=== PATIENT | male | born 1960 | race Hispanic/Latino ===

== ENCOUNTER 2016-08-29 09:56 | Inpatient (IN) | payer MEDICARE, MEDICAID, OTHER ==
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
[2016-08-29] MEDS: Sodium Chloride 0.45% 1,000 ML IV SCH (12:11)
[2016-08-29 12:12] LABS: ADD MANUAL DIFF? NO
[2016-08-29 12:15] LABS: BASO # 0.03 K/mm3 (0.0-2.0); BASO % 0.2 % (0.0-3.0); EOS # 0.2 (0.0-0.7); EOS % 1.3 % (1.5-5.0); GRAN # 9.44 (1.4-6.5); GRAN % 73.1 % (50.0-68.0); HEMATOCRIT 37.1 % (42.0-52.0); LYMPH # 2.5 (1.2-3.4); LYMPH % 19.1 % (22.0-35.0); MEAN CELL VOLUME 86.1 fL (80.0-105.0); MEAN CORPUSCULAR HEMOGLOBIN 30.4 pg (25.0-35.0); MEAN CORPUSCULAR HGB CONC 35.3 g/dl (31.0-37.0); MEAN PLATELET VOLUME 10.9 fl (7.0-11.0); MONO # 0.8 (0.1-0.6); MONO % 6.3 % (1.0-6.0); PLATELET COUNT 228 10^3/uL (120.0-450.0); RED CELL DISTRIBUTION WIDTH 12.9 % (11.5-14.5); WHITE BLOOD COUNT 12.9 10^3/ul (4.5-11.0)
[2016-08-29 12:25] LABS: ALB/GLOB RATIO 1.3 (1.1-1.8); ALKALINE PHOSPHATASE 95 U/L (38-133); ALT/SGPT 79 U/L (7-56); AST/SGOT 43 U/L (15-59); BILIRUBIN,TOTAL 0.7 mg/dL (0.2-1.3); BLOOD UREA NITROGEN 17 mg/dL (7-21); CALCIUM 9.8 mg/dL (8.4-10.5); CARBON DIOXIDE 25 mmol/L (21-33); CHLORIDE 101 mmol/L (98-107); GFR AFRICAN-AMERICAN > 60; GLUCOSE,RANDOM 232 mg/dL (70-110); INR 1.11 (0.93-1.08); PARTIAL THROMBOPLASTIN TIME 27.1 Seconds (23.7-30.8); POTASSIUM 4.8 mmol/L (3.6-5.0); SODIUM 139 mmol/L (132-148); TOTAL PROTEIN 7.8 g/dL (5.8-8.3)
[2016-08-29 15:28] VITALS: BMI 38.9
[2016-08-29] MEDS: Insulin Lispro (humaLOG) MEDIUM Coverage SC SCH ×2 (17:00→23:31)
--- NOTE | 2016-08-29 17:06 | CON ---
DATE: 08/29/2016 CHIEF COMPLAINT/HISTORY OF PRESENT ILLNESS: This is a 55-year-old diabetic vasculopath who presents with ischemia of the right foot. I know the patient from a prior arteriogram in 2014. He had a popl iteal artery angioplasty and stent placement. This was complicated by a subacute thrombosis requirin g thrombolysis. He has only 1-vessel runoff on the right via the anterior tibial artery. He is foll owed by Dr. Menezes and has had progressive ischemia of the right lower extremity. The toes are disc olored and there is a fissure present. He has had previous right toe amputations. His LIYA/PVR exam recently is consistent with restenosis of the right popliteal artery stent. PLAN: I had a conversation with Dr. Menezes. The patient will be admitted for hydration and have a lower extremity arteriogram performed with likely intervention on restenosis in the right popliteal a justina. I discussed the situation with the patient in the office and also in the hospital today. He un derstands the risks and wishes to proceed. Lonnie Saravia MD cc: [id number] TT: 08/29/2016 17:05:37 Confirmation # [id number] Dictation # [id number] adeola
[2016-08-29] MEDS ORDERED: Insulin Human NPH/Reg 70/30 Vial(3 ml) SC SCH (18:00)
[2016-08-29] MEDS: Insulin Lispro 1 UNITS/0.01 ML SC SCH (20:44)
[2016-08-29] MEDS ORDERED: Insulin Detemir 100 units/ml Vial (Levemir) SC SCH (22:00)
[2016-08-29] MEDS: Insulin Detemir 100 units/ml Vial (Levemir) SC SCH (22:48)
--- NOTE | 2016-08-30 00:10 | CP.PCM.PN ---
Subjective - Date & Time of Evaluation Date of Evaluation: 08/30/16 Time of Evaluation: 00:10 - Subjective Subjective: Patient was seen at [facility] because he had complaint of generalized itching. Also has dryness of skin. Lotion was applied which did not help much. Denies rash, sob, wheezing. Has allergies to heparin, PCN, Tetracycline. No allergies to any food. 56 year old white male admitted with chest tightness , cough, dyspnea/Acute bronchitis. Has PMH of IDDM, HTN ,HLD, PVD , diabetic foot ulcer, acute thrombosis of right popliteal artery. Objective - Vital Signs/Intake and Output Vital Signs (last 24 hours): Temp Pulse Resp BP Pulse Ox 98.2 F 97 H 20 137/83 96 08/29/16 16:00 08/29/16 16:00 08/29/16 16:00 08/29/16 16:00 08/29/16 16:00 Intake and Output: 08/29/16 08/30/16 18:59 06:59 Intake Total 600 Balance 600 - Medications Medications: Current Medications Alprazolam (Xanax) 0.5 mg PO BID [facility] PRN Reason: Protocol Amlodipine Besylate (Norvasc) 10 mg PO DAILY [facility] Sodium Chloride (Sodium Chloride 0.45%) 1,000 mls @ 80 mls/hr IV .[id number] [facility] Last Admin: 08/29/16 12:11 Dose: 80 mls/hr Insulin Detemir (Levemir) 45 unit SC [facility] Last Admin: 08/29/16 22:48 Dose: 45 unit Insulin Human Lispro (Humalog Med) 0 units SC [facility] PRN Reason: Protocol Last Admin: 08/29/16 23:31 Dose: Not Given Insulin Human Lispro (Humalog) 10 units SC AC [facility] Last Admin: 08/29/16 20:44 Dose: Not Given Lisinopril (Zestril) 40 mg PO DAILY [facility] - Labs Labs: PT 12.0 Seconds (9.9-11.8) H 08/29/16 12:00 INR 1.11 (0.93-1.08) H 08/29/16 12:00 APTT 27.1 Seconds (23.7-30.8) 08/29/16 12:00 - Constitutional Appears: Well, No Acute Distress - Head Exam Head Exam: ATRAUMATIC, NORMAL INSPECTION, NORMOCEPHALIC - Eye Exam Eye Exam: Normal appearance - ENT Exam ENT Exam: Normal External Ear Exam - Neck Exam Neck Exam: absent: Normal Inspection - Respiratory Exam Respiratory Exam: NORMAL BREATHING PATTERN - Cardiovascular Exam Cardiovascular Exam: absent: JVD - GI/Abdominal Exam GI & Abdominal Exam: absent: Distended - Rectal Exam Rectal Exam: Deferred - Back Exam Back Exam: NORMAL INSPECTION - Neurological Exam Neurological Exam: Alert, Oriented x3 - Psychiatric Exam Psychiatric exam: Normal Affect, Normal Mood - Skin Skin Exam: Dry, Normal Color. absent: Erythema, Petechiae, Rash, Urticaria Assessment and Plan - Assessment and Plan (Free Text) Assessment: A/P:Generalized itching. Dry skin. Acute bronchitis. IDDM. Hypertension. Benadryl 50 mg PO STAT.
[2016-08-30] MEDS: Sodium Chloride 0.45% 1,000 ML IV SCH ×2 (00:23→04:49)
[2016-08-30 07:28] LABS: ADD MANUAL DIFF? NO
[2016-08-30 07:32] LABS: BASO # 0.04 K/mm3 (0.0-2.0); BASO % 0.4 % (0.0-3.0); EOS # 0.3 (0.0-0.7); GRAN # 5.95 (1.4-6.5); GRAN % 61.8 % (50.0-68.0); HEMATOCRIT 35.7 % (42.0-52.0); LYMPH # 2.5 (1.2-3.4); LYMPH % 25.8 % (22.0-35.0); MEAN CORPUSCULAR HEMOGLOBIN 29.4 pg (25.0-35.0); MEAN CORPUSCULAR HGB CONC 34.2 g/dl (31.0-37.0); MONO # 0.9 (0.1-0.6); PLATELET COUNT 212 10^3/uL (120.0-450.0); RED CELL DISTRIBUTION WIDTH 13.1 % (11.5-14.5); WHITE BLOOD COUNT 9.6 10^3/ul (4.5-11.0)
[2016-08-30] MEDS: Insulin Lispro (humaLOG) MEDIUM Coverage SC SCH ×4 (08:15→22:13)
[2016-08-30] MEDS: Insulin Lispro 1 UNITS/0.01 ML SC SCH ×4 (08:36→16:30)
[2016-08-30 08:37] LABS: ALB/GLOB RATIO 1.3 (1.1-1.8); ALKALINE PHOSPHATASE 72 U/L (38-133); ALT/SGPT 69 U/L (7-56); AST/SGOT 45 U/L (15-59); BILIRUBIN,TOTAL 0.8 mg/dL (0.2-1.3); BLOOD UREA NITROGEN 14 mg/dL (7-21); CALCIUM 9.5 mg/dL (8.4-10.5); CARBON DIOXIDE 27 mmol/L (21-33); CHLORIDE 104 mmol/L (98-107); GFR AFRICAN-AMERICAN > 60; GLUCOSE,RANDOM 129 mg/dL (70-110); POTASSIUM 4.5 mmol/L (3.6-5.0); SODIUM 141 mmol/L (132-148); TOTAL PROTEIN 7.1 g/dL (5.8-8.3)
[2016-08-30] MEDS: Insulin Detemir 100 units/ml Vial (Levemir) SC SCH ×3 (08:37→22:17)
[2016-08-30] MEDS ORDERED: Insulin Human NPH/Reg 70/30 Vial(3 ml) SC SCH (10:00)
[2016-08-30] MEDS ORDERED: Home Med 1 UNIT SC SCH ×2 (11:30→16:30)
--- NOTE | 2016-08-30 13:13 | HP ---
HISTORY OF PRESENT ILLNESS: The patient is a 56-year-old man with past medical history of insulin-de pendent diabetes mellitus, hypertension, hyperlipidemia and severe peripheral vascular disease status post acute thrombosis of the right popliteal artery and right anterior tibial artery, status post en dovascular recannulization with reperfusion, whose post-procedure course was complicated by significa nt re-thrombosis and ischemic injury and a history of diabetic foot ulcers followed closely by Dr. Axel kaur, who presented to [facility] for evaluation of discoloration t o the toes on his right foot. The patient was seen in Dr. Saravia's office approximately 1 week ago an d at that time was noted to have mild discoloration of his right toes. However, given the patient's complications with prior revascularization, medical management was initially advised. The patient wa s subsequently seen by Dr. Menezes and again, medical management was advised. However, over the foll owing several days, the patient's cyanosis had progressed and as such, the patient was advised to pre sent to the Emergency Department for evaluation for possible revascularization. PAST MEDICAL HISTORY: As per HPI. Also, history of anxiety disorder. PAST SURGICAL HISTORY: As per HPI. Also, right knee arthroscopy, spinal surgery with fusion of L4-L 5, and amputation of the right foot second toe, third toe, and second and third metatarsals. ALLERGIES: PENICILLIN, TETRACYCLINE AND HEPARIN. MEDICATIONS: Levemir 45 units SC b.i.d., Humalog 10 units SC with meals, Lipitor 20 mg p.o. daily, a mlodipine 10 mg p.o. daily, lisinopril 40 mg p.o. daily, Xanax 0.5 mg p.o. b.i.d., metformin 1000 mg p.o. b.i.d. and Eliquis 5 mg p.o. b.i.d. FAMILY HISTORY: Significant for hypertension and diabetes. SOCIAL HISTORY: The patient denies any toxic habits. REVIEW OF SYSTEMS: A 14 point review of systems is negative except as per HPI. PHYSICAL EXAMINATION: VITAL SIGNS: Temperature 98.2, pulse 90, blood pressure 144/85, respiratory rate 18, oxygen saturati on 97% on room air. GENERAL: No apparent distress. HEENT: PERRL. EOMI. No scleral icterus, no conjunctival pallor. NECK: No JVD, no bruits. LUNGS: Clear to auscultation. CARDIOVASCULAR: Regular rate and rhythm. Normal S1 and S2. ABDOMEN: Obese, normoactive bowel sounds, soft, nontender, nondistended. EXTREMITIES: No edema. Right foot with cyanosis to the remaining toes with fissure present. NEUROLOGIC: Awake, alert and oriented x 3. No focal motor deficits. LABORATORY DATA: WBC 9.6, hemoglobin 12, hematocrit 36, platelets 212. Chemistry reviewed and unrem arkable. ASSESSMENT: The patient is a 56-year-old man with past medical history of insulin-dependent diabetes mellitus, hypertension, hyperlipidemia and severe peripheral vascular disease, status post intervent ional radiology revascularization, who presented to [facility] for e valuation of progressively worsened discoloration of his right lower extremity and who is pending rep eat interventional radiology procedure. PLAN: 1. Severe PVD status post IR revascularization. Input from Dr. Lonnie Saravia noted and appreciated. The patient has ABIs consistent with restenosis of the right popliteal artery stent. Continue with I V fluid hydration. The patient is scheduled for repeat IR procedure today with Dr. Lonnie Saravia. Con tinue with Lipitor 20 mg p.o. daily. Depending on the findings of the procedure, we will discuss wit h Dr. Saravia regarding continued long-term antiplatelet versus anticoagulation therapy. 2. Insulin-dependent diabetes mellitus. Continue with Levemir 45 units SC b.i.d. and Humalog 10 uni ts SC t.i.d. with meals. Continue with metformin 1000 mg p.o. b.i.d. 3. Hypertension. Continue with lisinopril 40 mg p.o. daily and Norvasc 10 mg p.o. daily. 4. Anxiety disorder. Continue with Xanax 0.5 mg p.o. b.i.d. 5. Prophylaxis. GI prophylaxis not indicated as patient is eating. DVT prophylaxis not indicated a s patient is ambulatory. CODE STATUS: Full code. Rojelio Garzon MD cc: [id number] TT: 08/30/2016 13:12:48
[2016-08-30] MEDS ORDERED: Lidocaine 2% Inj (20ml) ONE (13:40)
[2016-08-30] MEDS ORDERED: Nitroglycerin 50mg in D5W 250 ML IV ONE (13:41)
[2016-08-30] MEDS ORDERED: Iodixanol 320 MG/ML 200 ML BOTTLE IV ONE (13:41)
[2016-08-30] MEDS ORDERED: Iodixanol 320 mg/ml 150 ml Bottle IV ONE (13:41)
[2016-08-30] MEDS ORDERED: Midazolam 2 MG/2 ML VIAL ONE ×2 (14:52→15:09)
[2016-08-30] MEDS ORDERED: Eptifibatide 20 mg/10mL Inj IVP ONE (15:21)
[2016-08-30] MEDS ORDERED: Iodixanol 320 MG/ML 100 ML BOTTLE IV ONE (16:14)
[2016-08-30] MEDS ORDERED: Eptifibatide 0.75 mg/ml 100 ML IV ONE (16:18)
--- NOTE | 2016-08-30 17:14 | CON ---
DATE: 08/30/2016 A 56-year-old male well known to the [facility] wound care team seen at bedside for janell nued evaluation and management of recent ischemic changes to his right foot. The patient was seen at the wound center yesterday where his right foot was noted to be ischemic. He was immediately told t o be admitted for vascular workup and possible vascular intervention as soon as possible. The patien t was seen by Dr. Saravia yesterday and Dr. Saravia's recommendation was for patient to have vascular int ervention in the right popliteal artery today. The patient is scheduled to have procedure done today . PAST MEDICAL HISTORY: Significant for longstanding uncontrolled insulin-dependent diabetes with [place]in[place] re peripheral arterial disease, COPD, bronchitis and arterial occlusion of the lower extremity. PAST SURGICAL HISTORY: Includes numerous pedal amputations and vascular interventions. ALLERGIES: THE PATIENT IS ALLERGIC TO HEPARIN, PENICILLIN, AND TETRACYCLINE. HOME MEDICATIONS: Include Xanax, albuterol, Humalog, Trulicity, Lantus, Zestril, Xyzal, Colace, Eliq uis, Norvasc and metformin. LABORATORY FINDINGS: Reveal a white count of 9.6, hemoglobin of 12.2, hematocrit of 35.7, platelet c ount of 212. There is no microbiology to report. VITAL SIGNS: Reveal a temperature of 98.2, pulse rate of 91, blood pressure of 145/84, and respirato ry rate of 20. OBJECTIVE: Nonpalpable pedal pulses noted bilaterally, +2 pitting edema noted bilaterally. The silvano ent is unable to detect 5.07 gram monofilament wire testing bilaterally. Distal aspect of the right forefoot presents with discoloration of the remaining digits which appear bluish-purplish in color. There is noted to be superficial fissuring at the base of the hallux and second digit. There is no p urulence to suggest underlying abscess formation. There are no signs of cellulitic activity. ASSESSMENT: Impending ischemia to the right lower extremity. PLAN: The patient was admitted for hydration and is undergoing restenosis in the right popliteal are a today. The patient's wounds will be covered gently with a dry sterile dressing as to not compress the vessels and exacerbate his condition. The patient will be seen and followed after procedure. Rolf Carballo DPM cc: [id number] TT: 08/30/2016 17:13:49 Confirmation # [id number] Dictation # [id number]
[2016-08-30] MEDS: Eptifibatide 0.75 mg/ml 100 ML IV SCH (21:35)
--- NOTE | 2016-08-30 22:43 | VASCULAR ---
PROCEDURE: 1. Abdominal aortogram and bilateral lower extremity runoff with right selective views. 2. Right popliteal artery stent recanalization with jet stream atherectomy and drug-eluting balloon angioplasty 3. Focal right anterior tibial artery angioplasty its mid segment and at the ankle. 4. Salvage percutaneous catheter-directed thrombo lysis of the distal right anterior tibial artery HISTORY: Severe peripheral vascular disease. Previous right popliteal artery stent placement. Thrombosed stent with ischemic ulceration of the right foot. PHYSICIAN(S): Lonnie Saravia M.D. TECHNIQUE: The relative risks and indications of the procedure were explained to the patient and consent obtained. The patient was hydrated prior to the procedure and the appropriate labs drawn. The patient was placed supine on the arteriogram table and the left groin prepped and draped in the usual sterile fashion. Conscious sedation and monitoring were provided throughout the procedure by a nurse. Via a left common femoral artery approach, a 5 [place]an sheath was placed in the left groin. Through the sheath and over a guidewire, a 5 [place]an flush catheter was placed in the abdominal aorta at the level of the renal arteries and a PA DSA abdominal aortogram performed. The catheter was pulled down to the aortic bifurcation and bilateral oblique DSA pelvic arteriograms performed. Overlapping bilateral lower extremity DSA arteriograms were obtained from the inguinal ligaments to the feet. A 0.035 angled Glidewire was advanced over the bifurcation and placed in the distal right SFA. A 7 [place]an 65 cm destination sheath was placed in the mid to distal right SFA.. The patient has a questionable allergy to heparin. Subsequently integrilin in was utilized. The occluded right popliteal artery stent was crossed easily with a trail of laser catheter. 0.014 bare wire was placed in the right tibioperoneal trunk. Jet stream atherectomy of the occluded right popliteal stent was performed with a 2.1-3.0 catheter. Antegrade flow was re-established. The right popliteal artery was then dilated with 4 and 5 mm drug-eluting balloons. The focal stenosis in the mid right anterior tibial artery was dilated with a root 3.0 mm balloon. The distal right anterior tibial artery was dilated at the ankle with the same 3.0 mm balloon. A small occlusive embolus was noted in the terminal right anterior tibial artery. Through a laser catheter, 4 milligrams of tPA was delivered to the terminal right anterior tibial artery with using pulse-spray technique. The small embolus was successfully lysed. Completion angiograms were obtained. The sheath was removed and hemostasis obtained with a Perclose device. The patient will remain on integrellin for 18 hours. The patient tolerated the procedure well. FINDINGS: There are single renal arteries bilaterally which are widely patent and normal in appearance. The nephrograms are symmetric in appearance. The infrarenal abdominal aorta is widely patent without a radiographically significant stenosis. The aortic bifurcation is widely patent. The common and external iliac arteries are normal in appearance without a significant stenosis. The internal iliac arteries are patent bilaterally. Right lower extremity: The right common femoral artery is patent. The right profunda femoral artery is patent. The right superficial femoral artery is smoothly calcified but widely patent without radiographically significant stenosis.. The right popliteal artery stent is completely occluded. There is reconstitution of the terminal right popliteal artery. There is severe right trifurcation and tibial occlusive disease. There is single vessel runoff via the right anterior tibial artery. There is a severe focal stenosis in the mid right anterior tibial artery. A 2nd moderate to severe stenosis is seen in the terminal right anterior tibial artery. The right peroneal and posterior tibial arteries are occluded. There is severe right pedal occlusive disease. Left lower extremity: Left common femoral artery is patent. The left profunda femoral artery is patent. The left superficial femoral artery is calcified and patent with a moderate stenosis distally.. The left popliteal artery is patent. There is severe left trifurcation and tibial occlusive disease. There is 2 vessel runoff via the left anterior tibial and posterior tibial arteries. All tight focal stenoses are noted in the left anterior tibial artery. IMPRESSION: 1.Successful recanalization of the occluded right popliteal stent using jet stream atherectomy and drug-eluting balloon angioplasty. 2. Successful right anterior tibial artery angioplasty. 3. Salvage pulse- spray thrombolysis of the terminal right anterior tibial artery. 4. 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
[2016-08-31] MEDS: Eptifibatide 0.75 mg/ml 100 ML IV SCH ×2 (02:14→08:36)
[2016-08-31] MEDS: Sodium Chloride 0.45% 1,000 ML IV SCH (04:16)
[2016-08-31 07:17] LABS: ADD MANUAL DIFF? NO
[2016-08-31 07:30] LABS: BASO # 0.04 K/mm3 (0.0-2.0); BASO % 0.4 % (0.0-3.0); EOS # 0.2 (0.0-0.7); EOS % 1.6 % (1.5-5.0); GRAN # 7.41 (1.4-6.5); HEMATOCRIT 36.7 % (42.0-52.0); LYMPH % 18.5 % (22.0-35.0); MEAN CORPUSCULAR HEMOGLOBIN 29.6 pg (25.0-35.0); MEAN CORPUSCULAR HGB CONC 34.1 g/dl (31.0-37.0); MEAN PLATELET VOLUME 11.2 fl (7.0-11.0); MONO # 1.3 (0.1-0.6); MONO % 11.5 % (1.0-6.0); PLATELET COUNT 226 10^3/uL (120.0-450.0); RED CELL DISTRIBUTION WIDTH 13.2 % (11.5-14.5); WHITE BLOOD COUNT 10.9 10^3/ul (4.5-11.0)
[2016-08-31 07:52] LABS: ALB/GLOB RATIO 1.2 (1.1-1.8); ALKALINE PHOSPHATASE 70 U/L (38-133); ALT/SGPT 73 U/L (7-56); AST/SGOT 42 U/L (15-59); BILIRUBIN,TOTAL 1.4 mg/dL (0.2-1.3); BLOOD UREA NITROGEN 11 mg/dL (7-21); CALCIUM 9.5 mg/dL (8.4-10.5); CARBON DIOXIDE 29 mmol/L (21-33); CHLORIDE 102 mmol/L (98-107); GFR AFRICAN-AMERICAN > 60; GLUCOSE,RANDOM 169 mg/dL (70-110); POTASSIUM 4.3 mmol/L (3.6-5.0); SODIUM 139 mmol/L (132-148); TOTAL PROTEIN 7.3 g/dL (5.8-8.3)
[2016-08-31] MEDS: Insulin Lispro (humaLOG) MEDIUM Coverage SC SCH ×3 (08:40→21:45)
--- NOTE | 2016-08-31 08:41 | CP.PCM.PN ---
<Jihan Cates - Last Filed: 08/31/16 08:37> Subjective - Date & Time of Evaluation Date of Evaluation: 08/31/16 Time of Evaluation: 08:37 - Subjective Subjective: 56 y/o male seen at bedside with attending Dr. Menezes for management of ischemic changes to right foot. Patient was seen by Dr. Saravia and had a revascularization of his right popliteal artery performed. Patient denies any acute events overnight. Patient's dressing remains clean,dry,intact. Patient denies any pedal complaints, denies n/f/v/c/d/sob. Objective - Vital Signs/Intake and Output Vital Signs (last 24 hours): Temp Pulse Resp BP Pulse Ox 98.0 F 99 H 20 144/82 100 08/31/16 06:00 08/31/16 06:00 08/31/16 06:00 08/31/16 06:00 08/31/16 06:00 Intake and Output: 08/31/16 08/31/16 06:59 18:59 Intake Total 1161 Output Total 1005 Balance 156 - Medications Medications: Current Medications Alprazolam (Xanax) 0.5 mg PO BID [facility] PRN Reason: Protocol Last Admin: 08/30/16 21:31 Dose: 0.5 mg Amlodipine Besylate (Norvasc) 10 mg PO DAILY [facility] Last Admin: 08/30/16 09:57 Dose: 10 mg Apixaban (Eliquis) 5 mg PO BID [facility] PRN Reason: Protocol Atorvastatin Calcium (Lipitor) 20 mg PO DIN [facility] Sodium Chloride (Sodium Chloride 0.45%) 1,000 mls @ 80 mls/hr IV .[id number] [facility] Stop: 08/31/16 12:00 Last Admin: 08/31/16 04:16 Dose: 80 mls/hr Eptifibatide (Integrilin) 100 mls @ 17.619 mls/hr IV .Q5H41M [facility]; 2 MCG/KG/MIN PRN Reason: Protocol Stop: 08/31/16 12:31 Last Admin: 08/31/16 02:14 Dose: 17.619 mls/hr Insulin Detemir (Levemir) 45 unit SC ACBHS [facility] Last Admin: 08/30/16 22:17 Dose: 45 unit Insulin Human Lispro (Humalog Med) 0 units SC ACHS [facility] PRN Reason: Protocol Last Admin: 08/30/16 22:13 Dose: Not Given Insulin Human Lispro (Humalog) 10 units SC AC [facility] Last Admin: 08/30/16 16:30 Dose: Not Given Lisinopril (Zestril) 40 mg PO DAILY [facility] Last Admin: 08/30/16 09:57 Dose: 40 mg - Labs Labs: 08/31/16 07:00 08/31/16 07:00 PT 12.0 Seconds (9.9-11.8) H 08/29/16 12:00 INR 1.11 (0.93-1.08) H 08/29/16 12:00 APTT 27.1 Seconds (23.7-30.8) 08/29/16 12:00 - Constitutional Appears: Well, Non-toxic, No Acute Distress - Extremities Exam Additional comments: Vasc: nonpalpable pedal pulses bilaterally, +2 pitting edema b/l, CFT < 3 sec to all digits, TG wnl Neuro: grossly diminished derm: bluish purple discoloration noted to distal right forefoot, superficial fissuring at the base of the first and second digit plantarly, no purulence, no drainage, no malodor, no acute clinical signs of infection ortho: no pain on palpation of right forefoot - Neurological Exam Neurological Exam: Alert, Awake, Oriented x3 - Psychiatric Exam Psychiatric exam: Normal Affect, Normal Mood Assessment and Plan - Assessment and Plan (Free Text) Assessment: 56 y/o male seen at bedside for ischemic changes of right forefoot secondary to PAD Plan: patient evaluated and seen at bedside with attending Dr. Menezes labs and vitals reviewed applied light DSD to right forefoot vascular- performed recanalization of occluded right popliteal stent yesterday with right anterior tibial artery angioplasty discussed in detail about exercise/walking program for patient patient instructed to continue moving his legs or else possibility of amputation in the future patient demonstrates verbal understanding of treatment plan patient instructed on importance of diabetic glucose control podiatry will continue to monitor while patient remains in house patient to follow up with Dr. Menezes in wound care center upon discharge <Liseth Menezes - Last Filed: 09/02/16 14:54> Objective - Vital Signs/Intake and Output Vital Signs (last 24 hours): Temp Pulse Resp BP Pulse Ox 98.6 F 100 H 22 138/82 96 09/01/16 09:30 09/01/16 09:30 09/01/16 09:30 09/01/16 09:30 09/01/16 09:30 - Labs Labs: 09/01/16 07:50 09/01/16 07:50 PT 12.0 Seconds (9.9-11.8) H 08/29/16 12:00 INR 1.11 (0.93-1.08) H 08/29/16 12:00 APTT 27.1 Seconds (23.7-30.8) 08/29/16 12:00 Attending/Attestation - Attestation I have personally seen and examined this patient.: Yes I have fully participated in the care of the patient.: Yes I have reviewed all pertinent clinical information, including history, physical exam and plan: Yes
[2016-08-31] MEDS: Insulin Detemir 100 units/ml Vial (Levemir) SC SCH ×2 (09:19→21:40)
[2016-08-31] MEDS: Insulin Lispro 1 UNITS/0.01 ML SC SCH ×2 (09:19→17:35)
--- NOTE | 2016-08-31 09:32 | PN ---
DATE: 08/31/2016 SUBJECTIVE: The patient seen and examined at bedside on the telemetry velez. No acute events overnig ht. He remains afebrile and hemodynamically stable. The patient is status post successful IR recann ulization of the occluded right popliteal stent and right anterior tibial artery angioplasty. The maryann cramer was transferred to the telemetry velez post procedure and this morning is doing well. The patie nt reports improved sensation to his right foot and otherwise offers no complaints. OBJECTIVE: VITAL SIGNS: Temperature 98, pulse 69, blood pressure 144/82, respiratory rate 20, oxygen saturation 100% on room air. GENERAL: No apparent distress. HEENT: PERRL, EOMI. No scleral icterus. No conjunctival pallor. NECK: No JVD, no bruits. LUNGS: Clear to auscultation. CARDIOVASCULAR: Regular rate and rhythm, normal S1, S2. ABDOMEN: Obese, normoactive bowel sounds, soft, nontender, nondistended. EXTREMITIES: No edema. Right foot with cyanosis to remaining toes; however, improved from prior. C apillary refill less than 2 seconds. NEUROLOGIC: Awake, alert and oriented x 3. No focal motor deficits. LABORATORY DATA: WBC 10.9 with 68% neutrophils, hemoglobin 12, hematocrit 36, platelets 226. Chemis try reviewed and unremarkable. ASSESSMENT: The patient is a 56-year-old man with past medical history of insulin-dependent diabetes mellitus, hypertension, hyperlipidemia and severe peripheral vascular disease, status post intervent ional radiology revascularization who presented to [facility] Department for ev aluation of progressively worsening discoloration of his right lower extremity and who is now status post recannulization of restenosed right popliteal stent and angioplasty of the right anterior tibial artery. PLAN: 1. Severe peripheral vascular disease, status post interventional radiology revascularization. Inpu t from Dr. Lonnie Saravia noted and appreciated. Will discontinue Integrilin drip and resume Eliquis 5 mg p.o. b.i.d. Continue with Lipitor 20 mg p.o. daily. Continue with local wound care as per Dr. Axel kaur and the podiatric team. This morning, Dr. Menezes and myself had a lengthy discussion with the patient regarding the need to initiate an exercise regimen so as to improve his overall prognosis an d so as to salvage the right foot. 2. Insulin-dependent diabetes mellitus. Continue with Levemir 45 units SC b.i.d. and Humalog 10 uni ts SC t.i.d. with meals. Continue with metformin 1000 mg p.o. b.i.d. 3. Hypertension. Continue with lisinopril 40 mg p.o. daily and Norvasc 10 mg p.o. daily. 4. Anxiety disorder. Continue with Xanax 0.5 mg p.o. b.i.d. 5. Prophylaxis. GI prophylaxis not indicated as the patient is eating. DVT prophylaxis not indicat ed as the patient is on Eliquis. CODE STATUS: Full code. oRjelio Garzon MD cc: [id number] TT: 08/31/2016 09:31:43 Confirmation # [id number] Dictation # [id number] alvin
[2016-09-01 08:00] LABS: ADD MANUAL DIFF? NO
[2016-09-01 08:12] LABS: BASO # 0.02 K/mm3 (0.0-2.0); BASO % 0.2 % (0.0-3.0); EOS # 0.2 (0.0-0.7); EOS % 1.5 % (1.5-5.0); GRAN # 7.88 (1.4-6.5); GRAN % 67.8 % (50.0-68.0); HEMATOCRIT 34.7 % (42.0-52.0); LYMPH # 2.3 (1.2-3.4); LYMPH % 19.6 % (22.0-35.0); MEAN CELL VOLUME 87.2 fL (80.0-105.0); MEAN CORPUSCULAR HEMOGLOBIN 29.6 pg (25.0-35.0); MEAN PLATELET VOLUME 10.9 fl (7.0-11.0); MONO # 1.3 (0.1-0.6); MONO % 10.9 % (1.0-6.0); PLATELET COUNT 208 10^3/uL (120.0-450.0); RED CELL DISTRIBUTION WIDTH 13.1 % (11.5-14.5); WHITE BLOOD COUNT 11.6 10^3/ul (4.5-11.0)
[2016-09-01] MEDS: Insulin Detemir 100 units/ml Vial (Levemir) SC SCH (08:12)
[2016-09-01] MEDS: Insulin Lispro (humaLOG) MEDIUM Coverage SC SCH (08:13)
[2016-09-01] MEDS: Insulin Lispro 1 UNITS/0.01 ML SC SCH (08:21)
[2016-09-01 08:55] LABS: ALKALINE PHOSPHATASE 70 U/L (38-133); ALT/SGPT 63 U/L (7-56); AST/SGOT 38 U/L (15-59); BILIRUBIN,TOTAL 1.2 mg/dL (0.2-1.3); BLOOD UREA NITROGEN 14 mg/dL (7-21); CALCIUM 9.3 mg/dL (8.4-10.5); CARBON DIOXIDE 27 mmol/L (21-33); CHLORIDE 101 mmol/L (98-107); GFR AFRICAN-AMERICAN > 60; GLUCOSE,RANDOM 199 mg/dL (70-110); POTASSIUM 4.3 mmol/L (3.6-5.0); SODIUM 139 mmol/L (132-148)
[2016-09-01 08:58] VITALS: BP 138/82; PULSE 100; RESP 22; TEMP 98.6; O2SAT 96
[2016-09-01 08:58] LABS: TOTAL PROTEIN 7.2 g/dL (5.8-8.3)
[2016-09-01 09:07] LABS: ALB/GLOB RATIO 1.3 (1.1-1.8)
--- NOTE | 2016-09-01 09:49 | PN ---
DATE: 09/01/2016 SUBJECTIVE: The patient seen and examined at bedside on the general medical velez. No acute events o vernight. He remains afebrile and hemodynamically stable. The patient is doing well status post his IR revascularization of his occluded right popliteal stent. This morning, he states he feels well a nd offers no complaints. OBJECTIVE: VITAL SIGNS: Temperature 98.4, pulse 100, blood pressure 147/96, respiratory rate 20, oxygen saturat ion 100% on room air. GENERAL: No apparent distress. HEENT: PERRL. EOMI. No scleral icterus. No conjunctival pallor. NECK: No JVD, no bruits. LUNGS: Clear to auscultation. CARDIOVASCULAR: Regular rate and rhythm. Normal S1 and S2. ABDOMEN: Obese, normoactive bowel sounds, soft, nontender, nondistended. EXTREMITIES: No edema. Right foot with improving cyanosis to his remaining toes and with satisfacto ry capillary refill. NEUROLOGIC: Awake, alert and oriented x 3. No focal motor deficits. LABORATORY DATA: WBC 11.6 with 67% neutrophils, hemoglobin 12, hematocrit 35, platelets 208. Chemis try pending. ASSESSMENT: The patient is a 56-year-old man with past medical history of insulin-dependent diabetes mellitus, hypertension, hyperlipidemia and severe peripheral vascular disease, status post IR revasc ularization who presents to [facility] Emergency Department for evaluation of progressive ly worsening discoloration of his right lower extremity and who is now status post repeat IR revascul arization of the restenosed right popliteal stent and angioplasty of the right anterior tibial artery . PLAN: 1. Severe PVD status post IR revascularization. Input from Dr. Lonnie Saravia noted and appreciated. Continue with Eliquis 5 mg p.o. b.i.d. and Lipitor 20 mg p.o. daily. Continue with local wound care per Dr. Menezes and the podiatric team. Continue to encourage ambulation. 2. Insulin-dependent diabetes mellitus. Continue with Levemir 45 units SC b.i.d. and Humalog 10 uni ts SC t.i.d. with meals. Continue with metformin 1000 mg p.o. b.i.d. 3. Hypertension. Blood pressure controlled. Continue with lisinopril 40 mg p.o. daily and Norvasc 10 mg p.o. daily. 4. Anxiety disorder. Continue with Xanax 0.5 mg p.o. b.i.d. 5. Prophylaxis. GI prophylaxis not indicated as patient is eating. The patient remains on Eliquis for his PVD, thus DVT prophylaxis not indicated. CODE STATUS: Full code. Rojelio Garzon MD cc: [id number] TT: 09/01/2016 09:48:24 Confirmation # [id number] Dictation # [id number] an
== END 2016-09-01 10:48 | disposition home or self-care (01) | DRG 271 ==
LOC: ED 09:56 → ERH 12:50 → 5RSO 14:27 → 2RSO 08-30 18:52 → 5RSO 08-31 10:38
PROVIDERS: ADMIT Student in an Organized Health Care Education/Training Program; ATTEND Student in an Organized Health Care Education/Training Program
PROC: 047M3Z1 Dilation of Right Popliteal Artery using Drug-Coated Balloon, Percutaneous Approach (ICD-10-PCS; principal; 2016-08-30)
PROC: 04CM3ZZ Extirpation of Matter from Right Popliteal Artery, Percutaneous Approach (ICD-10-PCS; 2016-08-30)
PROC: 047P3ZZ Dilation of Right Anterior Tibial Artery, Percutaneous Approach (ICD-10-PCS; 2016-08-30)
PROC: 3E05317 Introduction of Other Thrombolytic into Peripheral Artery, Percutaneous Approach (ICD-10-PCS; 2016-08-30)
PROC: B40DYZZ Plain Radiography of Aorta and Bilateral Lower Extremity Arteries using Other Contrast (ICD-10-PCS; 2016-08-30)
PROC: 3E033PZ Introduction of Platelet Inhibitor into Peripheral Vein, Percutaneous Approach (ICD-10-PCS; 2016-08-30)
DX: E10.51 Type 1 diabetes mellitus with diabetic peripheral angiopathy without gangrene (principal); J44.0 Chronic obstructive pulmonary disease with (acute) lower respiratory infection; E10.621 Type 1 diabetes mellitus with foot ulcer; T82.858A Stenosis of other vascular prosthetic devices, implants and grafts, initial encounter; J44.1 Chronic obstructive pulmonary disease with (acute) exacerbation; I10 Essential (primary) hypertension; E78.5 Hyperlipidemia, unspecified; J20.9 Acute bronchitis, unspecified; L29.9 Pruritus, unspecified; Z79.01 Long term (current) use of anticoagulants; Z79.4 Long term (current) use of insulin; Z79.899 Other long term (current) drug therapy; Z82.49 Family history of ischemic heart disease and other diseases of the circulatory system; Z83.3 Family history of diabetes mellitus; Z86.718 Personal history of other venous thrombosis and embolism; Z88.8 Allergy status to other drugs, medicaments and biological substances; Z88.1 Allergy status to other antibiotic agents; Z88.0 Allergy status to penicillin; Z89.421 Acquired absence of other right toe(s); I77.1 Stricture of artery; F41.9 Anxiety disorder, unspecified; L97.509 Non-pressure chronic ulcer of other part of unspecified foot with unspecified severity

== ENCOUNTER 2016-09-12 11:58 | Inpatient (IN) | payer MEDICARE, OTHER ==
[2016-09-08 06:50] VITALS: BMI 38.3
[2016-09-12] MEDS ORDERED: Ketamine 10 mg/ml Inj (20 ml) ONE (15:55)
[2016-09-12] MEDS ORDERED: Midazolam 2 MG/2 ML VIAL ONE ×2 (15:56→15:57)
[2016-09-12] MEDS ORDERED: Lidocaine 1% Inj (20ml) ONE ×2 (16:16→16:17)
[2016-09-12] MEDS ORDERED: Bupivacaine 0.5% Inj(30mL) ONE (16:16)
[2016-09-12] MEDS ORDERED: Propofol 10 mg/ml Inj (20 ML) ONE (16:44)
[2016-09-12] MEDS ORDERED: Phenylephrine 10 mg/ml Inj ONE (17:26)
[2016-09-12] MEDS ORDERED: HYDROmorphone 0.5 mg/0.5 ml ISec IVP PRN (18:21)
[2016-09-12] MEDS ORDERED: Sodium Chloride 0.9% 1,000 ML IV SCH (18:30)
--- NOTE | 2016-09-12 18:35 | PCM.SURG1 ---
Surgeon's Initial Post Op Note - Surgeon's Notes Surgeon: Dr. Menezes Tripper: Dr. Adelita Tran PGY1 Type of Anesthesia: IV Sedation, Local Anesthesia Administered By: Dr. Estrada Pre-Operative Diagnosis: Right foot ischmic changes to forefoot with dry gangrene to Digits Operative Findings: Materials: TLC Drain. Skin [place]. 3-0 Monocril. 4-0 Nylon Post-Operative Diagnosis: same Operation Performed: Right foot Trans Metatarsal Amputation Specimen/Specimens Removed: -Forefoot including 1st, 4th and 5th digits,. - metatarsal heads/necks of 1st, 2nd, 3rd, 4th and 5th metatarsals Estimated Blood Loss: EBL {In ML}: 30 Blood Products Given: N/A Drains Used: Munir Post-Op Condition: Good Date of Surgery/Procedure: 09/12/16 Time of Surgery/Procedure: 04:30
[2016-09-12] MEDS ORDERED: Oxycodone/Acetaminophen 5/325 mg Tab ONE (19:04)
[2016-09-12] MEDS: Oxycodone/Acetaminophen 5/325 mg Tab PO PRN ×2 (19:07→23:57)
--- NOTE | 2016-09-12 23:11 | CP.PCM.PN ---
Subjective - Subjective Subjective: [id number] . On Lantus at home.45 Asked nurse to get orders from PMD. Objective - Vital Signs/Intake and Output Vital Signs (last 24 hours): Temp Pulse Resp BP Pulse Ox 98.1 F 93 H 16 143/81 99 09/12/16 19:05 09/12/16 19:05 09/12/16 19:05 09/12/16 19:05 09/12/16 19:05 Intake and Output: 09/12/16 09/13/16 18:59 06:59 Intake Total 100 540 Balance 100 540 - Medications Medications: Current Medications Acetaminophen (Tylenol 325mg Tab) 650 mg PO Q4H PRN PRN Reason: Pain, Mild (1-3) Oxycodone/Acetaminophen (Percocet 5/325 Mg Tab) 1 tab PO Q4H PRN PRN Reason: Pain, moderate (4-7) Stop: 09/15/16 18:25 Oxycodone/Acetaminophen (Percocet 5/325 Mg Tab) 2 tab PO Q4H PRN PRN Reason: Pain, severe (8-10) Stop: 09/15/16 18:25 Last Admin: 09/12/16 19:07 Dose: 2 tab
[2016-09-12] MEDS: Insulin Detemir 100 units/ml Vial (Levemir) SC SCH (23:57)
[2016-09-13 07:08] LABS: ADD MANUAL DIFF? NO
[2016-09-13 07:27] LABS: ALB/GLOB RATIO 1.2 (1.1-1.8); ALKALINE PHOSPHATASE 70 U/L (38-133); ALT/SGPT 49 U/L (7-56); AST/SGOT 30 U/L (15-59); BILIRUBIN,TOTAL 0.6 mg/dL (0.2-1.3); BLOOD UREA NITROGEN 15 mg/dL (7-21); CALCIUM 9.1 mg/dL (8.4-10.5); CARBON DIOXIDE 27 mmol/L (21-33); CHLORIDE 104 mmol/L (95-110); GFR AFRICAN-AMERICAN > 60; GLUCOSE,RANDOM 143 mg/dL (70-110); POTASSIUM 4.7 mmol/L (3.6-5.0); SODIUM 140 mmol/L (132-148); TOTAL PROTEIN 6.8 g/dL (5.8-8.3)
[2016-09-13] MEDS ORDERED: Insulin Lispro (humaLOG) MEDIUM Coverage SC SCH (07:30)
[2016-09-13 07:56] LABS: BASO # 0.03 K/mm3 (0.0-2.0); BASO % 0.2 % (0.0-3.0); EOS # 0.2 (0.0-0.7); EOS % 1.2 % (1.5-5.0); GRAN # 8.78 (1.4-6.5); HEMATOCRIT 31.9 % (42.0-52.0); LYMPH # 2.1 (1.2-3.4); LYMPH % 17.3 % (22.0-35.0); MEAN CELL VOLUME 87.2 fL (80.0-105.0); MEAN CORPUSCULAR HEMOGLOBIN 29.8 pg (25.0-35.0); MEAN CORPUSCULAR HGB CONC 34.2 g/dl (31.0-37.0); MEAN PLATELET VOLUME 10.6 fl (7.0-11.0); MONO # 1.1 (0.1-0.6); MONO % 9.3 % (1.0-6.0); PLATELET COUNT 210 10^3/uL (120.0-450.0); RED CELL DISTRIBUTION WIDTH 13.1 % (11.5-14.5); WHITE BLOOD COUNT 12.2 10^3/ul (4.5-11.0)
--- NOTE | 2016-09-13 08:31 | RAD ---
PROCEDURE: Right Foot Radiographs. HISTORY: right foot surgery COMPARISON: None. FINDINGS: BONES: Status post transmetatarsal amputation. No fracture. Remaining joint spaces and articular surfaces are preserved. JOINTS: Normal. SOFT TISSUES: Normal. OTHER FINDINGS: None. IMPRESSION: Transmetatarsal amputation.
[2016-09-13] MEDS: Insulin Lispro (humaLOG) MEDIUM Coverage SC SCH ×4 (08:42→23:53)
[2016-09-13] MEDS: Insulin Lispro 1 UNITS/0.01 ML SC SCH ×3 (08:43→16:53)
--- NOTE | 2016-09-13 11:41 | HP ---
HISTORY OF PRESENT ILLNESS: The patient is a 56-year-old male with past medical history of insulin-dependent diabetes mellitus, hypertension, hyperlipidemia and severe peripheral vascular disease, status post acute thrombosis of the right popliteal artery and right anterior tibial artery, status post endovascular recannulization with reperfusion, whose post-procedure course was complicated by significant re-thrombosis and ischemic injury of his right lower extremity with chronic nonhealing ulcerations and dry gangrene, who presented to [facility] for electively scheduled TMA with Dr. Menezes. The patient underwent successful TMA of his right lower extremity with Dr. Menezes and was subsequently transferred to the general medical velez for continued management of his wound drain and continued postoperative care. PAST MEDICAL HISTORY: As per HPI. Also history of anxiety disorder. PAST SURGICAL HISTORY: As per HPI. Also, right knee arthroscopy, spinal surgery with fusion of L4-L5, amputation of the right foot second toe, third toe , and second and third metatarsals. ALLERGIES: PENICILLIN, TETRACYCLINE AND HEPARIN. MEDICATIONS: Levemir 90 units SC at bedtime, Humalog 10 units SC t.i.d. with meals, Lipitor 20 mg p.o. daily, amlodipine 10 mg p.o. daily, lisinopril 40 mg p.o. daily, Xanax 0.5 mg p.o. b.i.d., metformin 1000 mg p.o. b.i.d. and Eliquis 5 mg p.o. b.i.d. FAMILY HISTORY: Significant for hypertension and diabetes. SOCIAL HISTORY: The patient denies any toxic habits. REVIEW OF SYSTEMS: A 14 point review of systems is negative except as per HPI. PHYSICAL EXAMINATION: VITAL SIGNS: Temperature 98.5, pulse 96, blood pressure 132/79, respiratory rate 20, oxygen saturation 96% on room air. GENERAL: No apparent distress. HEENT: PERRL, EOMI. No scleral icterus, no conjunctival pallor. NECK: No JVD, no bruits. LUNGS: Clear to auscultation. CARDIOVASCULAR: Regular rate and rhythm, normal S1 and S2. ABDOMEN: Obese, normoactive bowel sounds, soft, nontender, nondistended. EXTREMITIES: No edema. Right foot with GERONIMO wrapping and wound drain in place, draining sanguineous fluid. NEUROLOGIC: Awake, alert and oriented x 3. No focal motor deficits. LABORATORY DATA: WBC 12.2 with 72% neutrophils, hemoglobin 11, hematocrit 32, platelets 210. Chemistry reviewed and unremarkable. ASSESSMENT: The patient is a 56-year-old man with past medical history of insulin-dependent diabetes mellitus, hypertension, hyperlipidemia and severe peripheral vascular disease, status post interventional radiology revascularization whose post-procedure course was complicated by chronic nonhealing foot ulcers and dry gangrene, who presented to [facility] for electively scheduled right lower extremity TMA and who is now status post successful TMA, postop day #1. PLAN: 1. Severe peripheral vascular disease, status post interventional radiology revascularization, status post right TMA postop day #1. Continue with postoperative care as per Dr. Menezes and the podiatric team. Continue with Lipitor 20 mg p.o. daily and Eliquis 5 mg p.o. b.i.d. 2. Insulin-dependent diabetes mellitus. Continue with Levemir 45 units SC b.i.d. and Humalog 10 units SC t.i.d. with meals and metformin 1000 mg p.o. b.i.d. 3. Hypertension. Continue with lisinopril 40 mg p.o. daily and amlodipine 10 mg p.o. daily. 4. Anxiety disorder. Continue with Xanax 0.5 mg p.o. b.i.d. 5. Hyperlipidemia. Continue with Lipitor 20 mg p.o. daily. 6. Prophylaxis. Gastrointestinal prophylaxis is not indicated as patient is eating. The patient remains on Eliquis for his peripheral vascular disease, thus deep venous thrombosis prophylaxis not indicated. CODE STATUS: Full code. Rojelio Garzon MD cc: [id number] TT: 09/13/2016 11:40:33 rosy [email or web address]
--- NOTE | 2016-09-13 12:14 | CP.PCM.PN ---
<Alejandra Tran - Last Filed: 09/13/16 12:09> Subjective - Date & Time of Evaluation Date of Evaluation: 09/13/16 Time of Evaluation: 10:50 - Subjective Subjective: 56 y/o male patient 1 day s/p Right foot TMA was seen at bedside with attending Dr. Carballo. Patient is resting comfortably in bed with no acute overnight distress. AAO x3. Dressing to Right lower extremity remains clean dry and intact. Patient states that he feels mild pain to the surgical site but the pain is tolerable. Patient denies any pedal complaints, denies n/f/v/c/d/sob. Objective - Vital Signs/Intake and Output Vital Signs (last 24 hours): Temp Pulse Resp BP Pulse Ox 98.5 F 102 H 20 126/80 96 09/13/16 07:30 09/13/16 10:35 09/13/16 07:30 09/13/16 10:35 09/13/16 07:30 Intake and Output: 09/13/16 09/13/16 06:59 18:59 Intake Total 540 Output Total 70 Balance 540 -70 - Medications Medications: Current Medications Acetaminophen (Tylenol 325mg Tab) 650 mg PO Q4H PRN PRN Reason: Pain, Mild (1-3) Alprazolam (Xanax) 0.5 mg PO HS PRN; Protocol PRN Reason: Anxiety Amlodipine Besylate (Norvasc) 10 mg PO DAILY [facility] Last Admin: 09/13/16 10:35 Dose: 10 mg Apixaban (Eliquis) 5 mg PO BID [facility] PRN Reason: Protocol Last Admin: 09/13/16 10:35 Dose: 5 mg Atorvastatin Calcium (Lipitor) 20 mg PO DIN [facility] Docusate Sodium (Colace) 100 mg PO BID [facility] Last Admin: 09/13/16 10:35 Dose: 100 mg Insulin Detemir (Levemir) 45 unit SC Q12H [facility] Last Admin: 09/12/16 23:57 Dose: 45 unit Insulin Human Lispro (Humalog Med) 0 units SC ACHS [facility] PRN Reason: Protocol Last Admin: 09/13/16 11:59 Dose: 5 units Insulin Human Lispro (Humalog) 10 units SC AC [facility] Last Admin: 09/13/16 11:59 Dose: 10 units Lisinopril (Zestril) 40 mg PO ACB [facility] Last Admin: 09/13/16 08:41 Dose: 40 mg Metformin HCl (Glucophage) 1,000 mg PO BID [facility] Last Admin: 09/13/16 10:35 Dose: 1,000 mg Oxycodone/Acetaminophen (Percocet 5/325 Mg Tab) 1 tab PO Q4H PRN PRN Reason: Pain, moderate (4-7) Stop: 09/15/16 18:25 Oxycodone/Acetaminophen (Percocet 5/325 Mg Tab) 2 tab PO Q4H PRN PRN Reason: Pain, severe (8-10) Stop: 09/15/16 18:25 Last Admin: 09/12/16 23:57 Dose: 2 tab - Labs Labs: 09/13/16 06:45 09/13/16 06:45 - Constitutional Appears: Well, Non-toxic, No Acute Distress - Extremities Exam Additional comments: Right lower extremity exam Dressing to right lower extremity remains clean dry and intact with drain collection of 10 mL - Neurological Exam Neurological Exam: Alert, Awake, Oriented x3 - Psychiatric Exam Psychiatric exam: Normal Affect, Normal Mood - Skin Skin Exam: Normal Color, Warm Assessment and Plan - Assessment and Plan (Free Text) Assessment: 56 year old male patient presents 1 day s/p Right foot Trans-Metatarsal Amputation Plan: Patient was seen, evaluated and treated with all questions and concerns addressed Rounded with Dr. Carballo present labs and vitals reviewed Drain and Dressing to Right foot is left intact Podiatry will change dressing tomorrow Podiatry will continue to follow in-house <Rolf Carballo - Last Filed: 09/13/16 15:26> Objective - Vital Signs/Intake and Output Vital Signs (last 24 hours): Temp Pulse Resp BP Pulse Ox 98.5 F 102 H 20 126/80 96 09/13/16 07:30 09/13/16 10:35 09/13/16 07:30 09/13/16 10:35 09/13/16 07:30 Intake and Output: 09/13/16 09/13/16 06:59 18:59 Intake Total 540 Output Total 70 Balance 540 -70 - Medications Medications: Current Medications Acetaminophen (Tylenol 325mg Tab) 650 mg PO Q4H PRN PRN Reason: Pain, Mild (1-3) Alprazolam (Xanax) 0.5 mg PO HS PRN; Protocol PRN Reason: Anxiety Amlodipine Besylate (Norvasc) 10 mg PO DAILY [facility] Last Admin: 09/13/16 10:35 Dose: 10 mg Apixaban (Eliquis) 5 mg PO BID [facility] PRN Reason: Protocol Last Admin: 09/13/16 10:35 Dose: 5 mg Atorvastatin Calcium (Lipitor) 20 mg PO DIN [facility] Docusate Sodium (Colace) 100 mg PO BID [facility] Last Admin: 09/13/16 10:35 Dose: 100 mg Insulin Detemir (Levemir) 45 unit SC Q12H [facility] Last Admin: 09/13/16 12:15 Dose: 45 unit Insulin Human Lispro (Humalog Med) 0 units SC ACHS [facility] PRN Reason: Protocol Last Admin: 09/13/16 11:59 Dose: 5 units Insulin Human Lispro (Humalog) 10 units SC AC [facility] Last Admin: 09/13/16 11:59 Dose: 10 units Lisinopril (Zestril) 40 mg PO ACB [facility] Last Admin: 09/13/16 08:41 Dose: 40 mg Metformin HCl (Glucophage) 1,000 mg PO BID [facility] Last Admin: 09/13/16 10:35 Dose: 1,000 mg Oxycodone/Acetaminophen (Percocet 5/325 Mg Tab) 1 tab PO Q4H PRN PRN Reason: Pain, moderate (4-7) Stop: 09/15/16 18:25 Oxycodone/Acetaminophen (Percocet 5/325 Mg Tab) 2 tab PO Q4H PRN PRN Reason: Pain, severe (8-10) Stop: 09/15/16 18:25 Last Admin: 09/12/16 23:57 Dose: 2 tab - Labs Labs: 09/13/16 06:45 09/13/16 06:45 Attending/Attestation - Attestation I have personally seen and examined this patient.: Yes I have fully participated in the care of the patient.: Yes I have reviewed all pertinent clinical information, including history, physical exam and plan: Yes
[2016-09-13] MEDS: Insulin Detemir 100 units/ml Vial (Levemir) SC SCH ×2 (12:15→23:52)
--- NOTE | 2016-09-14 08:21 | OP ---
PROCEDURE DATE: 09/12/2016 SURGEON: Dr. Menezes MUSHROOM GROWING SUPERVISOR: Dr. Theo Tran, PGY-1 CONTACT LENS CUTTER: Dr. Alexis ANESTHESIA: IV sedation and local. PREOPERATIVE DIAGNOSES: Right foot ischemic changes to forefoot with dry gangrene to digits 1, 4 and 5. POSTOPERATIVE DIAGNOSES: Right foot ischemic changes to forefoot with dry gangrene to digits 1, 4 and 5. NAME OF PROCEDURE: Right foot transverse metatarsal amputation. INDICATIONS: The patient is a 56-year-old male patient with the above diagnoses. The patient has exhausted all conservative treatment at this time and now requests surgical intervention. The patient signed the consent after careful explanation of benefits, risks, complications and alternatives for surgical procedure. No guarantees were given nor implied. PREPARATION: The patient was brought into the operating room and placed on the operating room table in a supine position. Timeout was performed for identification of the correct patient and procedure. After induction of IV sedation, the patient received a total of 12 mL of 1:1 mixture of 1% lidocaine plain and 0.5% Marcaine plain in a local block type fashion to the right ankle. Once local anesthesia was achieved, the right foot was then prepped and draped in normal sterile manner and the procedure began. PROCEDURE: Attention was directed to the right foot in which second and third digits were not present due to previous amputation surgery in the past. With the use of a #15 blade, a circumferential incision was made surrounding the distal aspect of the metatarsals straight down to bone, leaving more skin and soft tissue plantarly compared to dorsally, making all metatarsal heads exposed dorsally. All soft tissue attachments were freed from the metatarsal heads first, fourth and fifth with a #15 blade and pickup. After cutting all soft tissue attachments to metatarsal heads, entire forefoot distal to the metatarsophalangeal joint was removed from the proximal mid foot. Utilizing a # 15 blade and a pickup, soft tissue around the neck of the metatarsals 1-5 were freed from the osseous attachments exposing the diaphysis of the metatarsals. Metatarsal heads of second and third metatarsals were already resected from the previous surgery. Utilizing a sagittal saw, the distal aspect of the metatarsal heads 1, 4 and 5 were resected and removed from the distal aspect of the right foot. Utilizing a rasp, the remaining sharp edges of metatarsals 1-5 were debrided down for smooth edges. The thickened soft tissues were debrided for proper closure. All the exposed tendons were resected with hemostat and dissection scissors. The wound site was flushed with copious amount of mixture of normal saline. At this point, a small stab incision was made to plantar medial aspect of the right foot. A Westbrook drain was inserted into the stab incision and was embedded into the foot. A plantar tissue flap was then brought up dorsally to cover the metatarsal stumps, leaving the distal end of the Munir drain in the right foot. The remainder of the metatarsal stumps and the deep tissues were reapproximated with #3-0 Monocryl. The skin was reapproximated with a #4-0 nylon and skin lakhwinder. The wound was dressed with Adaptic and sterile gauze and Kerlix. The attending was present the entire case. POSTOPERATIVE CONDITION: The patient tolerated the anesthesia and procedure well and was escorted to the recovery room with vital signs stable and neurovascular status intact to the right foot. The patient will be admitted to the floors for IV antibiotic treatment. THEO TRAN DPM Liseth Menezes DPM cc: [id number] TT: 09/14/2016 07:37:34 en MTDD
[2016-09-14] MEDS: Insulin Lispro (humaLOG) MEDIUM Coverage SC SCH ×4 (08:27→22:15)
[2016-09-14] MEDS: Insulin Lispro 1 UNITS/0.01 ML SC SCH ×3 (08:29→16:56)
--- NOTE | 2016-09-14 09:13 | PN ---
DATE: 09/14/2016 SUBJECTIVE: The patient is seen and examined at bedside on the general medical velez. No acute event s overnight. He remains afebrile and hemodynamically stable. This morning, the patient was getting his right lower extremity dressing changed by the podiatry resident along with Dr. Menezes. Per my d iscussion with the patient and Dr. Menezes, the patient is doing very well postoperatively, and Dr. Ray mccrary anticipates him to recover quite nicely. This morning, the patient states he feels well and offers no complaints. OBJECTIVE: VITAL SIGNS: Temperature 98.4, pulse 101, blood pressure 131/79, respiratory rate 20, oxygen saturat ion 97% on room air. GENERAL: No apparent distress. HEENT: PERRL. EOMI. No scleral icterus. No conjunctival pallor. NECK: No JVD, no bruits. LUNGS: Clear to auscultation. CARDIOVASCULAR: Regular rate and rhythm. Normal S1 and S2. ABDOMEN: Obese, normoactive bowel sounds, soft, nontender, nondistended. EXTREMITIES: No edema. Right foot with GERONIMO wrapping in place. NEUROLOGIC: Awake, alert, and oriented x 3. No focal motor deficits. LABORATORY DATA: Morning labs are pending. ASSESSMENT: The patient is a 56-year-old male with past medical history of insulin-dependent diabete s mellitus, hypertension, hyperlipidemia, and severe peripheral vascular disease, status post IR erasto scularization, whose post-procedure course was complicated by chronic and nonhealing foot ulcers and dry gangrene, who is now status post right transmetatarsal amputation postop day #2. PLAN: 1. Severe peripheral vascular disease, status post IR revascularization, status post right TMA posto p day #2. Continue with postoperative care, as per Dr. Menezes and the podiatric team. The patient is status post removal of wound drain and is doing well. Continue with Lipitor 20 mg p.o. daily and Eliquis 5 mg p.o. b.i.d. 2. Insulin-dependent diabetes mellitus. Continue with Levemir 45 units subcutaneously b.i.d., Humal og 10 units subcutaneously t.i.d. with meals and metformin 1000 mg p.o. b.i.d. Continue to monitor f ingersticks q. a.c. and at bedtime. 3. Hypertension. Continue with lisinopril 40 mg p.o. daily and amlodipine 10 mg p.o. daily. 4. Anxiety disorder. Continue with Xanax 0.5 mg p.o. b.i.d. 5. Hyperlipidemia. Continue with Lipitor 20 mg p.o. daily. 6. Prophylaxis. GI prophylaxis not indicated, as the patient is eating. The patient remains on Marla sara for his peripheral vascular disease, thus, DVT prophylaxis is not indicated. CODE STATUS: Full code. Rojelio Garzon MD cc: [id number] TT: 09/14/2016 09:13:03 Confirmation # [id number] Dictation # [id number] jn
[2016-09-14 09:16] LABS: ADD MANUAL DIFF? NO
[2016-09-14 09:21] LABS: BASO # 0.03 K/mm3 (0.0-2.0); BASO % 0.2 % (0.0-3.0); EOS # 0.2 (0.0-0.7); EOS % 1.6 % (1.5-5.0); GRAN # 9.13 (1.4-6.5); GRAN % 68.2 % (50.0-68.0); HEMATOCRIT 31.3 % (42.0-52.0); LYMPH # 2.6 (1.2-3.4); LYMPH % 19.3 % (22.0-35.0); MEAN CELL VOLUME 87.2 fL (80.0-105.0); MEAN CORPUSCULAR HEMOGLOBIN 29.5 pg (25.0-35.0); MEAN CORPUSCULAR HGB CONC 33.9 g/dl (31.0-37.0); MEAN PLATELET VOLUME 10.6 fl (7.0-11.0); MONO # 1.4 (0.1-0.6); MONO % 10.7 % (1.0-6.0); PLATELET COUNT 255 10^3/uL (120.0-450.0); RED CELL DISTRIBUTION WIDTH 13.1 % (11.5-14.5); WHITE BLOOD COUNT 13.4 10^3/ul (4.5-11.0)
--- NOTE | 2016-09-14 09:22 | CP.PCM.PN ---
Subjective - Date & Time of Evaluation Date of Evaluation: 09/14/16 Time of Evaluation: 08:30 - Subjective Subjective: 56 y/o male patient 2 days s/p Right foot TMA was seen at bedside with attending Dr. Menezes. Patient is resting comfortably in bed with no acute overnight distress. AAO x3. Dressing to Right lower extremity and the sandra drain remains clean dry and intact. Patient denies of any pain to surgical site today. Patient denies any pedal complaints, denies n/f/v/c/d/sob. Objective - Vital Signs/Intake and Output Vital Signs (last 24 hours): Temp Pulse Resp BP Pulse Ox 98.4 F 101 H 20 131/79 97 09/14/16 08:21 09/14/16 08:21 09/14/16 08:21 09/14/16 08:21 09/14/16 08:21 Intake and Output: 09/14/16 09/14/16 06:59 18:59 Intake Total 420 Output Total 500 Balance -80 - Medications Medications: Current Medications Acetaminophen (Tylenol 325mg Tab) 650 mg PO Q4H PRN PRN Reason: Pain, Mild (1-3) Last Admin: 09/13/16 17:05 Dose: 650 mg Alprazolam (Xanax) 0.5 mg PO HS PRN; Protocol PRN Reason: Anxiety Last Admin: 09/13/16 22:13 Dose: 0.5 mg Amlodipine Besylate (Norvasc) 10 mg PO DAILY [facility] Last Admin: 09/13/16 10:35 Dose: 10 mg Apixaban (Eliquis) 5 mg PO BID [facility] PRN Reason: Protocol Last Admin: 09/13/16 17:01 Dose: 5 mg Atorvastatin Calcium (Lipitor) 20 mg PO DIN [facility] Last Admin: 09/13/16 17:01 Dose: 20 mg Docusate Sodium (Colace) 100 mg PO BID [facility] Last Admin: 09/13/16 17:01 Dose: 100 mg Insulin Detemir (Levemir) 45 unit SC Q12H [facility] Last Admin: 09/13/16 23:52 Dose: 45 unit Insulin Human Lispro (Humalog Med) 0 units SC ACHS [facility] PRN Reason: Protocol Last Admin: 09/14/16 08:27 Dose: 1 units Insulin Human Lispro (Humalog) 10 units SC AC [facility] Last Admin: 09/14/16 08:29 Dose: 10 units Lisinopril (Zestril) 40 mg PO ACB [facility] Last Admin: 09/14/16 08:29 Dose: 40 mg Metformin HCl (Glucophage) 1,000 mg PO BID [facility] Last Admin: 09/13/16 17:01 Dose: 1,000 mg Oxycodone/Acetaminophen (Percocet 5/325 Mg Tab) 1 tab PO Q4H PRN PRN Reason: Pain, moderate (4-7) Stop: 09/15/16 18:25 Oxycodone/Acetaminophen (Percocet 5/325 Mg Tab) 2 tab PO Q4H PRN PRN Reason: Pain, severe (8-10) Stop: 09/15/16 18:25 Last Admin: 09/12/16 23:57 Dose: 2 tab - Labs Labs: 09/13/16 06:45 09/13/16 06:45 - Constitutional Appears: Well, Non-toxic, No Acute Distress - Extremities Exam Additional comments: Right lower extremity exam DERM: Incision site remains well coapted with all sutures intact. No wound dehiscence is noted. Penfield drain remains intact with collection of 15mL. No erythema is noted around the surgical site. No sign of acute infection is noted. VASC: Palpable DP and PT noted to be 1/4 bilaterally. PLANT EQUIPMENT ENGINEER less than 3 seconds to all digits ORTHO: no pain is induced to the right foot surgical site NEURO: Gross sensation intact - Neurological Exam Neurological Exam: Alert, Awake, Oriented x3 - Psychiatric Exam Psychiatric exam: Normal Affect, Normal Mood - Skin Skin Exam: Normal Color, Warm Assessment and Plan - Assessment and Plan (Free Text) Assessment: 56 year old male patient presents 2 days s/p Right foot Trans-Metatarsal Amputation Plan: Patient was seen, evaluated and treated with all questions and concerns addressed Rounded with Dr. Menezes present labs and vitals reviewed Sandra drain was pulled out from the right foot at bedside without any complication. Right foot was cleansed with saline socked gauze. Right foot dressed with adaptic and DSD Darco wedge shoe was ordered and waiting arrival Patient can start weight bearing to right foot only when the Darco forefoot wedge shoe arrives and applied to his right foot Podiatry will continue to follow in-house
[2016-09-14 09:29] LABS: ALB/GLOB RATIO 1.2 (1.1-1.8); ALKALINE PHOSPHATASE 72 U/L (38-133); ALT/SGPT 48 U/L (7-56); AST/SGOT 20 U/L (15-59); BILIRUBIN,TOTAL 0.7 mg/dL (0.2-1.3); BLOOD UREA NITROGEN 19 mg/dL (7-21); CARBON DIOXIDE 26 mmol/L (21-33); CHLORIDE 102 mmol/L (98-107); GFR AFRICAN-AMERICAN > 60; GLUCOSE,RANDOM 206 mg/dL (70-110); POTASSIUM 4.5 mmol/L (3.6-5.0); SODIUM 138 mmol/L (132-148); TOTAL PROTEIN 7.2 g/dL (5.8-8.3)
[2016-09-14] MEDS: Insulin Detemir 100 units/ml Vial (Levemir) SC SCH ×2 (10:43→23:23)
[2016-09-14] MEDS: Oxycodone/Acetaminophen 5/325 mg Tab PO PRN (17:47)
[2016-09-15 07:07] LABS: ADD MANUAL DIFF? NO
[2016-09-15 07:18] LABS: BASO # 0.03 K/mm3 (0.0-2.0); BASO % 0.2 % (0.0-3.0); EOS # 0.3 (0.0-0.7); EOS % 2.7 % (1.5-5.0); GRAN # 7.62 (1.4-6.5); GRAN % 63.2 % (50.0-68.0); HEMATOCRIT 29.9 % (42.0-52.0); LYMPH # 2.8 (1.2-3.4); LYMPH % 23.4 % (22.0-35.0); MEAN CELL VOLUME 87.4 fL (80.0-105.0); MEAN CORPUSCULAR HEMOGLOBIN 29.8 pg (25.0-35.0); MEAN CORPUSCULAR HGB CONC 34.1 g/dl (31.0-37.0); MEAN PLATELET VOLUME 10.6 fl (7.0-11.0); MONO # 1.3 (0.1-0.6); MONO % 10.5 % (1.0-6.0); PLATELET COUNT 234 10^3/uL (120.0-450.0); RED CELL DISTRIBUTION WIDTH 13.2 % (11.5-14.5); WHITE BLOOD COUNT 12.1 10^3/ul (4.5-11.0)
[2016-09-15 07:42] LABS: ALB/GLOB RATIO 1.2 (1.1-1.8); ALKALINE PHOSPHATASE 68 U/L (38-133); ALT/SGPT 43 U/L (7-56); AST/SGOT 20 U/L (15-59); BILIRUBIN,TOTAL 0.6 mg/dL (0.2-1.3); BLOOD UREA NITROGEN 20 mg/dL (7-21); CARBON DIOXIDE 28 mmol/L (21-33); CHLORIDE 102 mmol/L (98-107); GFR AFRICAN-AMERICAN > 60; GLUCOSE,RANDOM 158 mg/dL (70-110); POTASSIUM 4.7 mmol/L (3.6-5.0); SODIUM 137 mmol/L (132-148)
[2016-09-15] MEDS: Insulin Lispro 1 UNITS/0.01 ML SC SCH ×3 (08:05→17:12)
[2016-09-15] MEDS: Insulin Lispro (humaLOG) MEDIUM Coverage SC SCH ×4 (08:05→21:36)
--- NOTE | 2016-09-15 09:16 | PN ---
DATE: 09/15/2016 SUBJECTIVE: The patient seen and examined at bedside on the general medical velez. No acute events overnight. He remains afebrile and hemodynamically stable. This morning, the patient states he feels well and is anticipating transfer to the TCU for continued physical therapy, and otherwise offers no complaints. OBJECTIVE: VITAL SIGNS: Temperature 98.7, pulse 98, blood pressure 132/85, respiratory rate 20, oxygen saturation 96% on room air. GENERAL: No apparent distress. HEENT: PERRLA, EOMI. No scleral icterus. No conjunctival pallor. NECK: No JVD, no bruits. LUNGS: Clear to auscultation. CARDIOVASCULAR: Regular rate and rhythm. Normal S1 and S2. ABDOMEN: Obese, normoactive bowel sounds, soft, nontender, nondistended. EXTREMITIES: No edema. Right foot with Anjel wrapping in place. NEUROLOGIC: Awake, alert and oriented x 3. No focal motor deficits. LABORATORY DATA: WBC 12 with 63% neutrophils, hemoglobin 10, hematocrit 30, platelets 234. Chemistry reviewed and unremarkable. ASSESSMENT: The patient is a 56-year-old man with past medical history of insulin-dependent diabetes mellitus, hypertension, hyperlipidemia and severe peripheral vascular disease, status post interventional radiology revascularization, whose postprocedure course was complicated by chronic and nonhealing foot ulcers and dry gangrene, who is status post right transmetatarsal amputation postoperative day #3. PLAN: 1. Severe peripheral vascular disease, s/p IR revascularization, s/p right TMA , postoperative day #3. Continue with care as per Dr. Menezes of the podiatric team. Continue with Lipitor 20 mg p.o. daily and Eliquis 5 mg p.o. b.i.d. 2. Insulin-dependent diabetes mellitus. Continue with Levemir 45 units SC b.i.d., Humalog 10 units SC t.i.d. with meals and metformin 1000 mg p.o. b.i.d. Continue to monitor fingersticks q.a.c. and at bedtime. 3. Hypertension. Continue with lisinopril 40 mg p.o. daily and amlodipine 10 mg p.o. daily. 4. Anxiety disorder. Continue with Xanax 0.5 mg p.o. b.i.d. 5. Hyperlipidemia. Continue with Lipitor 20 mg p.o. daily. 6. Leukocytosis, etiology likely reactive in nature. No signs or symptoms of infection. Per my discussion with Dr. Menezes, the surgical site appears intact and demonstrates no signs of infection. Will continue to monitor. 7. Prophylaxis. GI prophylaxis not indicated as the patient is eating. The patient remains on Eliquis for his peripheral vascular disease, thus DVT prophylaxis not indicated. CODE STATUS: Full code. Rojelio Garzon MD cc: [id number] TT: 09/15/2016 09:16:28 Confirmation # [id number] Dictation # [id number] mn MTDD
[2016-09-15] MEDS: Insulin Detemir 100 units/ml Vial (Levemir) SC SCH ×2 (12:03→23:01)
[2016-09-15] MEDS: Oxycodone/Acetaminophen 5/325 mg Tab PO PRN (13:20)
[2016-09-15] MEDS ORDERED: TRULICITY 1.5 MG/0.5 ML SC SCH (18:11)
[2016-09-16 07:39] LABS: ADD MANUAL DIFF? NO
[2016-09-16 07:48] LABS: BASO # 0.03 K/mm3 (0.0-2.0); BASO % 0.3 % (0.0-3.0); EOS # 0.4 (0.0-0.7); EOS % 3.6 % (1.5-5.0); GRAN # 7.36 (1.4-6.5); GRAN % 66.2 % (50.0-68.0); HEMATOCRIT 30.1 % (42.0-52.0); LYMPH # 2.3 (1.2-3.4); LYMPH % 20.5 % (22.0-35.0); MEAN CELL VOLUME 86.7 fL (80.0-105.0); MEAN CORPUSCULAR HEMOGLOBIN 29.7 pg (25.0-35.0); MEAN CORPUSCULAR HGB CONC 34.2 g/dl (31.0-37.0); MEAN PLATELET VOLUME 10.5 fl (7.0-11.0); MONO % 9.4 % (1.0-6.0); PLATELET COUNT 242 10^3/uL (120.0-450.0); RED CELL DISTRIBUTION WIDTH 13.1 % (11.5-14.5); WHITE BLOOD COUNT 11.1 10^3/ul (4.5-11.0)
[2016-09-16] MEDS: Insulin Lispro 1 UNITS/0.01 ML SC SCH ×3 (07:49→17:11)
[2016-09-16] MEDS: Insulin Lispro (humaLOG) MEDIUM Coverage SC SCH ×4 (07:49→22:31)
[2016-09-16 07:51] VITALS: RESP 20
[2016-09-16 08:12] LABS: ALB/GLOB RATIO 1.1 (1.1-1.8); ALKALINE PHOSPHATASE 64 U/L (38-133); ALT/SGPT 40 U/L (7-56); AST/SGOT 19 U/L (15-59); BILIRUBIN,TOTAL 0.6 mg/dL (0.2-1.3); BLOOD UREA NITROGEN 19 mg/dL (7-21); CARBON DIOXIDE 27 mmol/L (21-33); CHLORIDE 103 mmol/L (98-107); GFR AFRICAN-AMERICAN > 60; GLUCOSE,RANDOM 144 mg/dL (70-110); POTASSIUM 4.6 mmol/L (3.6-5.0); SODIUM 138 mmol/L (132-148)
[2016-09-16] MEDS: Insulin Detemir 100 units/ml Vial (Levemir) SC SCH ×2 (11:37→22:33)
[2016-09-16 17:14] VITALS: O2SAT 98
--- NOTE | 2016-09-16 21:00 | PN ---
DATE: 09/16/2016 The patient is in room 566, bed 2. The patient currently has no complaints. His foot is improving. There have been no acute events ove rnight. REVIEW OF SYSTEMS: Is entirely unremarkable. PHYSICAL EXAMINATION: VITAL SIGNS: Temperature of 98.3, pulse rate of 95, blood pressure of 134/86, respiratory rate of 97 on room air. HEENT: Unremarkable. NECK: Supple with a full range of motion. There are no bruits present. LUNGS: Clear bilaterally. HEART: Regular rate and rhythm. No murmurs, rubs, or gallops. ABDOMEN: Benign. NEUROLOGIC: The patient is intact. EXTREMITIES: The right foot is in an Unna boot. LABORATORY DATA: WBCs are 11.1, which is down from 12.1. Hemoglobin and hematocrit are 10.3 and 30. 1 and holding steady. Chemistry is entirely unremarkable with a glucose of 144. According to the yarn carrier the patient was seen this morning and will most likely be discharged volodymyr rrow. CURRENT DIAGNOSES: 1. Peripheral vascular disease status post interventional radiology revascularization, status post r ight transmetatarsal amputation. 2. Insulin-dependent diabetes mellitus. 3. Hypertension. 4. Anxiety disorder. 5. Hyperlipidemia. Will continue current regimen, and the patient most likely will be discharged tomorrow. Deng Garzon MD cc: [id number] TT: 09/16/2016 20:59:39 Confirmation # [id number] Dictation # [id number] vonnie
[2016-09-17] MEDS: Insulin Detemir 100 units/ml Vial (Levemir) SC SCH (05:24)
[2016-09-17 07:31] LABS: ADD MANUAL DIFF? NO
[2016-09-17 07:40] LABS: BASO # 0.05 K/mm3 (0.0-2.0); BASO % 0.5 % (0.0-3.0); EOS # 0.4 (0.0-0.7); EOS % 3.3 % (1.5-5.0); GRAN # 6.39 (1.4-6.5); GRAN % 59.6 % (50.0-68.0); HEMATOCRIT 29.1 % (42.0-52.0); LYMPH % 28.1 % (22.0-35.0); MEAN CELL VOLUME 87.4 fL (80.0-105.0); MEAN CORPUSCULAR HEMOGLOBIN 29.4 pg (25.0-35.0); MEAN CORPUSCULAR HGB CONC 33.7 g/dl (31.0-37.0); MEAN PLATELET VOLUME 10.6 fl (7.0-11.0); MONO # 0.9 (0.1-0.6); MONO % 8.5 % (1.0-6.0); PLATELET COUNT 262 10^3/uL (120.0-450.0); WHITE BLOOD COUNT 10.7 10^3/ul (4.5-11.0)
[2016-09-17 07:45] LABS: ALB/GLOB RATIO 1.1 (1.1-1.8); ALKALINE PHOSPHATASE 74 U/L (38-133); ALT/SGPT 41 U/L (7-56); AST/SGOT 19 U/L (15-59); BILIRUBIN,TOTAL 0.6 mg/dL (0.2-1.3); BLOOD UREA NITROGEN 23 mg/dL (7-21); CARBON DIOXIDE 26 mmol/L (21-33); CHLORIDE 104 mmol/L (98-107); GFR AFRICAN-AMERICAN > 60; GLUCOSE,RANDOM 121 mg/dL (70-110); POTASSIUM 4.4 mmol/L (3.6-5.0); SODIUM 137 mmol/L (132-148)
[2016-09-17 08:00] VITALS: BP 125/82; PULSE 103; TEMP 98.3
[2016-09-17] MEDS: Insulin Lispro (humaLOG) MEDIUM Coverage SC SCH (08:07)
[2016-09-17] MEDS: Insulin Lispro 1 UNITS/0.01 ML SC SCH (08:25)
--- NOTE | 2016-09-17 09:26 | PN ---
DATE: 09/17/2016 SUBJECTIVE: The patient seen and examined at bedside on the general medical velez. No acute events o vernight. He remains afebrile and hemodynamically stable. The patient has been evaluated by Dr. Sandip cuenca and the right foot TMA surgical site is healing nicely. There are no signs or symptoms of infect ion and per podiatry, the patient is cleared for discharge to home. The patient states he feels well , is able to ambulate with the boot and denies any complaints. OBJECTIVE: VITAL SIGNS: Temperature 98.3, pulse 95, blood pressure 125/82, respiratory rate 20, oxygen saturati on 98% on room air. GENERAL: No apparent distress. HEENT: PERRL, EOMI. No scleral icterus. No conjunctival pallor. NECK: No JVD, no bruits. LUNGS: Clear to auscultation. CARDIOVASCULAR: Regular rate and rhythm, normal S1 and S2. ABDOMEN: Obese, normoactive bowel sounds, soft, nontender, nondistended. EXTREMITIES: No edema. Right foot with Anjel wrapping in place and boot in place. NEUROLOGIC: Awake, alert and oriented x 3. No focal motor deficits. LABORATORY DATA: WBC 10.7 with 60% neutrophils, hemoglobin 9.8, hematocrit 29, platelets 262. Chemi stry reviewed and unremarkable. ASSESSMENT: The patient is a 56-year-old man with past medical history of insulin-dependent diabetes mellitus, hypertension, hyperlipidemia and severe peripheral vascular disease, status post intervent ional radiology revascularization whose post-procedure course was complicated by chronic and nonheali ng foot ulcers and dry gangrene, who is now status post right transmetatarsal amputation, postoperati ve day #5. PLAN 1. Severe PVD, status post IR revascularization, status post right TMA, postop day #5. Input from Ray Carballo and Dr. Menezes of the podiatric team noted and appreciated. Continue with post-procedure care as per the podiatric team. Per discussion with them, the patient is cleared for discharge. Con tinue with Lipitor 20 mg p.o. daily and Eliquis 5 mg p.o. b.i.d. 2. Insulin-dependent diabetes mellitus. Continue with Levemir 45 units SC b.i.d., Humalog 10 units SC t.i.d. with meals and metformin 1000 mg p.o. b.i.d. Continue to monitor fingersticks q. a.c. and at bedtime. 3. Hypertension. Continue with lisinopril 40 mg p.o. daily and amlodipine 10 mg p.o. daily. 4. Anxiety disorder. Continue with Xanax 0.5 mg p.o. b.i.d. 5. Hyperlipidemia. Continue with Lipitor 20 mg p.o. daily. 6. Leukocytosis, etiology, likely reactive in nature/stress response. No signs or symptoms of infec tion and labs demonstrate favorably trending WBC count. 7. Prophylaxis. GI prophylaxis not indicated as patient is eating. The patient remains on Eliquis for his peripheral vascular disease; thus, DVT prophylaxis not indicated. 8. Disposition: The patient for discharge to home today. CODE STATUS: Full code. Rojelio Garzon MD cc: [id number] TT: 09/17/2016 09:25:38 Confirmation # [id number] Dictation # [id number] tn
--- NOTE | 2016-09-19 09:46 | PQF DM ---
09/19/16 Dr. Balwinder Garzon, Patient is IDDM and severe peripheral vascular disease. Is the peripheral vascular disease due to the diabetes? Thank you. Yes it is related to his underlying IDDM Clarification of your documentation is requested to better reflect the severity of illness and intensity of treatment of your patient. Indicators present: [X] Documented diagnosis of Diabetes [X] Documented condition___peripheral vascular disease [] A1C results [] Diabetic medications [] Elevated blood glucose [] Nutritional consults [] ADA diet [] Other: [] Location in the medical record that reflects the above clinical findings:[] Treatment Provided: PHYSICIAN'S RESPONSE Based on your medical judgment of the clinical indicators outlined above, are you treating this patient for a known or suspected: [] Diabetes Mellitus, Type I [] Controlled [] Uncontrolled [X] Diabetes Mellitus, Type II [] Controlled [X] Uncontrolled [] Diabetes, Steroid induced [] Controlled [] Uncontrolled [] Diabetic conditions/complications [] Other, please indicate [] [] If Unable to Determine, please check the box, sign and date. Present On Admission (POA) Indicator: [X] Present at the time of admission [] Not present at the time of admission [] Clinically Undetermined In responding to this query, please exercise your independent professional judgment. The fact that a question is asked does not imply that any particular answer is desired or expected. Thank you for your clarification on this documentation. If you have any questions please call:[ ] * Thank you, [ ] shipping clerk packing KELSIE
--- NOTE | 2016-09-21 15:34 | DS ---
ADMITTING DIAGNOSIS: Severe peripheral vascular disease with chronic right foot ulcerations and dry gangrene. DISCHARGE DIAGNOSIS: Severe peripheral vascular disease of the right foot, status post right transme tatarsal amputation. SECONDARY DIAGNOSES: Insulin-dependent diabetes mellitus, hypertension, anxiety disorder, and hyperl ipidemia. CONSULTATIONS: Dr. Menezes (podiatry). PROCEDURES: Right transmetatarsal amputation. HISTORY OF PRESENT ILLNESS: The patient is a 56-year-old man with past medical history of insulin-de pendent diabetes mellitus, hypertension, hyperlipidemia and severe peripheral vascular disease status post acute thrombosis of the right popliteal artery and right anterior tibial artery, status post en dovascular recannulization with reperfusion, whose post-procedure course was complicated by significa nt re-thrombosis and ischemic injury of his right lower extremity with chronic nonhealing ulcerations and dry gangrene, who presented to [facility] for electively scheduled TMA with Dr. Jean tamez. The patient underwent successful TMA of his right lower extremity with Dr. Menezes and was subs equently transferred to the general medical velez for continued management of his wound drain and cont inued postoperative care. HOSPITAL COURSE: Upon admission to the general medical velez, the patient was closely followed by Dr. Menezes and the podiatric team. Within 24 hours of surgery, his wound drain was successfully remove d. The patient was noted to have satisfactory progress in terms of his surgical site. There was no evidence of infection to the surgical site and his post-procedure course was largely uncomplicated. Arrangements were made to fit the patient for a boot and to be evaluated by physical therapy for gait training and balance. The patient's hospital stay was uncomplicated and he was noted to ambulate ar ound the medical velez without difficulty and by hospital day #4, he was deemed stable for discharge t o home. CONDITION: Good, improved. DISPOSITION: To home. DISCHARGE MEDICATIONS: Levemir 90 units SC at bedtime, Humalog 10 units SC t.i.d. with meals, Lipito r 20 mg p.o. daily, amlodipine 10 mg p.o. daily, lisinopril 40 mg p.o. daily, Xanax 0.5 mg p.o. b.i.d ., metformin 1000 mg p.o. b.i.d. and Eliquis 5 mg p.o. b.i.d. DISCHARGE INSTRUCTIONS: The patient was advised that if he has any development of erythema, purulent discharge or pain at his surgical site, to present to his PMD or to Dr. Menezes or to the nearest Em ergency Department immediately. The patient was also advised to adhere to postsurgical instructions as per Dr. Menezes and the podiatric team. FOLLOWUP: The patient to follow up with his PMD within 1 week of discharge. The patient to follow u p with Dr. Menezes as scheduled. Rojelio Garzon MD cc: [id number] TT: 09/21/2016 15:33:55 sn
== END 2016-09-17 09:15 | disposition home or self-care (01) | DRG 240 ==
LOC: SDS 11:58 → 5RNO 19:17 → SDS 09-13 09:00 → OBSVTOIN 09-15 13:44 → 5RNO 09-16 17:33
PROVIDERS: ADMIT Internal Medicine; ATTEND Student in an Organized Health Care Education/Training Program
PROC: 0Y6M0ZD Detachment at Right Foot, Partial 4th Ray, Open Approach (ICD-10-PCS; 2016-09-12)
PROC: 0Y6M0ZF Detachment at Right Foot, Partial 5th Ray, Open Approach (ICD-10-PCS; 2016-09-12)
PROC: 0Y6M0Z9 Detachment at Right Foot, Partial 1st Ray, Open Approach (ICD-10-PCS; principal; 2016-09-12 16:00)
DX: E11.52 Type 2 diabetes mellitus with diabetic peripheral angiopathy with gangrene (principal); E11.621 Type 2 diabetes mellitus with foot ulcer; I10 Essential (primary) hypertension; L97.509 Non-pressure chronic ulcer of other part of unspecified foot with unspecified severity; E78.5 Hyperlipidemia, unspecified; Z79.4 Long term (current) use of insulin; Z82.49 Family history of ischemic heart disease and other diseases of the circulatory system; Z83.3 Family history of diabetes mellitus; Z86.718 Personal history of other venous thrombosis and embolism; Z89.421 Acquired absence of other right toe(s); Z88.1 Allergy status to other antibiotic agents; Z88.0 Allergy status to penicillin; Z88.8 Allergy status to other drugs, medicaments and biological substances; F41.9 Anxiety disorder, unspecified; I70.25 Atherosclerosis of native arteries of other extremities with ulceration

== ENCOUNTER 2016-09-26 08:49 | Inpatient (IN) | payer MEDICARE, OTHER ==
[2016-09-26 09:00] VITALS: BMI 38.8
[2016-09-26 09:01] VITALS: TEMP 98
[2016-09-26] MEDS ORDERED: Aztreonam 1 Gm in NS 100mL 100 ML IVPB STA (09:47)
--- NOTE | 2016-09-26 09:54 | ED PDOC ---
Arrival/HPI - General Historian: Patient - General Chief Complaint: Lower Extremity Problem/Injury Time Seen by Provider: 09/26/16 09:06 - History of Present Illness Narrative History of Present Illness (Text): 09/26/16 09:50 56-year-old diabetic male presents today sent down from the wound center for an infected right foot surgical wound. Patient is status post partial amputation of the right foot now complaining of redness and fell smell coming from the wound. Denies fevers or chills. Denies pain. Patient states he was seen upstairs in the wound center and was sent down for admission for IV antibiotics. (Delilah Khan) Past Medical History - Provider Review Nursing Documentation Reviewed: Yes - Travel History Have you recently traveled outside [place] w/in the past 3 mons?: No - Tetanus Immunization Tetanus Immunization: Unknown - Cardiac Hx Cardiac Disorders: Yes Hx Hypertension: Yes - Pulmonary Hx Respiratory Disorders: No - Neurological Hx Neurological Disorder: No - HEENT Hx HEENT Disorder: No Hx Blind: No - Renal Hx Renal Disorder: Yes (STAGE1) - Endocrine/Metabolic Hx Endocrine Disorders: Yes Hx Diabetes Mellitus Type 1: Yes - Hematological/Oncological Hx Blood Disorders: No - Integumentary Hx Dermatological Disorder: Yes (AMPUTATIONS OF 2ND AND 3RD TOES.P BUNIONECTOMY JOHN FOOT RIGHT) - Musculoskeletal/Rheumatological Hx Musculoskeletal Disorders: Yes Hx Falls: No - Gastrointestinal Hx Gastrointestinal Disorders: No - Genitourinary/Gynecological Hx Genitourinary Disorders: No - Psychiatric Hx Psychophysiologic Disorder: No Hx Emotional Abuse: No Hx Physical Abuse: No Hx Substance Use: No - Surgical History Hx Amputation: Yes Hx Orthopedic Surgery: Yes Other/Comment: Right foot transmetatarsal amputation 09/12/16 - Anesthesia Hx Anesthesia Reactions: No Hx Malignant Hyperthermia: No - Suicidal Assessment Feels Threatened In Home Enviroment: No Family/Social History - Physician Review Nursing Documentation Reviewed: Yes Family/Social History: Unknown Family HX Smoking Status: Never Smoked Hx Alcohol Use: No Hx Substance Use: No Allergies/Home Meds Allergies/Adverse Reactions: Allergies heparin Allergy (Verified 09/26/16 09:00) ANGIOEDEMA Penicillins Allergy (Verified 09/26/16 09:00) RASH tetracycline HCl [From Achromycin] Allergy (Verified 09/26/16 09:00) RASH Home Medications: Home Meds Medication Instructions Recorded Confirmed Metformin HCl 1,000 mg PO BID 05/07/12 09/26/16 Alprazolam [Xanax] 0.5 mg PO HS PRN 04/04/16 09/26/16 Apixaban [Eliquis] 5 mg PO BID 04/04/16 09/26/16 Diclofenac 75 mg PO BID 04/04/16 09/26/16 Docusate [Colace] 100 mg PO BID 04/04/16 09/26/16 Dulaglutide [Trulicity] 1.5 mg SC QWK 04/04/16 09/26/16 Insulin Glargine, Recombina 90 unit SC HS 04/04/16 09/26/16 [Lantus] Levocetirizine Dihydrochloride 5 mg PO DAILY 04/04/16 09/26/16 [Xyzal] Lisinopril [Zestril] 40 mg PO ACB 04/04/16 09/26/16 amLODIPine [Norvasc] 10 mg PO DAILY 04/04/16 09/26/16 Atorvastatin Calcium 20 mg PO DAILY 08/29/16 09/26/16 Insulin Lispro [Humalog (Insulin 10 unit SQ ACTID 08/29/16 09/26/16 Lispro)] Review of Systems - Review of Systems Constitutional: absent: Fatigue, Fevers Respiratory: absent: SOB, Cough Cardiovascular: absent: Chest Pain, Palpitations Gastrointestinal: absent: Abdominal Pain Genitourinary Male: absent: Dysuria Musculoskeletal: absent: Arthralgias Skin: Other (wound infection) Neurological: absent: Headache, Dizziness Physical Exam Vital Signs Reviewed: Yes Temperature: Afebrile Blood Pressure: Hypertensive Pulse: Tachycardic Respiratory Rate: Normal Appearance: Positive for: Well-Appearing, Non-Toxic, Comfortable Pain Distress: None Mental Status: Positive for: Alert and Oriented X 3 - Systems Exam Head: Present: Atraumatic Mouth: Present: Moist Mucous Membranes Neck: Present: Normal Range of Motion Respiratory/Chest: Present: Clear to Auscultation Cardiovascular: Present: Regular Rate and Rhythm Lower Extremity: Present: NORMAL PULSES, Swelling, Erythema, Neurovascularly Intact, Capillary Refill < 2 s, Other (right foot; there is slight swelling and erythema noted to the surgical amputation site of the foot; no calf tenderness; erythema does not extend proximally. lakhwinder in place ). No: CALF TENDERNESS, Tenderness Neurological: Present: GCS=15, Speech Normal Skin: Present: Warm, Dry Psychiatric: Present: Alert, Oriented x 3 Vital Signs Temp Pulse Resp BP Pulse Ox 09/26/16 09:01 98 F 103 H 16 163/86 H 99 Medical Decision Making ED Course and Treatment: 09/26/16 09:54 56yr old male with infection right partial foot amputation. pt with rx from dr. kay requesting ID consult. pt with wound culture that grew out e.coli; sensitive to aztreonam. cbc; wbc;10.3 cmp; bun; 25 blood cultures pending case discussed with covering for dr. vazquez. will start patient on aztreonam. case discussed with dr. garzon; will admit to med/surg. impression; foot infection, surgical wound infection admit to med/surg. (Delilah Khan) I was available for consultation during PA evaluation. The chart was reviewed by me, and I agree with disposition. The documented history was done by the physician customer service supervisor. The documented physical exam was done by the physician customer service supervisor. The documented procedures were done by the physician customer service supervisor. (Frederick Briscoe) - Lab Interpretations Lab Results: 09/26/16 09:45 09/26/16 09:45 Lab Results 09/26/16 09:45: WBC 10.3, RBC 3.84, Hgb 11.3 L, Hct 33.4 L, MCV 87.0, MCH 29.4, MCHC 33.8, RDW 13.0, Plt Count 240, MPV 10.6, Gran % 66.5, Lymph % (Auto) 23.6, [place] % (Auto) 7.5 H, Eos % (Auto) 2.2, Baso % (Auto) 0.2, Gran # 6.87 H, Lymph # 2.4, [place] # 0.8 H, Eos # 0.2, Baso # 0.02, Sodium 138, Potassium 4.4, Chloride 104, Carbon Dioxide 25, Anion Gap 13, BUN 25 H, Creatinine 1.1, Est GFR ( Amer) > 60, Est GFR (Non-Af Amer) > 60, Random Glucose 117 H, Calcium 9.8, Total Bilirubin 0.5, AST 31, ALT 47, Alkaline Phosphatase 91, Total Protein 7.9, Albumin 4.2, Globulin 3.7, Albumin/Globulin Ratio 1.1 - Medication Orders Current Medication Orders: Aztreonam (Azactam 1 Gm) 100 mls @ 100 mls/hr IVPB STAT STA PRN Reason: Protocol Stop: 09/26/16 10:46 Sodium Chloride (Sodium Chloride 0.9%) 1,000 mls @ 100 mls/hr IV .Q10H MEEK Disposition/Present on Arrival - Present on Arrival Any Indicators Present on Arrival: No History of DVT/PE: No History of Uncontrolled Diabetes: No Urinary Catheter: No History of Decub. Ulcer: No History Surgical Site Infection Following: None - Disposition Have Diagnosis and Disposition been Completed?: Yes Disposition Time: 09:50 Patient Plan: Admission - Disposition Diagnosis: Surgical wound infection, Foot infection Disposition: HOSPITALIZED Patient Problems: Current Active Problems Problem Status Diagnosed Bronchitis Acute COPD exacerbation Acute Foot infection Acute Surgical wound infection Acute Condition: FAIR Referrals: Deng Garzon MD [Primary Care Provider] - Follow up with primary
[2016-09-26 10:04] LABS: ADD MANUAL DIFF? NO
[2016-09-26 10:20] LABS: BASO # 0.02 K/mm3 (0.0-2.0); BASO % 0.2 % (0.0-3.0); EOS # 0.2 (0.0-0.7); EOS % 2.2 % (1.5-5.0); GRAN # 6.87 (1.4-6.5); GRAN % 66.5 % (50.0-68.0); HEMATOCRIT 33.4 % (42.0-52.0); LYMPH # 2.4 (1.2-3.4); LYMPH % 23.6 % (22.0-35.0); MEAN CORPUSCULAR HEMOGLOBIN 29.4 pg (25.0-35.0); MEAN CORPUSCULAR HGB CONC 33.8 g/dl (31.0-37.0); MEAN PLATELET VOLUME 10.6 fl (7.0-11.0); MONO # 0.8 (0.1-0.6); MONO % 7.5 % (1.0-6.0); PLATELET COUNT 240 10^3/uL (120.0-450.0); WHITE BLOOD COUNT 10.3 10^3/ul (4.5-11.0)
[2016-09-26 10:24] LABS: ALB/GLOB RATIO 1.1 (1.1-1.8); ALKALINE PHOSPHATASE 91 U/L (38-133); ALT/SGPT 47 U/L (7-56); AST/SGOT 31 U/L (15-59); BILIRUBIN,TOTAL 0.5 mg/dL (0.2-1.3); BLOOD UREA NITROGEN 25 mg/dL (7-21); CALCIUM 9.8 mg/dL (8.4-10.5); CARBON DIOXIDE 25 mmol/L (21-33); CHLORIDE 104 mmol/L (98-107); GFR AFRICAN-AMERICAN > 60; GLUCOSE,RANDOM 117 mg/dL (70-110); POTASSIUM 4.4 mmol/L (3.6-5.0); SODIUM 138 mmol/L (132-148); TOTAL PROTEIN 7.9 g/dL (5.8-8.3)
[2016-09-26] MEDS ORDERED: Sodium Chloride 0.9% 1,000 ML IV SCH (10:30)
[2016-09-26] MEDS: Vancomycin 1gm in NS 250ml 250 ML IVPB SCH ×2 (12:01→22:06)
[2016-09-26] MEDS: metroNIDAZOLE IV 500 mg/100 ml 100 ML IVPB SCH ×2 (14:51→22:07)
[2016-09-26] MEDS: Insulin Lispro 1 UNITS/0.01 ML SC SCH ×3 (14:52→18:16)
--- NOTE | 2016-09-26 15:45 | HP ---
HISTORY OF PRESENT ILLNESS: The patient is a 56-year-old man with a past medical history of insulin-dependent diabetes mellitus, hypertension, hyperlipidemia and severe peripheral vascular disease, status post right TMA, who was recently discharged from [facility] status post right TMA on 09/21/2016, who was referred to the Emergency Department by his day camp counselor ( Dr. Menezes) for concern of possible infection at the podiatric amputation site. The patient does report increased erythema and purulent discharge from the site, but otherwise denies any constitutional symptoms including fevers, chills, rigors or malaise. Upon arrival to the ED, he was noted to be afebrile and hemodynamically stable and initial laboratory studies were unremarkable with the exception of a markedly elevated ESR of 35. The patient was started on IV aztreonam and vancomycin and admitted to the general medical velez for continued management of surgical site infection. PAST MEDICAL HISTORY: As per HPI, also history of anxiety disorder. PAST SURGICAL HISTORY: As per HPI, also right knee arthroscopy, spinal surgery with fusion of L4-L5. ALLERGIES: PENICILLIN, TETRACYCLINE AND HEPARIN. MEDICATIONS: Levemir 90 units subQ at bedtime, Humalog 10 units subQ t.i.d. with meals, Lipitor 20 mg p.o. daily, amlodipine 10 mg p.o. daily, lisinopril 40 mg p.o. daily, Xanax 0.5 mg p.o. b.i.d., metformin 1000 mg p.o. b.i.d. and Eliquis 5 mg p.o. b.i.d. FAMILY HISTORY: Significant for hypertension and diabetes. SOCIAL HISTORY: The patient denies any toxic habits. REVIEW OF SYSTEMS: A 14-point is negative except as per HPI. PHYSICAL EXAMINATION: VITAL SIGNS: Temperature 98, pulse 100, blood pressure 144/86, respiratory rate 18, oxygen saturation 99% on room air. GENERAL: No apparent distress. HEENT: PERRL, EOMI, no scleral icterus, no conjunctival pallor. NECK: No JVD, no bruits. LUNGS: Clear to auscultation. CARDIOVASCULAR: Regular rate and rhythm. Normal S1 and S2. ABDOMEN: Obese, normoactive bowel sounds, soft, nontender, nondistended. EXTREMITIES: No edema. Right foot with erythema to the surgical site with minimal purulent discharge. NEUROLOGIC: Awake, alert and oriented x 3. No focal motor deficits. LABORATORY DATA: WBC 10 with 66% neutrophils, hemoglobin 11, hematocrit 33, platelets 240. Sodium 138, potassium 4.4, chloride 104, bicarb 25, BUN 25, creatinine 1.1, glucose 117. ASSESSMENT: The patient is a 56-year-old man with a past medical history of insulin-dependent diabetes mellitus, hypertension, hyperlipidemia and severe peripheral vascular disease, status post right transmetatarsal amputation, who is referred to the Emergency Department by his day camp counselor for evaluation of possible surgical site infection. PLAN: 1. Cellulitis to right transmetatarsal surgical site. Continue with local care as per Dr. Menezes and the podiatric team. Dr. Cote of infectious disease has been consulted for further evaluation and antimicrobial management. Continue to monitor for fever and leukocytosis. 2. Severe peripheral vascular disease, status post right transmetatarsal amputation. Continue with care as per #1. Continue with Lipitor 20 mg p.o. daily and Eliquis 5 mg p.o. b.i.d. 3. Insulin-dependent diabetes mellitus. Continue with Levemir 90 units subQ at bedtime, Humalog 10 units subQ t.i.d. with meals and metformin 1000 mg p.o. b.i.d. 4. Hypertension. Continue with lisinopril 40 mg p.o. daily and amlodipine 10 mg p.o. daily. 5. Anxiety disorder. Continue with Xanax 0.5 mg p.o. b.i.d. 6. Hyperlipidemia. Continue with Lipitor 20 mg p.o. daily. 7. Prophylaxis. Gastrointestinal prophylaxis is not indicated as patient is eating. The patient remains on Eliquis for his peripheral vascular disease, thus deep venous thrombosis is not indicated. CODE STATUS: Full code. Rojelio Garzon MD cc: [id number] TT: 09/26/2016 15:44:47 en MTDD
--- NOTE | 2016-09-26 16:13 | CP.PCM.CON ---
History of Present Illness - History of Present Illness History of Present Illness: 56 year old male with PMH of HTN, DM, S/P 2nd and 3rd toes on the right foot, S/ P transmetatarsal amputation on the right foot September 12 2016, obesity with BMI 39 was seen earlier in the wound center and was noted to have swelling of the surgical site and was sent for admission for treatment. The patient denies pus from the surgical site but has some foul smell from the area, no animal contacts , no wading in water, no swelling, no walking barefoot. He does admit to pain in the foot, but no fever or chills, no nausea or vomiting, no chest pain, no SOB, no headache or dizziness, no diarrhea, no dysuria. Infectious Diseases consult is requested to further evaluate and manage. Review of Systems - Review of Systems All systems: reviewed and no additional remarkable complaints except (as per HPI ) Past Patient History - Tetanus Immunizations Tetanus Immunization: Unknown - Past Social History Smoking Status: Never Smoked Alcohol: None Drugs: Denies Home Situation {Lives}: With Family - CARDIAC Hx Cardiac Disorders: Yes Hx Hypertension: Yes - PULMONARY Hx Respiratory Disorders: No - NEUROLOGICAL Hx Neurological Disorder: No - HEENT Hx HEENT Problems: No Hx Blind: No - RENAL Hx Chronic Kidney Disease: Yes (STAGE1) - ENDOCRINE/METABOLIC Hx Endocrine Disorders: Yes Hx Diabetes Mellitus Type 1: Yes - HEMATOLOGICAL/ONCOLOGICAL Hx Blood Disorders: No - INTEGUMENTARY Hx Dermatological Problems: Yes (AMPUTATIONS OF 2ND AND 3RD TOES.P BUNIONECTOMY JOHN FOOT RIGHT) - MUSCULOSKELETAL/RHEUMATOLOGICAL Hx Musculoskeletal Disorders: Yes Hx Falls: No - GASTROINTESTINAL Hx Gastrointestinal Disorders: No - GENITOURINARY/GYNECOLOGICAL Hx Genitourinary Disorders: No - PSYCHIATRIC Hx Psychophysiologic Disorder: No Hx Emotional Abuse: No Hx Physical Abuse: No Hx Substance Use: No - SURGICAL HISTORY Hx Amputation: Yes Hx Orthopedic Surgery: Yes Other/Comment: Right foot transmetatarsal amputation 09/12/16 - ANESTHESIA Hx Anesthesia Reactions: No Hx Malignant Hyperthermia: No Meds Allergies/Adverse Reactions: Allergies Allergy/AdvReac Type Severity Reaction Status Date / Time heparin Allergy ANGIOEDEMA Verified 09/26/16 09:00 Penicillins Allergy RASH Verified 09/26/16 09:00 tetracycline HCl Allergy RASH Verified 09/26/16 09:00 [From Achromycin] - Medications Medications: Current Medications Aztreonam (Azactam 1 Gm) 100 mls @ 100 mls/hr IVPB STAT STA PRN Reason: Protocol Stop: 09/26/16 10:46 Sodium Chloride (Sodium Chloride 0.9%) 1,000 mls @ 100 mls/hr IV .Q10H MEEK Physical Exam - Constitutional Appears: Non-toxic, No Acute Distress - Head Exam Head Exam: NORMAL INSPECTION - ENT Exam ENT Exam: Mucous Membranes Moist - Neck Exam Neck exam: Negative for: Lymphadenopathy, Meningismus - Respiratory Exam Respiratory Exam: Decreased Breath Sounds - Cardiovascular Exam Cardiovascular Exam: +S1, +S2 - GI/Abdominal Exam GI & Abdominal Exam: Soft. absent: Tenderness - Extremities Exam Additional comments: right foot with dry dressings in place Results - Vital Signs Recent Vital Signs: Last Vital Signs Temp 98 F 09/26/16 09:01 Pulse 103 H 09/26/16 09:01 Resp 16 09/26/16 09:01 BP 163/86 H 09/26/16 09:01 Pulse Ox 99 09/26/16 09:01 - Labs Result Diagrams: 09/26/16 09:45 09/26/16 09:45 Labs: Laboratory Results - last 24 hr 09/26/16 09:45 WBC 10.3 RBC 3.84 Hgb 11.3 L Hct 33.4 L MCV 87.0 MCH 29.4 MCHC 33.8 RDW 13.0 Plt Count 240 MPV 10.6 Gran % 66.5 Lymph % (Auto) 23.6 [place] % (Auto) 7.5 H Eos % (Auto) 2.2 Baso % (Auto) 0.2 Gran # 6.87 H Lymph # 2.4 [place] # 0.8 H Eos # 0.2 Baso # 0.02 Sodium 138 Potassium 4.4 Chloride 104 Carbon Dioxide 25 Anion Gap 13 BUN 25 H Creatinine 1.1 Est GFR ( Amer) > 60 Est GFR (Non-Af Amer) > 60 Random Glucose 117 H Calcium 9.8 Total Bilirubin 0.5 AST 31 ALT 47 Alkaline Phosphatase 91 Total Protein 7.9 Albumin 4.2 Globulin 3.7 Albumin/Globulin Ratio 1.1 Assessment & Plan - Assessment and Plan (Free Text) Plan: Assessment Consider surgical site infection in a patient who just underwent transmetatarsal amputation on the right foot September 12 2016 for gangrenous toes HTN DM S/P 2nd and 3rd toes on the right foot S/P transmetatarsal amputation on the right foot September 12 2016 obesity with BMI 39 Plan Started patient on Vancomycin, Aztreonam and Flagyl pending blood cx, wound cx Follow up Podiatry evaluation Will follow clinically
[2016-09-26] MEDS ORDERED: Insulin Detemir 100 units/ml Vial (Levemir) SC SCH (22:00)
[2016-09-26] MEDS: Aztreonam 2 Gm in NS 100mL 100 ML IVPB SCH (22:06)
[2016-09-26] MEDS ORDERED: Pneumococcal 23-Valent Vaccine IM ONE (22:15)
[2016-09-27] MEDS: Aztreonam 2 Gm in NS 100mL 100 ML IVPB SCH ×2 (05:36→14:40)
[2016-09-27] MEDS: metroNIDAZOLE IV 500 mg/100 ml 100 ML IVPB SCH ×2 (05:39→14:37)
[2016-09-27 07:55] LABS: ADD MANUAL DIFF? NO
[2016-09-27 07:57] LABS: BASO # 0.03 K/mm3 (0.0-2.0); BASO % 0.3 % (0.0-3.0); EOS # 0.2 (0.0-0.7); EOS % 2.6 % (1.5-5.0); GRAN # 5.99 (1.4-6.5); GRAN % 67.6 % (50.0-68.0); HEMATOCRIT 31.3 % (42.0-52.0); LYMPH % 22.4 % (22.0-35.0); MEAN CELL VOLUME 86.5 fL (80.0-105.0); MEAN CORPUSCULAR HEMOGLOBIN 29.3 pg (25.0-35.0); MEAN CORPUSCULAR HGB CONC 33.9 g/dl (31.0-37.0); MEAN PLATELET VOLUME 10.4 fl (7.0-11.0); MONO # 0.6 (0.1-0.6); MONO % 7.1 % (1.0-6.0); PLATELET COUNT 222 10^3/uL (120.0-450.0); RED CELL DISTRIBUTION WIDTH 13.1 % (11.5-14.5); WHITE BLOOD COUNT 8.9 10^3/ul (4.5-11.0)
[2016-09-27 08:02] VITALS: BP 138/92; PULSE 96; RESP 20; O2SAT 98
[2016-09-27 08:09] LABS: BLOOD UREA NITROGEN 17 mg/dL (7-21); GLUCOSE,RANDOM 115 mg/dL (70-110)
[2016-09-27 08:10] LABS: ALB/GLOB RATIO 1.2 (1.1-1.8); ALKALINE PHOSPHATASE 65 U/L (38-133); ALT/SGPT 53 U/L (7-56); AST/SGOT 29 U/L (15-59); BILIRUBIN,TOTAL 0.6 mg/dL (0.2-1.3); CALCIUM 9.3 mg/dL (8.4-10.5); CARBON DIOXIDE 26 mmol/L (21-33); CHLORIDE 106 mmol/L (98-107); GFR AFRICAN-AMERICAN > 60; POTASSIUM 4.5 mmol/L (3.6-5.0); SODIUM 141 mmol/L (132-148); TOTAL PROTEIN 7.2 g/dL (5.8-8.3)
--- NOTE | 2016-09-27 08:30 | PN ---
DATE: 09/27/2016 SUBJECTIVE: The patient seen and examined at bedside on the general medical velez. No acute events o vernight. He remains afebrile and hemodynamically stable. This morning, the patient states he feels well, and denies fevers, chills, rigors, or pain to his right TMA surgical site. OBJECTIVE: VITAL SIGNS: Temperature 98, pulse 90, blood pressure 138/85, respiratory rate 20, oxygen saturation 98% on room air. GENERAL: No apparent distress. HEENT: PERRL, EOMI. No scleral icterus, no conjunctival pallor. NECK: No JVD, no bruits. LUNGS: Clear to auscultation. CARDIOVASCULAR: Regular rate and rhythm. Normal S1 and S2. ABDOMEN: Obese, normoactive bowel sounds, soft, nontender, nondistended. EXTREMITIES: No edema. Right foot with dressing in place and podiatric boot in place. NEUROLOGIC: Awake, alert and oriented x 3. No focal motor deficits. LABORATORY DATA: WBC 8.9 with 67% neutrophils, hemoglobin 10.6, hematocrit 31, platelets 222. Chem istry pending. ESR 35. CRP 7.2. ASSESSMENT: The patient is a 56-year-old man with past medical history of insulin-dependent diabetes mellitus, hypertension, hyperlipidemia, and severe peripheral vascular disease status post right tra nsmetatarsal amputation, who was referred to the Emergency Department by his appointment specialist for evaluatio n of possible surgical site infection. PLAN: 1. Cellulitis of right TMA surgical site. Continue with local care as per Dr. Menezes and the podiat bonilla team. Input from Dr. Abreu of infectious disease noted and greatly appreciated, and the patient is presently on aztreonam 2 g IV q. 8 hours, metronidazole 500 mg IV q. 8 hours, and vancomycin 1 g I V hours. Continue to monitor for fever and leukocytosis. Will await final culture reports. 2. Severe PVD status post right TMA. Continue with care as per #1. Continue with Lipitor 20 mg p.o. daily, and Eliquis 5 mg p.o. b.i.d. 3. Insulin-dependent diabetes mellitus. Continue with Levemir 45 units SC b.i.d., Humalog 10 units S C t.i.d. with meals, and metformin 1000 mg p.o. b.i.d. Continue to monitor fingersticks q.a.c., at b edtime. 4. Hypertension. Continue with lisinopril 40 mg p.o. daily, and amlodipine 10 mg p.o. daily. 5. Anxiety disorder. Continue with Xanax 0.5 mg p.o. b.i.d. 6. Hyperlipidemia. Continue with Lipitor 20 mg p.o. daily. 7. Prophylaxis. GI prophylaxis not indicated as the patient is eating. The patient remains on Eliqui s for his PVD, thus DVT prophylaxis not indicated. CODE STATUS: Full Code. Rojelio Garzon MD cc: [phone] TT: 09/27/2016 08:29:44 Confirmation # [id number] Dictation # [id number] adeola
[2016-09-27] MEDS ORDERED: Insulin Detemir 100 units/ml Vial (Levemir) SC SCH (10:00)
[2016-09-27] MEDS: Vancomycin 1gm in NS 250ml 250 ML IVPB SCH (10:48)
[2016-09-27] MEDS: Insulin Lispro 1 UNITS/0.01 ML SC SCH ×2 (10:49→14:37)
--- NOTE | 2016-09-27 15:11 | PN ---
DATE: 09/27/2016 A 56-year-old male well known to the [facility] Wound care team, seen at bedside for cont inued evaluation and management of a dehisced left transmetatarsal amputation site. The patient is b eing transferred to TCU where he will undergo IV antibiotics to quell his postop infection. The silvano ent is seen at bedside walking around without his surgical shoe on against medical advice. The patie nt was told that he needs to wear the forefoot offloading shoe at all times even if he takes 1 step t o avoid dehiscence and that is precisely the reason why we are in the position we are right now, lars use he has failed to obey and listen to doctor's orders. The patient states he will wear the shoe go ing forward. PAST MEDICAL HISTORY: Significant for longstanding insulin-dependent diabetes with peripheral vascul ar disease and peripheral neuropathy, essential hypertension, obesity, hyperlipidemia, as well as anx iety disorder. PAST SURGICAL HISTORY: Includes spinal fusion, recent left transmetatarsal amputation as well as rig ht knee arthroscopy. ALLERGIES: THE PATIENT IS ALLERGIC TO TETRACYCLINE, HEPARIN AND PENICILLIN. MEDICATIONS: All medications are noted in MAR. OBJECTIVE: Weakly palpable pedal pulses noted bilaterally. Left foot presents with a transmetatarsa l amputation that shows dehiscence at various spots along the incision site. The area is primarily g ranular with serous drainage. There is no purulence. There is no edema. There is no erythema. The re are no signs of ascending cellulitis. The wounds remain superficial and do not probe to tendon or bone and there are no signs of abscess formation present. ASSESSMENT: Resolving cellulitis of the left transmetatarsal amputation site. PLAN OF TREATMENT: The patient was once again told that he must use the forefoot offloading shoe at all times when walking even if it is just to take 1 step. He will go to TCU for physical therapy, wh ich he will need to use the special shoe at all times. The patient states he understands. The wound was cleansed with normal sterile saline and application of sterile Adaptic and a dry sterile dressin g was applied. The patient will be seen and followed daily while in-house. Rolf Carballo DPM cc: [id number] TT: 09/27/2016 15:10:18 Confirmation # [id number] Dictation # [id number] sn
--- NOTE | 2016-09-27 17:55 | CP.PCM.PN ---
Subjective - Date & Time of Evaluation Date of Evaluation: 09/27/16 Time of Evaluation: 10:45 - Subjective Subjective: Comfortable in bed, not in distress. LEss pain in the foot, no fevers overnight. Objective - Vital Signs/Intake and Output Vital Signs (last 24 hours): Temp Pulse Resp BP Pulse Ox 98 F 96 H 20 138/92 H 98 09/27/16 08:02 09/27/16 10:49 09/27/16 08:02 09/27/16 10:49 09/27/16 08:02 Intake and Output: 09/27/16 09/27/16 06:59 18:59 Intake Total 720 960 Output Total 1000 Balance -280 960 - Medications Medications: Current Medications Alprazolam (Xanax) 0.5 mg PO BID PRN; Protocol PRN Reason: Anxiety Amlodipine Besylate (Norvasc) 10 mg PO DAILY [facility] Last Admin: 09/27/16 10:49 Dose: 10 mg Apixaban (Eliquis) 5 mg PO BID [facility] PRN Reason: Protocol Last Admin: 09/27/16 10:49 Dose: 5 mg Atorvastatin Calcium (Lipitor) 20 mg PO DAILY [facility] Last Admin: 09/27/16 10:49 Dose: 20 mg Sodium Chloride (Sodium Chloride 0.9%) 1,000 mls @ 100 mls/hr IV .Q10H [facility] Last Admin: 09/26/16 10:59 Dose: 100 mls/hr Aztreonam (Azactam 2 Gm) 100 mls @ 100 mls/hr IVPB Q8 [facility] PRN Reason: Protocol Stop: 10/03/16 14:01 Last Admin: 09/27/16 14:40 Dose: 100 mls/hr Metronidazole (Flagyl) 100 mls @ 100 mls/hr IVPB Q8 [facility] PRN Reason: Protocol Last Admin: 09/27/16 14:37 Dose: 100 mls/hr Insulin Detemir (Levemir) 45 unit SC BID [facility] Last Admin: 09/27/16 10:50 Dose: Not Given Insulin Human Lispro (Humalog) 10 units SC TID [facility] Last Admin: 09/27/16 14:37 Dose: 10 units Lisinopril (Zestril) 40 mg PO DAILY [facility] Last Admin: 09/27/16 10:48 Dose: 40 mg Metformin HCl (Glucophage) 1,000 mg PO BID [facility] Last Admin: 09/27/16 10:49 Dose: 1,000 mg - Labs Labs: 09/27/16 07:30 09/27/16 07:30 - Constitutional Appears: Non-toxic, No Acute Distress - Head Exam Head Exam: NORMAL INSPECTION - ENT Exam ENT Exam: Mucous Membranes Moist - Neck Exam Neck Exam: absent: Lymphadenopathy, Meningismus - Respiratory Exam Respiratory Exam: Decreased Breath Sounds - Cardiovascular Exam Cardiovascular Exam: +S1, +S2 - GI/Abdominal Exam GI & Abdominal Exam: Soft. absent: Tenderness Assessment and Plan - Assessment and Plan (Free Text) Plan: Assessment Consider surgical site infection in a patient who just underwent transmetatarsal amputation on the right foot September 12 2016 for gangrenous toes HTN DM S/P 2nd and 3rd toes on the right foot S/P transmetatarsal amputation on the right foot September 12 2016 obesity with BMI 39 Plan continue on Aztreonam and Flagyl and change Vancomycin to Zyvox day 2 pending final blood cx, wound cx results Follow up Podiatry evaluation Will continue to follow clinically
[2016-09-27] MEDS ORDERED: Linezolid 600 mg in D5W 300 ml 300 ML IVPB SCH (22:00)
--- NOTE | 2016-09-28 11:08 | DS ---
ADMITTING DIAGNOSIS: Cellulitis of the right foot transmetatarsal amputation surgical site. DISCHARGE DIAGNOSIS: Cellulitis of the right foot transmetatarsal amputation surgical site. SECONDARY DIAGNOSES: Peripheral vascular disease, status post transmetatarsal amputation, insulin-de pendent diabetes mellitus, hypertension, anxiety disorder, hyperlipidemia. CONSULTATIONS: Dr. Cote (infectious disease), Dr. Menezes (podiatry). IMAGING STUDIES: None. HISTORY OF PRESENT ILLNESS: The patient is a 56-year-old man with past medical history of severe per ipheral vascular disease, status post right TMA, insulin-dependent diabetes mellitus, hypertension, a nd hyperlipidemia, who was recently discharged from [facility] status post right TMA on , who was referred to the Emergency Department by his machine greaser (Dr. Menezes) for concern o f possible surgical site infection to his right TMA site. The patient reported increased erythema fr om his surgical site and upon evaluation at the wound center with Dr. Menezes, was noted to have scan t purulent discharge. The patient denied any symptoms associated with his right foot erythema; howev er, given the scant purulent discharge, he was advised to present to the ED for further evaluation. Upon arrival to the ED, he was noted to be afebrile and hemodynamically stable and initial laboratory studies were largely unremarkable with the exception of a markedly elevated ESR of 35. The patient was started on IV aztreonam and vancomycin and subsequently admitted to the general medical velez for continued management of his surgical site infection. HOSPITAL COURSE: Upon admission to the general medical velez, the patient was evaluated by Dr. Abreu of infectious disease and Dr. Menezes of podiatry. He was maintained on intravenous aztreonam, vanco mycin and metronidazole. Local wound care was continued by Dr. Menezes of the podiatric team. Given his clinical stability, it was felt that the patient would be best served on the TCU where he can co ntinue intravenous antibiotics and participate in physical therapy and arrangements were made to have the patient transferred to TCU. CONDITION: Good, improved. DISPOSITION: To TCU. DISCHARGE MEDICATIONS: Levemir 90 units SC at bedtime, Humalog 10 units SC t.i.d. with meals, metfor min 1000 mg p.o. b.i.d., Lipitor 20 mg p.o. daily, amlodipine 10 mg p.o. daily, lisinopril 40 mg p.o. daily, Xanax 0.5 mg p.o. b.i.d. and Eliquis 5 mg p.o. b.i.d. FOLLOWUP: The patient will be followed up by his PMD, Dr. Menezes and Dr. Cote while on the TC U. Rojelio Garzon MD cc: [phone] TT: 09/28/2016 11:07:14 tn
== END 2016-09-27 17:12 | DRG 920 ==
LOC: ED 08:49 → ERH 11:05 → 5RNO 16:37
PROVIDERS: ADMIT Student in an Organized Health Care Education/Training Program; ATTEND Student in an Organized Health Care Education/Training Program
DX: T81.31XA Disruption of external operation (surgical) wound, not elsewhere classified, initial encounter (principal); T81.4XXA Infection following a procedure, initial encounter; E10.22 Type 1 diabetes mellitus with diabetic chronic kidney disease; E10.42 Type 1 diabetes mellitus with diabetic polyneuropathy; L03.115 Cellulitis of right lower limb; J44.1 Chronic obstructive pulmonary disease with (acute) exacerbation; E10.51 Type 1 diabetes mellitus with diabetic peripheral angiopathy without gangrene; I12.9 Hypertensive chronic kidney disease with stage 1 through stage 4 chronic kidney disease, or unspecified chronic kidney disease; E66.9 Obesity, unspecified; Z68.39 Body mass index [BMI] 39.0-39.9, adult; N18.1 Chronic kidney disease, stage 1; E78.5 Hyperlipidemia, unspecified; Z79.01 Long term (current) use of anticoagulants; Z79.4 Long term (current) use of insulin; Z79.899 Other long term (current) drug therapy; Z82.49 Family history of ischemic heart disease and other diseases of the circulatory system; Z83.3 Family history of diabetes mellitus; Z98.1 Arthrodesis status; Z89.421 Acquired absence of other right toe(s); Z88.1 Allergy status to other antibiotic agents; Z88.8 Allergy status to other drugs, medicaments and biological substances; F41.9 Anxiety disorder, unspecified; Z88.0 Allergy status to penicillin

== ENCOUNTER 2018-06-25 10:56 | Outpatient (CLI) | payer MEDICARE, OTHER | END 2018-06-25 10:57 | disposition home or self-care (01) | LOC: LAB 10:56 ==

== ENCOUNTER 2018-06-26 13:17 | Outpatient (CLI) | payer MEDICARE, OTHER | END 2018-06-26 13:18 | disposition home or self-care (01) | LOC: RAD 13:18 ==

== ENCOUNTER 2018-07-26 09:53 | Outpatient (CLI) | payer MEDICARE, OTHER | END 2018-07-26 09:54 | disposition home or self-care (01) | LOC: RAD 09:53 | DX: S92.902A Unspecified fracture of left foot, initial encounter for closed fracture (principal) ==

== ENCOUNTER 2018-08-27 12:21 | Outpatient (CLI) | payer MEDICARE, OTHER | END 2018-08-27 12:22 | disposition home or self-care (01) | LOC: RAD 12:21 ==

== ENCOUNTER 2018-10-02 12:58 | Outpatient (CLI) | payer MEDICARE, OTHER | END 2018-10-02 12:59 | disposition home or self-care (01) | LOC: RAD 12:58 | DX: E11.9 Type 2 diabetes mellitus without complications (principal) ==

== ENCOUNTER 2018-10-15 11:00 | Inpatient (IN) | payer MEDICARE, OTHER ==
[2018-10-15 11:12] VITALS: BMI 40.7
[2018-10-15] MEDS ORDERED: Vancomycin 1gm in NS 250ml 1 GM/250 ML BAG IVPB STA (11:19)
--- NOTE | 2018-10-15 11:51 | ED PDOC ---
Arrival/HPI - General Historian: Patient - History of Present Illness Narrative History of Present Illness (Text): 10/15/18 11:46 CC: infection in foot (Dr. Menezes) 58 yo male w/ PMH of HTN, DM2, asthma, Hypercholesterolemia, and Arthritis evaluated in ED after his podiatry outpatient clinic visit with Dr. Menezes who suggested that patient come to emergency department due to an infection of the left foot. Patient states that he broke his left foot on s Lois. From t hen he was initially placed in a cast for a couple weeks and then switched to different casts as patient developed a blister during this time. He has been following outpatient Dr. Menezes for care of his broken foot. Patient states he first noticed his infection on Monday but because he had an appointment in 3 days he decided just to try Tylenol and Aleve at home because he was having chills. Patient never recorded a temperature. Patient states he also decided to take an old antibiotic that was prescribed to him by Dr. Menezes previously. Patient states he has no pain but has noticed significant erythema on the right foot. Time/Duration: < week Symptom Onset: Gradual Symptom Course: Unchanged <Diego Rosas - Last Filed: 10/15/18 15:08> <Jeferson Daniels - Last Filed: 10/15/18 18:52> - General Chief Complaint: Abnormal Skin Integrity Time Seen by Provider: 10/15/18 11:10 Past Medical History - Provider Review Nursing Documentation Reviewed: Yes Primary Care Provider: Rojelio Garzon MD - Infectious Disease Hx of Infectious Diseases: None - Tetanus Immunization Tetanus Immunization: Unknown - Cardiac Hx Cardiac Disorders: Yes Hx Hypertension: Yes Other/Comment: DVT, R leg stent - Pulmonary Hx Respiratory Disorders: Yes Hx Asthma: Yes - Neurological Hx Neurological Disorder: Yes - HEENT Hx HEENT Disorder: No Hx Blind: No - Renal Hx Renal Disorder: Yes (STAGE1) - Endocrine/Metabolic Hx Endocrine Disorders: Yes Hx Diabetes Mellitus Type 1: Yes - Hematological/Oncological Hx Blood Disorders: No - Integumentary Hx Dermatological Disorder: Yes (AMPUTATIONS OF 2ND AND 3RD TOES.P BUNIONECTOMY JOHN FOOT RIGHT) Other/Comment: RIGHT FOOT TRANSMETATARSAL AMPUTATION OF RIGHT FOOT. 17 - Musculoskeletal/Rheumatological Hx Falls: No - Gastrointestinal Hx Gastrointestinal Disorders: No - Genitourinary/Gynecological Hx Reproductive Disorders: No - Psychiatric Hx Psychophysiologic Disorder: No Hx Emotional Abuse: No Hx Physical Abuse: No Hx Substance Use: No - Surgical History Hx Amputation: Yes Hx Orthopedic Surgery: Yes Other/Comment: Right foot transmetatarsal amputation 09/12/16. TONSILLECTOMY,BUNIONECTOMY, - Anesthesia Hx Anesthesia Reactions: No Hx Malignant Hyperthermia: No - Suicidal Assessment Feels Threatened In Home Enviroment: No <RalphMadaser - Last Filed: 10/15/18 15:08> Family/Social History - Physician Review Nursing Documentation Reviewed: Yes Family/Social History: Diabetes, Hypertension, CAD/[place] Smoking Status: Never Smoked Hx Alcohol Use: No Hx Substance Use: No <RalphMadaser - Last Filed: 10/15/18 15:08> Allergies/Home Meds <RalphMadaser - Last Filed: 10/15/18 15:08> <BosJeferson alexis - Last Filed: 10/15/18 18:52> Allergies/Adverse Reactions: Allergies heparin Allergy (Verified 10/15/18 11:12) ANGIOEDEMA Penicillins Allergy (Verified 10/15/18 11:12) RASH tetracycline HCl [From Achromycin] Allergy (Verified 10/15/18 11:12) RASH Home Medications: Home Meds Medication Instructions Recorded Confirmed Metformin HCl 1,000 mg PO BID 05/07/12 10/15/18 Apixaban [Eliquis] 5 mg PO BID 04/04/16 10/15/18 Diclofenac 75 mg PO BID 04/04/16 10/15/18 Docusate [Colace] 100 mg PO BID 04/04/16 10/15/18 Dulaglutide [Trulicity] 1.5 mg SC QWK 04/04/16 10/15/18 Insulin Glargine, Recombina 120 unit SC HS 04/04/16 10/15/18 [Lantus] Levocetirizine Dihydrochloride 5 mg PO DAILY 04/04/16 10/15/18 [Xyzal] Lisinopril [Zestril] 40 mg PO ACB 04/04/16 10/15/18 amLODIPine [Norvasc] 10 mg PO DAILY 04/04/16 10/15/18 Atorvastatin Calcium 20 mg PO DAILY 08/29/16 10/15/18 Insulin Lispro [Humalog (Insulin 20 unit SQ ACTID 08/29/16 10/15/18 Lispro)] Review of Systems - Physician Review All systems were reviewed & negative as marked: Yes - Review of Systems Constitutional: Normal. absent: Fatigue, Weight Change, Fevers Eyes: Normal. absent: Vision Changes, Photophobia ENT: Normal Cardiovascular: Normal. absent: Chest Pain, Palpitations, Edema, Calf Pain Gastrointestinal: Normal. absent: Abdominal Pain, Stool Changes, Constipation, Diarrhea Genitourinary Male: Normal. absent: Dysuria, Frequency, Hematuria Musculoskeletal: Normal. absent: Arthralgias, Back Pain, Neck Pain, Joint Swelling Skin: Normal. absent: Rash, Pruritis, Skin Lesions Neurological: Normal. absent: Headache, Dizziness, Focal Weakness Endocrine: Normal. absent: Diaphoresis, Polyuria, Polydipsia Hemo/Lymphatic: Normal. absent: Adenopathy, Easy Bleeding, Easy Bruising Psychiatric: Normal. absent: Anxiety, Depression, Suicidal Ideation <Diego Rosas - Last Filed: 10/15/18 15:08> Physical Exam Vital Signs Reviewed: Yes Vital Signs Temp Pulse Resp BP Pulse Ox 10/15/18 11:12 99.1 F 99 H 18 126/79 95 Temperature: Afebrile Blood Pressure: Normal Pulse: Regular Respiratory Rate: Normal Appearance: Positive for: Well-Appearing, Non-Toxic, Comfortable Pain Distress: None Mental Status: Positive for: Alert and Oriented X 3 - Systems Exam Head: Present: Atraumatic, Normocephalic. No: Tenderness, Contusion, Swelling Pupils: Present: PERRL. No: Sluggish, Non-Reactive, Pinpoint, Other Extroacular Muscles: Present: EOMI Conjunctiva: Present: Normal Mouth: Present: Moist Mucous Membranes. No: Dry, Drooling Neck: Present: Normal Range of Motion Respiratory/Chest: Present: Clear to Auscultation, Good Air Exchange. No: Respiratory Distress, Accessory Muscle Use Cardiovascular: Present: Regular Rate and Rhythm, Normal S1, S2, Tachycardic. No: Murmurs Abdomen: Present: Normal Bowel Sounds. No: Tenderness, Distention, Peritoneal Signs Upper Extremity: Present: Normal Inspection. No: Cyanosis, Edema Lower Extremity: Present: NORMAL PULSES, Erythema (left lower extremity eryhtema noted in foot ), Other (left pinky digit with lateral ulcer with no drainage, open wound underneath 5th digit ). No: Edema, CALF TENDERNESS, Tenderness Neurological: Present: GCS=15, CN II-XII Intact, Speech Normal Skin: Present: Warm, Dry, Normal Color. No: Rashes Psychiatric: Present: Alert, Oriented x 3, Normal Insight, Normal Concentration <Diego Rosas - Last Filed: 10/15/18 15:08> Vital Signs Temp Pulse Resp BP Pulse Ox 10/15/18 15:06 100.4 F H 92 H 18 142/76 98 10/15/18 14:41 97 H 18 168/93 H 97 10/15/18 12:52 86 18 122/71 96 10/15/18 11:12 99.1 F 99 H 18 126/79 95 <Jeferson Daniels - Last Filed: 10/15/18 18:52> Medical Decision Making ED Course and Treatment: 10/15/18 11:58 Impression: 58 yo male w/ PMH of HTN, DM, asthma, hypercholesterolemia, and arthritis evaluated in ED for diabetic foot ulcer on lateral 5th digit on left foot and open skin lesion underneath 5th digit on the left foot, foul-smelling. Plan: -Foot xray -CBC -CMP -IV vanc -Bcx and Wound cx -ESR -VBG -Podiatry and ID consult -1L bolus -MRI on 10/04 showed no osteomyelitis Prior visits: 08/29/16: Ischemic toes 09/26/16: TMA of right foot Progress Notes: CBC received with elevated WBC and ESR likely suggestive of infection 2/2 cellulitis Elevated lactate will trend s/p fluid resuscitation CMP with low magnesium Will admit to medicine team under Dr. Garzon 10/15/18 15:10 Re-evaluation Time: 15:08 Reassessment Condition: Re-examined, Unchanged - Lab Interpretations Narrative Lab Interpretation (Text): 10/15/18 15:09 Elevated WBC suggestive of infection Elevated Lactate, will repeat lactate after IV fluid resuscitation I have reviewed the lab results: Yes Interpretation: Abnormal lab values - RAD Interpretation Narrative RAD Interpretations (Text): 10/15/18 15:08 Foot xray- no plain radiographic evidence of OM. Displaced fracture 2nd metatarsal. Lisfranc injury of the foot as above. Soft tissue gas between the base of the 4th and 5th proximal phalanges. Radiology Orders: 10/15/18 11:20 CHEST PORTABLE [RAD] Stat 10/15/18 11:24 FOOT LEFT 3 VIEWS ROUTINE [RAD] Stat Truck Unloader: Radiologist - Medication Orders Current Medication Orders: Vancomycin HCl (Vancomycin 1gm) 1 gm in 250 mls @ 167 mls/hr IVPB STAT STA; Protocol Stop: 10/15/18 12:48 <Diego Rosas - Last Filed: 10/15/18 15:08> ED Course and Treatment: 10/15/18 18:52 Patient Seen with Resident: In agreement with resident note which contains more details about the patient. Patient seen and evaluated with resident. Came up with plan and treatment together. - Lab Interpretations Lab Results: pO2 98 mm/Hg (30-55) H 10/15/18 15:39 VBG pH 7.36 (7.32-7.43) 10/15/18 15:39 VBG pCO2 40.0 (40-60) 10/15/18 15:39 VBG HCO3 22.6 mmol/l (21-28) 10/15/18 15:39 VBG Total CO2 23.8 mmol.L (22-28) 10/15/18 15:39 VBG O2 Sat (Calc) 98.6 % (40-65) H 10/15/18 15:39 VBG Base Excess -2.7 mmol/L (0.0-2.0) L 10/15/18 15:39 VBG Potassium 4.6 mmol/L (3.6-5.2) 10/15/18 15:39 Sodium 136.0 mmol/L (132-148) 10/15/18 15:39 Chloride 106.0 mmol/L (98-107) 10/15/18 15:39 Glucose 244 mg/dl (75-110) H 10/15/18 15:39 Lactate 1.4 mmol/L (0.7-2.1) 10/15/18 15:39 FiO2 21.0 % 10/15/18 15:39 PT 24.2 SECONDS (9.4-12.5) H 10/15/18 12:11 INR 2.14 10/15/18 12:11 APTT 42.6 Seconds (26.9-38.3) H 10/15/18 12:11 Total Bilirubin 0.6 mg/dL (0.2-1.3) 10/15/18 12:11 AST 23 U/L (17-59) 10/15/18 12:11 ALT 28 U/L (7-56) 10/15/18 12:11 Alkaline Phosphatase 98 U/L (38-126) 10/15/18 12:11 Total Protein 7.4 g/dL (5.8-8.3) 10/15/18 12:11 Albumin 4.1 g/dL (3.0-4.8) 10/15/18 12:11 Globulin 3.3 gm/dL 10/15/18 12:11 Albumin/Globulin Ratio 1.2 (1.1-1.8) 10/15/18 12:11 Urine Color Yellow (YELLOW) 10/15/18 11:40 Urine Appearance Clear (CLEAR) 10/15/18 11:40 Urine pH 5.5 (4.7-8.0) 10/15/18 11:40 Ur Specific [place] >= 1.030 (1.005-1.035) 10/15/18 11:40 Urine Protein 30 mg/dL (<30 mg/dL) H 10/15/18 11:40 Urine Glucose (UA) Negative mg/dL (NEGATIVE) 10/15/18 11:40 Urine Ketones Trace mg/dL (NEGATIVE) H 10/15/18 11:40 Urine Blood Negative (NEGATIVE) 10/15/18 11:40 Urine Nitrate Negative (NEGATIVE) 10/15/18 11:40 Urine Bilirubin Negative (NEGATIVE) 10/15/18 11:40 Urine Urobilinogen 0.2 E.U./dL (<1 E.U./dL) 10/15/18 11:40 Ur Leukocyte Esterase Negative She[place]/uL (NEGATIVE) 10/15/18 11:40 Urine RBC 0 - 2 /hpf (0-2) 10/15/18 11:40 Urine WBC 0 - 2 /hpf (0-6) 10/15/18 11:40 Ur Epithelial Cells None /hpf (0-5) 10/15/18 11:40 Amorphous Sediment Few /hpf (NONE) 10/15/18 11:40 Urine Bacteria Many /hpf (NONE) 10/15/18 11:40 Urine Other Fiber /hpf 10/15/18 11:40 - RAD Interpretation Radiology Orders: 10/15/18 11:20 CHEST PORTABLE [RAD] Stat 10/15/18 11:24 FOOT LEFT 3 VIEWS ROUTINE [RAD] Stat - Medication Orders Current Medication Orders: Amlodipine Besylate (Norvasc) 10 mg PO DAILY [facility] Apixaban (Eliquis) 5 mg PO BID [facility]; Protocol Last Admin: 10/15/18 17:42 Dose: 5 mg Atorvastatin Calcium (Lipitor) 20 mg PO DAILY [facility] Insulin Detemir (Levemir) 30 unit SC BID [facility] Last Admin: 10/15/18 18:26 Dose: 30 units MAR Blood Glucose Document 10/15/18 18:26 DM (Rec: 10/15/18 18:27 [id number]) Blood Glucose Finger Stick Blood Glucose (70-120) 273 Subcutaneous Administrations Document 10/15/18 18:26 DM (Rec: 10/15/18 18:27 [id number]) Injection Site MAR Injection Site Right Arm Charges for Administration # of Subcutaneous Administrations 1 Insulin Human Lispro (Humalog Med) 0 units SC [facility]; Protocol Last Admin: 10/15/18 17:43 Dose: 5 units MAR Blood Glucose Document 10/15/18 17:43 [facility]Rec: 10/15/18 17:43 [id number]) Blood Glucose Finger Stick Blood Glucose (70-120) 273 Subcutaneous Administrations Document 10/15/18 17:43 [facility]Rec: 10/15/18 17:43 [id number]) Injection Site MAR Injection Site Left Arm Charges for Administration # of Subcutaneous Administrations 1 Lisinopril (Zestril) 40 mg PO DAILY [facility] Metformin HCl (Glucophage) 1,000 mg PO BID [facility] Last Admin: 10/15/18 17:42 Dose: 1,000 mg Discontinued Medications Acetaminophen (Tylenol 325mg Tab) 650 mg PO STAT STA Stop: 10/15/18 15:07 Last Admin: 10/15/18 15:18 Dose: 650 mg MAR Pain/Vitals Document 10/15/18 15:18 HATTIE (Rec: 10/15/18 15:18 HATTIE [id number]) Pain Reassessment Is This A Pain ReAssessment? No Sleep Is patient sleeping during reassessment? No Vancomycin HCl (Vancomycin 1gm) 1 gm in 250 mls @ 167 mls/hr IVPB STAT STA; Protocol Stop: 10/15/18 12:48 Last Admin: 10/15/18 12:41 Dose: 167 mls/hr eMAR Start Stop Document 10/15/18 12:41 HATTIE (Rec: 10/15/18 12:41 HATTIE [id number]) Intravenous Solution Start Date 10/15/18 Start Time 12:41 End Date 10/15/18 End time 14:20 Total Infusion Time 99 Sodium Chloride (Sodium Chloride 0.9%) 1,000 mls @ 999 mls/hr IV .Q1H1M STA Stop: 10/15/18 16:06 Last Admin: 10/15/18 15:17 Dose: 999 mls/hr eMAR Start Stop Document 10/15/18 15:17 HATTIE (Rec: 10/15/18 15:17 HATTIE [id number]) Intravenous Solution Start Date 10/15/18 Start Time 15:17 End Date 10/15/18 End time 16:17 Total Infusion Time 60 Metformin HCl (Glucophage) 1,000 mg PO BID [facility] <Jeferson Daniels - Last Filed: 10/15/18 18:52> - PA / DEVELOPMENTAL BEHAVIORAL PHYSICIAN / Resident Statement ROBIN has reviewed & agrees with the documentation as recorded. ROBIN has examined the patient and agrees with the treatment plan. <Jeferson Daniels - Last Filed: 10/15/18 18:52> Disposition/Present on Arrival - Present on Arrival Any Indicators Present on Arrival: Yes History of DVT/PE: No History of Uncontrolled Diabetes: Yes Urinary Catheter: No History of Decub. Ulcer: No History Surgical Site Infection Following: None - Disposition Have Diagnosis and Disposition been Completed?: Yes Disposition Time: 15:13 Patient Plan: Admission <Diego Rosas - Last Filed: 10/15/18 15:08> <Jeferson Daniels - Last Filed: 10/15/18 18:52> - Disposition Diagnosis: Cellulitis Disposition: HOSPITALIZED Condition: STABLE
[2018-10-15 12:37] LABS: VENOUS BLOOD GAS BASE EXCESS -1.8 mmol/L (0.0-2.0); VENOUS BLOOD GAS PO2 40 mm/Hg (30-55); VENOUS BLOOD PH 7.38 (7.32-7.43)
[2018-10-15 12:38] LABS: BASO # 0.02 K/mm3 (0.0-2.0); BASO % 0.1 % (0.0-3.0); EOS # 0.2 (0.0-0.7); EOS % 0.9 % (1.5-5.0); HEMOGLOBIN 10.5 g/dL (14.0-18.0); LYMPH # 2.1 (1.2-3.4); LYMPH % 11.6 % (22.0-35.0); MEAN CELL VOLUME 88.1 fl (80.0-105.0); MEAN CORPUSCULAR HEMOGLOBIN 28.5 pg (25.0-35.0); MEAN CORPUSCULAR HGB CONC 32.3 g/dl (31.0-37.0); MEAN PLATELET VOLUME 10.5 fl (7.0-11.0); MONO # 1.5 (0.1-0.6); MONO % 8.2 % (1.0-6.0); RBC 3.69 10^6/uL (3.5-6.1); RED CELL DISTRIBUTION WIDTH 13.6 % (11.5-14.5); WHITE BLOOD COUNT 18.4 10^3/uL (4.5-11.0)
[2018-10-15 12:39] LABS: PH,URINE 5.5 (4.7-8.0); URINE BILIRUBIN NEGATIVE (NEGATIVE); URINE BLOOD NEGATIVE (NEGATIVE); URINE GLUCOSE (UA) NEGATIVE (NEGATIVE); URINE LEUKOCYTE ESTERASE NEGATIVE Leu/uL (NEGATIVE); URINE PROTEIN 30 mg/dL (<30 mg/dL); URINE UROBILINOGEN 0.2 E.U./dL (<1 E.U./dL)
[2018-10-15 12:44] LABS: ALB/GLOB RATIO 1.2 (1.1-1.8); ALBUMIN 4.1 g/dL (3.0-4.8); ALT/SGPT 28 U/L (7-56); AST/SGOT 23 U/L (17-59); BLOOD UREA NITROGEN 21 mg/dL (7-21); CALCIUM 9.3 mg/dL (8.4-10.5); GFR NON-AFRICAN AMERICAN > 60
[2018-10-15 12:45] LABS: URINE APPEARANCE CLEAR (CLEAR); URINE COLOR YELLOW (YELLOW)
[2018-10-15 12:46] LABS: INR 2.14; PARTIAL THROMBOPLASTIN TIME 42.6 Seconds (26.9-38.3); PROTHROMBIN TIME 24.2 SECONDS (9.4-12.5)
[2018-10-15 13:00] LABS: URINE BACTERIA MANY /hpf; URINE RBC 0 - 2 /hpf (0-2); URINE WBC 0 - 2 /hpf (0-6)
[2018-10-15 13:01] LABS: URINE AMORPHOUS SEDIMENT FEW /hpf
--- NOTE | 2018-10-15 13:02 | RAD ---
Date of service: 10/15/2018 PROCEDURE: Left Foot Radiographs. HISTORY: ulcer r/o osteo COMPARISON: None. TECHNIQUE: 3 views obtained. FINDINGS: BONES: There is a displaced fracture at the base of the 2nd metatarsal diaphysis. There is a Lisfranc injury with lateral displacement of the base of the 3rd, 4th and 5th metatarsals relative to the tarsal bones. There is no other fracture appreciated. JOINTS: As above. No additional abnormality. SOFT TISSUES: There is lucency within the soft tissues at the interspace between the base of the 4th and 5th proximal phalanges, possibly subcutaneous gas. This could reflect cellulitis with a gas producing organism. No plain radiographic evidence of osteomyelitis. OTHER FINDINGS: None. IMPRESSION: No plain radiographic evidence of osteomyelitis. Displaced fracture 2nd metatarsal. Lisfranc injury of the foot as above. Soft tissue gas between the base of the 4th and 5th proximal phalanges. Please correlate with location of cutaneous ulcer.
--- NOTE | 2018-10-15 13:06 | RAD ---
Date of service: 10/15/2018 HISTORY: Sepsis Patient COMPARISON: 04/04/2016 TECHNIQUE: 1 view obtained. FINDINGS: LUNGS: No active pulmonary disease. PLEURA: No significant pleural effusion identified, no pneumothorax apparent. CARDIOVASCULAR: No aortic atherosclerotic calcification present. Normal cardiac size. No pulmonary vascular congestion. OSSEOUS STRUCTURES: No significant abnormalities. VISUALIZED UPPER ABDOMEN: Normal. OTHER FINDINGS: None. IMPRESSION: No active disease.
[2018-10-15] MEDS ORDERED: Sodium Chloride 0.9% 1,000 ML IV STA (15:06)
[2018-10-15 15:46] LABS: VENOUS BLOOD GAS BASE EXCESS -2.7 mmol/L (0.0-2.0); VENOUS BLOOD GAS PO2 98 mm/Hg (30-55); VENOUS BLOOD PH 7.36 (7.32-7.43)
[2018-10-15] MEDS: Insulin Lispro (humaLOG) MEDIUM Coverage SC SCH ×2 (17:43→23:30)
[2018-10-15] MEDS ORDERED: Insulin Detemir 100 units/ml Vial (Levemir) SC SCH (18:00)
[2018-10-15] MEDS ORDERED: Pneumococcal 23-Valent Vaccine IM ONE (18:50)
[2018-10-15] MEDS: Meropenem IV 1 gm in NS 1 GM/50 ML BAG IVPB SCH ×2 (21:36→23:29)
--- NOTE | 2018-10-15 22:37 | CON ---
DATE: 10/15/2018 The patient is seen in the emergency room. CHIEF COMPLAINT: Left foot infection times several days. HISTORY OF PRESENT ILLNESS: This is a 58-year-old male with diabetes mellitus, hypertension, high cholesterol, arthritis. The patient was seen by Dr. Menezes and was referred in because of his left foot infection. The patient denies any fevers and chills. No chest pain, shortness of breath, or cough. No hemoptysis. No abdominal pain or diarrhea. PAST MEDICAL HISTORY: Significant for obesity, COPD, hypertension, coronary artery disease, neuropathy. PAST SURGICAL HISTORY: Significant for right TMA, right foot surgery, tonsillectomy, back surgery. ALLERGIES: THE PATIENT IS ALLERGIC TO PENICILLIN AND TETRACYCLINE, THE PATIENT'S TYPE OF ALLERGY NOT CLEAR. MEDICATIONS AT HOME: Reviewed. The patient to be on statin, Eliquis, insulin, metformin. PHYSICAL EXAMINATION: GENERAL: The patient is in bed. VITAL SIGNS: Temperature of 100.4, heart rate of 99, respiratory rate of 18, blood pressure is 126/70. HEENT: Unremarkable. NECK: Supple. LUNGS: Have decreased breath sounds. HEART: Normal S1, S2. ABDOMEN: Soft, nontender. EXTREMITIES: Examination of the left foot reveals significant erythema and necrotic area in the left lateral part of foot and foul odorous. LABORATORY EXAMINATION: Reveals a white count of 18,400, hemoglobin of 10, platelets of 242. Chemistries are noted. Creatinine is 1.1. The patient has had a history of creatinine, which 1.7 in the past that was in 2015. Blood sugar is 220. Urinalysis is noted. Microbiology is pending. He has had microbiology in the past from the right foot in 2017 with E. Coli and Corynebacterium sensitivities are noted, and another right foot culture was also with E. coli in 2017, and in 2016 he had a sensitive Staph aureus and Corynebacterium. The patient had a chest x-ray, which is negative and foot x-ray, no evidence of osteomyelitis. ASSESSMENT AND PLAN: He is a 58-year-old male with diabetes, hypertension, anxiety, neuropathy, morbid obesity with a BMI of 41, history of deep vein thrombosis, history of coronary artery disease, high cholesterol, and arthritis; admitted with fevers, tachycardia, leukocytosis, and an inflamed left foot. 1. Sepsis with the left foot cellulitis. He is ALLERGIC TO PENICILLIN AND TETRACYCLINE. We will treat the patient with vancomycin and meropenem, must rule out underlying osteomyelitis and peripheral arterial disease. Vascular consultation and podiatric consultation on this patient, who has sepsis secondary to left foot cellulitis, rule out underlying osteomyelitis and progression of peripheral arterial disease. If possible, should have an MRI and Dopplers. We will follow with you. Renato Cote MD
[2018-10-15] MEDS: Vancomycin 1gm in NS 250ml 1 GM/250 ML BAG IVPB SCH (22:41)
[2018-10-15] MEDS: Insulin Reg-HIGH-Coverage SC SCH (22:42)
--- NOTE | 2018-10-16 02:19 | CP.PCM.PN ---
Subjective - Date & Time of Evaluation Date of Evaluation: 10/16/18 Time of Evaluation: 02:19 - Subjective Subjective: S:Patient was seen because of FSBS of 365 mg & medical laboratory scientist had ordered insulin. He has no complaints. Pertinent medical record was reviewed. O:VSS Not in acute distress. LUNGS: Normal breathing pattern. A:Hyperglycemia. P:Insulin as per order. Objective - Vital Signs/Intake and Output Vital Signs (last 24 hours): Temp Pulse Resp BP Pulse Ox 99.2 F 92 H 20 144/90 97 10/15/18 23:12 10/15/18 23:12 10/15/18 23:12 10/15/18 23:12 10/15/18 23:12 - Medications Medications: Current Medications Amlodipine Besylate (Norvasc) 10 mg PO DAILY [facility] Apixaban (Eliquis) 5 mg PO BID [facility]; Protocol Last Admin: 10/15/18 17:42 Dose: 5 mg Atorvastatin Calcium (Lipitor) 20 mg PO DAILY [facility] Meropenem (Merrem Iv 1 Gm Premix) 1 gm in 50 mls @ 100 mls/hr IVPB Q8 [facility]; Protocol Stop: 10/24/18 20:19 Last Admin: 10/15/18 23:29 Dose: Not Given Vancomycin HCl (Vancomycin 1gm) 1 gm in 250 mls @ 167 mls/hr IVPB Q12H [facility]; Protocol Stop: 10/24/18 20:31 Last Admin: 10/15/18 22:41 Dose: 167 mls/hr Insulin Detemir (Levemir) 30 unit SC BID [facility] Last Admin: 10/15/18 18:26 Dose: 30 units Insulin Human Regular (Humulin R High) 0 units SC ACHS [facility]; Protocol Last Admin: 10/15/18 22:42 Dose: 3 units Lisinopril (Zestril) 40 mg PO DAILY [facility] Metformin HCl (Glucophage) 1,000 mg PO BID [facility] Last Admin: 10/15/18 17:42 Dose: 1,000 mg - Labs Labs: 10/15/18 12:11 10/15/18 12:11 PT 24.2 SECONDS (9.4-12.5) H 10/15/18 12:11 INR 2.14 10/15/18 12:11 APTT 42.6 Seconds (26.9-38.3) H 10/15/18 12:11
[2018-10-16] MEDS: Meropenem IV 1 gm in NS 1 GM/50 ML BAG IVPB SCH ×3 (06:28→22:30)
[2018-10-16 07:07] LABS: BASO # 0.02 K/mm3 (0.0-2.0); BASO % 0.1 % (0.0-3.0); EOS # 0.1 (0.0-0.7); EOS % 0.6 % (1.5-5.0); HEMOGLOBIN 9.9 g/dL (14.0-18.0); LYMPH # 1.5 (1.2-3.4); LYMPH % 10.9 % (22.0-35.0); MEAN CELL VOLUME 88.1 fl (80.0-105.0); MEAN CORPUSCULAR HEMOGLOBIN 28.7 pg (25.0-35.0); MEAN CORPUSCULAR HGB CONC 32.6 g/dl (31.0-37.0); MEAN PLATELET VOLUME 10.4 fl (7.0-11.0); MONO # 1.8 (0.1-0.6); MONO % 12.5 % (1.0-6.0); RBC 3.45 10^6/uL (3.5-6.1); RED CELL DISTRIBUTION WIDTH 13.5 % (11.5-14.5); WHITE BLOOD COUNT 14.1 10^3/uL (4.5-11.0)
[2018-10-16 07:30] LABS: ALB/GLOB RATIO 1.2 (1.1-1.8); ALBUMIN 3.7 g/dL (3.0-4.8); ALT/SGPT 27 U/L (7-56); AST/SGOT 24 U/L (17-59); BLOOD UREA NITROGEN 21 mg/dL (7-21); CALCIUM 8.8 mg/dL (8.4-10.5); GFR NON-AFRICAN AMERICAN > 60
[2018-10-16] MEDS ORDERED: Insulin Reg-HIGH-Coverage SC SCH (07:30)
[2018-10-16] MEDS: Vancomycin 1gm in NS 250ml 1 GM/250 ML BAG IVPB SCH ×2 (08:23→20:31)
[2018-10-16] MEDS: Insulin Reg-HIGH-Coverage SC SCH ×4 (08:23→22:06)
[2018-10-16] MEDS ORDERED: Insulin Lispro 1 UNITS/0.01 ML SC SCH (10:00)
--- NOTE | 2018-10-16 10:14 | CT ---
Date of service: 10/16/2018 PROCEDURE: CT of the left foot HISTORY: left foot lisfranc injury COMPARISON: Recent plain films TECHNIQUE: Radiation dose: Total exam DLP = 403 mGy-cm. This CT exam was performed using one or more of the following dose reduction techniques: Automated exposure control, adjustment of the mA and/or kV according to patient size, and/or use of iterative reconstruction technique. FINDINGS: There is a displaced transverse fracture through the base of the 2nd metatarsal. There is a Lisfranc dislocation of the 3rd 4th and 5th metatarsals relative to the 3rd cuneiform and cuboid. There is lateral shift of the metatarsals. Small bony fragments are seen adjacent to the base of the metatarsals consistent with avulsion fractures. IMPRESSION: There is a displaced transverse fracture through the base of the 2nd metatarsal. There is a Lisfranc dislocation of the 3rd 4th and 5th metatarsals relative to the 3rd cuneiform and cuboid. There is lateral shift of the metatarsals.
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
[2018-10-16] MEDS: Insulin Detemir 100 units/ml Vial (Levemir) SC SCH ×2 (10:39→21:42)
[2018-10-16] MEDS: Albuterol-Ipratrop 3 mg / 0.5 (3 ml) UD IH SCH ×3 (10:58→20:22)
[2018-10-16] MEDS: Insulin Lispro 1 UNITS/0.01 ML SC SCH ×2 (12:00→17:13)
--- NOTE | 2018-10-16 16:19 | HP ---
HISTORY OF PRESENT ILLNESS: The patient is a 58-year-old man with a past medical history of insulin- dependent diabetes mellitus and severe PVD s/p right TMA who was sent to [facility] ED [facility] by Dr. Menezes for continued management of left foot cellulitis. He is closely followed by Dr. Menezes given his extensive history of diabetic foot ulcers. On his recent visit he was noted to have significant erythema with purulent discharge as was sent to the ED for inpatient management. In the ED he was afebrile and hemodynamically stable. Laboratory studies demonstrated leukocytosis with a WBC of 18.4. He received a dose of Vancomycin and was subsequently admitted to the general medical velez for continued management of sepsis secondary to left lower extremity cellulitis. PAST MEDICAL HISTORY: As per HPI, also hypertension, hyperlipidemia, COPD and anxiety disorder. PAST SURGICAL HISTORY: As per HPI, also tonsillectomy, right knee arthroscopy and spinal surgery with fusion of L4-L5. ALLERGIES: Penicillin, Tetracycline and Heparin. MEDICATIONS: Eliquis 5 mg p.o. b.i.d., Amlodipine 10 mg p.o. daily, Lisinopril 40 mg p.o. daily, Lipitor 20 mg p.o. daily, Metformin 1000 mg p.o. b.i.d., Humalog 20 units SC t.i.d., Lantus 120 units SC at bedtime, Xanax 0.5 mg p.o. at bedtime and Xyzal 5 mg p.o. daily. FAMILY HISTORY: Significant for hypertension and diabetes. SOCIAL HISTORY: The patient denies any toxic habits. REVIEW OF SYSTEMS: A 12-point review of systems is negative except as per HPI. PHYSICAL EXAMINATION: VITAL SIGNS: TM 100.4, TC 99.2, pulse 92, blood pressure 144/90, respiratory rate 20, oxygen saturation 97% on room air. GENERAL: Obese, nontoxic appearing man sitting up in bed in no apparent distress. HEENT: PERRL, EOMI. No scleral icterus. No conjunctival pallor. NECK: No JVD. No bruits. LUNGS: Clear to auscultation. CARDIOVASCULAR: Regular rate and rhythm. Normal S1, S2. No murmurs. ABDOMEN: Obese, normoactive bowel sounds, soft, nontender, nondistended. EXTREMITIES: Left foot with Anjel wrapping in place with erythema extending from the Anjel wrapping. NEUROLOGIC: Awake, alert and oriented x 3. No focal motor deficits. LABORATORY DATA: WBC 14.1 with 76% neutrophils, hemoglobin 9.9, hematocrit 30, platelets 208. Sodium 137, potassium 4.4, chloride 105, bicarb 23, BUN 21, creatinine 1.1, glucose 300. Blood cultures are pending. Wound cultures are pending. IMAGING STUDIES: 1. Chest x-ray demonstrated no active disease. 2. X-ray of the left foot demonstrated displaced fracture to the second metatarsal with soft tissue gas between the base of the 4th and 5th proximal phalanges but no radiographic evidence of osteomyelitis. 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 PLAN: 1. Sepsis secondary to left foot cellulitis. Continue with local wound care as per Dr. Menezes and the podiatric team. Input from Dr. Cote noted and the patient remains on Meropenem 1 g IV q. 8 hours and Vancomycin 1 g IV q. 12 hours. We will continue to monitor for fever and leukocytosis and await culture reports. 2. Insulin-dependent diabetes mellitus. Resume Levemir 120 units sc at bedtime, Humalog 20 units sc t.i.d. with meals and Metformin 1000 mg p.o. b.i.d. We will start high dose insulin sliding scale for coverage. 3. Hypertension. Resume Amlodipine 10 mg p.o. daily and Lisinopril 40 mg p.o. daily. 4. Severe PVD s/p right TMA. Continue Eliquis 5 mg p.o. b.i.d. and Lipitor 20 mg p.o. daily. 5. Hyperlipidemia. Continue Lipitor 20 mg p.o. daily. 6. Anxiety disorder. Continue Xanax 0.5 mg p.o. at bedtime. 7. COPD. Continue supplemental oxygen and bronchodilators as needed. 8. Prophylaxis. GI prophylaxis is not indicated as the patient is eating. DVT prophylaxis is not indicated as the patient remains on Eliquis. CODE STATUS: Full code. Rojelio Garzon MD Evangelist # [id number] KELSIE
[2018-10-16] MEDS ORDERED: Insulin Detemir 100 units/ml Vial (Levemir) SC SCH (22:00)
--- NOTE | 2018-10-17 03:18 | PN ---
DATE: 10/16/2018 SUBJECTIVE: The patient is seen in bed, in no acute distress. OBJECTIVE: VITAL SIGNS: Temperature is 99, blood pressure is 117/60, and respiratory rate of 18. HEENT: Unremarkable. NECK: Supple. LUNGS: Have decreased breath sounds. HEART: Normal S1 and S2. ABDOMEN: Soft and nontender. LABORATORY EXAMINATION: Reveals a white count of 14,000, hemoglobin of 9, and platelets of 208. Chemistries are noted. Urinalysis is noted. Microbiology reveals the blood cultures are negative and the foot cultures are Gram-positive cocci. REVIEW OF ORDERS: Reveal the patient to be on vancomycin and meropenem. ASSESSMENT AND PLAN: This is a 58-year-old male with diabetes mellitus, hypertension, high cholesterol, and arthritis, admitted now with leukocytosis, fevers and sepsis with a left foot cellulitis. The patient had an MRI as an outpatient last week, which was negative for osteomyelitis as per Dr. Menezes, on vancomycin and meropenem. We will check on the identification and sensitivity, Gram-positive cocci. We will follow with you. Renato Cote MD
[2018-10-17] MEDS: Albuterol-Ipratrop 3 mg / 0.5 (3 ml) UD IH SCH ×6 (03:28→23:18)
[2018-10-17] MEDS: Meropenem IV 1 gm in NS 1 GM/50 ML BAG IVPB SCH ×3 (05:08→21:36)
[2018-10-17 08:06] LABS: BASO # 0.03 K/mm3 (0.0-2.0); BASO % 0.2 % (0.0-3.0); EOS # 0.2 (0.0-0.7); EOS % 1.7 % (1.5-5.0); HEMOGLOBIN 10.2 g/dL (14.0-18.0); LYMPH % 14.6 % (22.0-35.0); MEAN CELL VOLUME 88.6 fl (80.0-105.0); MEAN CORPUSCULAR HGB CONC 32.7 g/dl (31.0-37.0); MEAN PLATELET VOLUME 10.2 fl (7.0-11.0); MONO # 1.1 (0.1-0.6); MONO % 7.8 % (1.0-6.0); RBC 3.52 10^6/uL (3.5-6.1); RED CELL DISTRIBUTION WIDTH 13.6 % (11.5-14.5); WHITE BLOOD COUNT 13.9 10^3/uL (4.5-11.0)
[2018-10-17 08:30] LABS: ALB/GLOB RATIO 1.2 (1.1-1.8); ALBUMIN 3.8 g/dL (3.0-4.8); ALT/SGPT 36 U/L (7-56); AST/SGOT 21 U/L (17-59); BLOOD UREA NITROGEN 23 mg/dL (7-21); CALCIUM 8.8 mg/dL (8.4-10.5); GFR NON-AFRICAN AMERICAN > 60
[2018-10-17] MEDS: Insulin Detemir 100 units/ml Vial (Levemir) SC SCH ×3 (08:33→21:36)
[2018-10-17] MEDS: Insulin Reg-HIGH-Coverage SC SCH ×4 (08:34→22:12)
[2018-10-17] MEDS: Insulin Lispro 1 UNITS/0.01 ML SC SCH ×3 (08:36→17:04)
[2018-10-17] MEDS: Vancomycin 1gm in NS 250ml 1 GM/250 ML BAG IVPB SCH ×2 (10:05→21:37)
--- NOTE | 2018-10-17 10:33 | PN ---
SUBJECTIVE: The patient was seen and examined at bedside on the general medical velez. No acute events overnight. He remains afebrile and hemodynamically stable. This morning he feels well and offers no complaints. OBJECTIVE: VITAL SIGNS: Temperature 98.4, pulse 99, blood pressure 147/63, respiratory rate 18, oxygen saturation 95% on room air. GENERAL: Obese, nontoxic-appearing man, sitting up in bed, in no apparent distress. HEENT: PERRL, EOMI. No scleral icterus. No conjunctival pallor. NECK: No JVD. No bruits. LUNGS: Clear to auscultation. CARDIOVASCULAR: Regular rate and rhythm. Normal S1, S2. No murmurs. ABDOMEN: Obese, normoactive bowel sounds, soft, nontender, nondistended. EXTREMITIES: Left foot with Anjel wrapping in place. NEUROLOGIC: Awake, alert and oriented x 3. No focal motor deficits. LABORATORY DATA: WBC 13.9 with 76% neutrophils, hemoglobin 10, hematocrit 31, platelets 230. Sodium 139, potassium 4.6, chloride 105, bicarb 24, BUN 23, creatinine 1.1, glucose 205. Blood cultures with no growth to date. Wound culture with gram-positive cocci. 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 PLAN: 1. Sepsis secondary to left foot cellulitis. Continue with local wound care as per Dr. Menezes and the podiatric team. Input by Dr. Cote noted and the patient remains on Meropenem 1 g IV q. 8 hours and Vancomycin 1 g IV q. 12 hours. We will continue to monitor for fever and leukocytosis and await culture reports. 2. Insulin-dependent diabetes mellitus. Continue Levemir 120 units sc qhs, Humalog 20 units sc t.i.d. with meals, Metformin 1000 mg p.o. b.i.d. and high dose insulin sliding scale for coverage. 3. Hypertension. Continue Amlodipine 10 mg p.o. daily and Lisinopril 40 mg p.o. daily. 4. Severe PVD s/p right TMA. Continue Eliquis 5 mg p.o. b.i.d. and Lipitor 20 mg p.o. daily. 5. Hyperlipidemia. Continue Lipitor 20 mg p.o. daily. 6. Anxiety disorder. Continue Xanax 0.5 mg p.o. at bedtime. 7. COPD. Continue supplemental oxygen and bronchodilators as needed. 8. Prophylaxis. GI prophylaxis not indicated as the patient is eating. DVT prophylaxis not indicated as he remains on Eliquis. CODE STATUS: Full code. Rojelio Garzon MD [facility] # [id number] MTDD
--- NOTE | 2018-10-17 10:59 | CP.PCM.PCO ---
Additional Comments - Additional Comments Additional Comments: Pt seen and examined at bedside. R lower ext with redness and swelling. R ft wound noted at the lateral aspect of the fifth MPJ with mixed fibrous and granular base and surrounding erythema,fracture blisters present at the fifth digit with red/purple discoloration to the digit; maceration in the fourth interspace 2/2 to fracture blistering. Podiatry collected new wound culture today. Pt on Merrem IV and Vanco IV per ID recs. Pt'e leukocytosis is improving. Will continue to monitor. ITS Impressions Chest X-Ray 10/15/18 11:20 IMPRESSION: No active disease. Foot X-Ray 10/15/18 11:24 IMPRESSION: No plain radiographic evidence of osteomyelitis. Displaced fracture 2nd metatarsal. Lisfranc injury of the foot as above. Soft tissue gas between the base of the 4th and 5th proximal phalanges. Please correlate with location of cutaneous ulcer. Lower Extremity CT 10/15/18 14:52 IMPRESSION: Laboratory Results - last 24 hr 10/16/18 10/16/18 10/16/18 11:19 15:39 20:50 WBC RBC Hgb Hct MCV MCH MCHC RDW Plt Count MPV Neut % (Auto) Lymph % (Auto) Steele % (Auto) Eos % (Auto) Baso % (Auto) Lymph # (Auto) Steele # (Auto) Eos # (Auto) Baso # (Auto) Absolute Neuts (auto) Sodium Potassium Chloride Carbon Dioxide Anion Gap BUN Creatinine Est GFR ( Amer) Est GFR (Non-Af Amer) POC Glucose (mg/dL) 328 H 280 H 249 H Random Glucose Calcium Total Bilirubin AST ALT Alkaline Phosphatase Total Protein Albumin Globulin Albumin/Globulin Ratio 10/17/18 10/17/18 10/17/18 06:39 08:00 08:00 WBC 13.9 H RBC 3.52 Hgb 10.2 L Hct 31.2 L MCV 88.6 MCH 29.0 MCHC 32.7 RDW 13.6 Plt Count 230 MPV 10.2 Neut % (Auto) 75.7 H Lymph % (Auto) 14.6 L Steele % (Auto) 7.8 H Eos % (Auto) 1.7 Baso % (Auto) 0.2 Lymph # (Auto) 2.0 Steele # (Auto) 1.1 H Eos # (Auto) 0.2 Baso # (Auto) 0.03 Absolute Neuts (auto) 10.54 H Sodium 139 Potassium 4.6 Chloride 105 Carbon Dioxide 24 Anion Gap 14 BUN 23 H Creatinine 1.1 Est GFR ( Amer) > 60 Est GFR (Non-Af Amer) > 60 POC Glucose (mg/dL) 205 H Random Glucose 205 H Calcium 8.8 Total Bilirubin 0.6 AST 21 ALT 36 Alkaline Phosphatase 100 Total Protein 7.1 Albumin 3.8 Globulin 3.3 Albumin/Globulin Ratio 1.2
--- NOTE | 2018-10-17 12:05 | CP.PCM.PN ---
<Seth Grimaldo - Last Filed: 10/17/18 12:02> Subjective - Date & Time of Evaluation Date of Evaluation: 10/17/18 Time of Evaluation: 12:02 - Subjective Subjective: Podiatry progress note - Drs. Carballo/Clif 58M see and evaluated at bedside with Dr. Carballo for L foot ulceration and fracture. Patient resting comfortably in bed. Has knee roller at bedside as well as crutches. Denies pain to the LE. Denies n/v/f/c today and has no other acute complaints. Drainage noted at the wound site through dressing. Objective - Vital Signs/Intake and Output Vital Signs (last 24 hours): Temp Pulse Resp BP Pulse Ox 98.4 F 99 H 18 141/69 95 10/17/18 06:00 10/17/18 06:00 10/17/18 06:00 10/17/18 10:06 10/17/18 06:00 Intake and Output: 10/17/18 10/17/18 06:59 18:59 Intake Total 240 Balance 240 - Medications Medications: Current Medications Acetaminophen (Tylenol 325mg Tab) 650 mg PO Q6H PRN PRN Reason: Headache Last Admin: 10/16/18 18:38 Dose: 650 mg Albuterol/Ipratropium (Duoneb 3 Mg/0.5 Mg (3 Ml) Ud) 3 ml IH [id number] [facility] Last Admin: 10/17/18 11:34 Dose: 3 ml Alprazolam (Xanax) 0.5 mg PO HS [facility]; Protocol Last Admin: 10/16/18 21:41 Dose: 0.5 mg Amlodipine Besylate (Norvasc) 10 mg PO DAILY [facility] Last Admin: 10/17/18 10:06 Dose: 10 mg Apixaban (Eliquis) 5 mg PO BID [facility]; Protocol Last Admin: 10/17/18 10:06 Dose: 5 mg Atorvastatin Calcium (Lipitor) 20 mg PO DAILY [facility] Last Admin: 10/17/18 10:06 Dose: 20 mg Meropenem (Merrem Iv 1 Gm Premix) 1 gm in 50 mls @ 100 mls/hr IVPB Q8 [facility]; Protocol Stop: 10/24/18 20:19 Last Admin: 10/17/18 05:08 Dose: 100 mls/hr Vancomycin HCl (Vancomycin 1gm) 1 gm in 250 mls @ 167 mls/hr IVPB Q12H [facility]; Protocol Stop: 10/24/18 20:31 Last Admin: 10/17/18 10:05 Dose: 167 mls/hr Insulin Detemir (Levemir) 60 unit SC AMHS [facility] Last Admin: 10/17/18 10:07 Dose: 60 units Insulin Human Lispro (Humalog) 20 units SC AC [facility] Last Admin: 10/17/18 08:36 Dose: 20 units Insulin Human Regular (Humulin R High) 0 units SC ACHS [facility]; Protocol Last Admin: 10/17/18 08:34 Dose: 4 units Lisinopril (Zestril) 40 mg PO DAILY [facility] Last Admin: 10/17/18 10:06 Dose: 40 mg Metformin HCl (Glucophage) 1,000 mg PO BID [facility] Last Admin: 10/17/18 10:06 Dose: 1,000 mg - Labs Labs: 10/17/18 08:00 10/17/18 08:00 PT 24.2 SECONDS (9.4-12.5) H 10/15/18 12:11 INR 2.14 10/15/18 12:11 APTT 42.6 Seconds (26.9-38.3) H 10/15/18 12:11 - Constitutional Appears: Non-toxic - Head Exam Head Exam: ATRAUMATIC - Extremities Exam Additional comments: LLE focused VASC: DP pulse faintly palpable, nonpalpable PT pulse; cap refill <3 seconds to digits; erythema and edema present to the foot globally; temp gradient warm to warm DERM: wound at the lateral aspect of the fifth MPJ noted with mixed fibrous and granular base and surrounding erythema, no depth, no tunneling, no malodor, no streaking; fracture blisters present at the fifth digit with purple discoloration to the digit; maceration in the fourth interspace 2/2 to fracture blistering ORTHO: no pain or tenderness on palpation of midfoot or digits NEURO: diminished - Neurological Exam Neurological Exam: Alert, Awake, Oriented x3 - Psychiatric Exam Psychiatric exam: Normal Affect Assessment and Plan - Assessment and Plan (Free Text) Assessment: 58M with 1) L foot chronic lisfranc fracture 2) L foot chronic healing wound Plan: Patient seen and evaluated with Dr. Arloro VSS, WBC 13.9 ID on board, continue IV medication L foot x-ray - lisfranc fracture present, fractures at bases of 2,3,4 metatarsals, no evidence of OM L foot CT - displaced transverse fracture through the base of the 2nd met; lisfranc dilocation at mets 3,4,5 relative to 3rd cuneiform and cuboid, lateral shift of metatarsals L foot MRI (10/02) - no evidence of OM Last LIYA/PVR reveals single vessel runoff Discussed with Dr. Saravia - no plan for further vascular intervention Patient refuses surgery for fractures/dislocation in L foot, will have fitting for bracing for left foot and ankle upon d/c PT eval ordered for ambulation quality using rollator and crutches Local wound care - bactroban, dry sterile dressing Posterior splint applied, QOD dressing change, can leave splint intact Will continue to follow <Rolf Carballo - Last Filed: 10/19/18 07:39> Objective - Vital Signs/Intake and Output Vital Signs (last 24 hours): Temp Pulse Resp BP Pulse Ox 99.7 F H 100 H 20 137/77 96 10/18/18 14:00 10/18/18 14:00 10/18/18 14:00 10/18/18 14:00 10/18/18 14:00 - Labs Labs: 10/18/18 06:45 10/18/18 06:45 PT 24.2 SECONDS (9.4-12.5) H 10/15/18 12:11 INR 2.14 10/15/18 12:11 APTT 42.6 Seconds (26.9-38.3) H 10/15/18 12:11 Attending/Attestation - Attestation I have personally seen and examined this patient.: Yes I have fully participated in the care of the patient.: Yes I have reviewed all pertinent clinical information, including history, physical exam and plan: Yes
[2018-10-17 22:16] VITALS: O2SAT 96
--- NOTE | 2018-10-18 01:08 | PN ---
DATE: 10/17/2018 SUBJECTIVE: The patient is seen in bed, in no acute distress, and nontoxic. OBJECTIVE: GENERAL: The patient is seen earlier this morning in 570, bed 2. VITAL SIGNS: Temperature of 98, blood pressure is 100, respiratory rate of 18, and heart rate of 100. HEENT: Unremarkable. NECK: Supple. LUNGS: Have decreased breath sounds. HEART: Normal S1 and S2. ABDOMEN: Soft and nontender. EXTREMITIES: Examination of the foot significant erythema and discharge and however improved. LABORATORY EXAMINATION: Reveals a white count of 13,900, hemoglobin of 10, BUN of 23, and creatinine of 1.1. Urinalysis is noted. Microbiology reveals Corynebacterium from the left foot culture and blood cultures are no growth. Repeat cultures are pending. REVIEW OF ORDERS: Reveal the patient to be on meropenem and vancomycin. ASSESSMENT AND PLAN: The patient is a 58-year-old male with diabetes mellitus, hypertension, high cholesterol, arthritis, admitted with leukocytosis, fevers, sepsis, and left foot cellulitis. MRI as outpatient was negative and currently on vancomycin and meropenem, waiting for wound culture and significant cellulitis. We will follow closely with you. Renato Cote MD
[2018-10-18] MEDS: Albuterol-Ipratrop 3 mg / 0.5 (3 ml) UD IH SCH ×4 (03:14→16:41)
[2018-10-18] MEDS: Meropenem IV 1 gm in NS 1 GM/50 ML BAG IVPB SCH ×2 (06:45→13:46)
[2018-10-18 07:09] LABS: BASO # 0.03 K/mm3 (0.0-2.0); BASO % 0.2 % (0.0-3.0); EOS # 0.4 (0.0-0.7); EOS % 2.8 % (1.5-5.0); HEMOGLOBIN 9.9 g/dL (14.0-18.0); LYMPH # 1.7 (1.2-3.4); LYMPH % 13.7 % (22.0-35.0); MEAN CELL VOLUME 88.2 fl (80.0-105.0); MEAN CORPUSCULAR HEMOGLOBIN 28.5 pg (25.0-35.0); MEAN CORPUSCULAR HGB CONC 32.4 g/dl (31.0-37.0); MEAN PLATELET VOLUME 10.3 fl (7.0-11.0); MONO # 1.4 (0.1-0.6); MONO % 10.8 % (1.0-6.0); RBC 3.47 10^6/uL (3.5-6.1); RED CELL DISTRIBUTION WIDTH 13.6 % (11.5-14.5); WHITE BLOOD COUNT 12.6 10^3/uL (4.5-11.0)
[2018-10-18 07:36] LABS: ALB/GLOB RATIO 1.1 (1.1-1.8); ALBUMIN 3.6 g/dL (3.0-4.8); ALT/SGPT 37 U/L (7-56); AST/SGOT 24 U/L (17-59); BLOOD UREA NITROGEN 22 mg/dL (7-21); GFR NON-AFRICAN AMERICAN > 60
[2018-10-18] MEDS: Insulin Lispro 1 UNITS/0.01 ML SC SCH ×3 (08:27→18:05)
[2018-10-18] MEDS: Insulin Reg-HIGH-Coverage SC SCH ×3 (08:27→18:05)
[2018-10-18 08:43] VITALS: RESP 20
--- NOTE | 2018-10-18 10:11 | PN ---
SUBJECTIVE: The patient was seen and examined at bedside on the general medical velez. No acute events overnight. He remains afebrile, hemodynamically stable and is demonstrating gradual clinical improvement. OBJECTIVE: VITAL SIGNS: Temperature 98.3, pulse 91, blood pressure 140/89, respiratory rate 20, oxygen saturation 96% on room air. GENERAL: Obese, nontoxic appearing man, sitting up in bed, in no apparent distress. HEENT: PERRL, EOMI. No scleral icterus. No conjunctival pallor. NECK: No JVD. No bruits. LUNGS: Clear to auscultation. CARDIOVASCULAR: Regular rate and rhythm. Normal S1, S2. No murmurs. ABDOMEN: Obese, normoactive bowel sounds, soft, nontender, nondistended. EXTREMITIES: No edema. Anjel wrapping in place to left lower extremity. NEUROLOGIC: Awake, alert and oriented x 3. No focal motor deficits. LABORATORY DATA: WBC 12.6 with 73% neutrophils, hemoglobin 10, hematocrit 31, platelets 223. Chemistry reviewed and unremarkable. Blood cultures negative. Wound culture with Corynebacterium species. ASSESSMENT: The patient is a 58-year-old man with multiple medical comorbidities including insulin-dependent diabetes mellitus and severe PVD s/p right TMA who was admitted for management of sepsis secondary to left foot cellulitis. PLAN: 1. Sepsis secondary to left foot cellulitis. Continue with local care as per Dr. Menezes. Input from Dr. Cote noted and the patient remains on Meropenem 1 g IV q. 8 hours and Vancomycin 1 g IV q. 12 hours. We will continue to monitor for fever and leukocytosis and await culture reports. 2. Insulin-dependent diabetes mellitus. Continue Levemir 120 units sc qhs. Humalog 20 units sc t.i.d. with meals, Metformin 1000 mg p.o. b.i.d. and high dose insulin sliding scale for coverage. 3. Hypertension. Continue Amlodipine 10 mg p.o. daily and Lisinopril 40 mg p.o. daily. 4. Severe PVD s/p right TMA. Continue Eliquis 5 mg p.o. b.i.d. and Lipitor 20 mg p.o. daily 5. Hyperlipidemia. Continue Lipitor 20 mg p.o. daily. 6. Anxiety disorder. Continue Xanax 0.5 mg p.o. at bedtime. 7. COPD. Continue supplemental oxygen and bronchodilators as needed. 8. Prophylaxis. GI prophylaxis not indicated as the patient is eating. DVT prophylaxis not indicated as he remains on Eliquis. CODE STATUS: Full code. Rojelio Garzon MD MTDD
[2018-10-18] MEDS: Insulin Detemir 100 units/ml Vial (Levemir) SC SCH (10:30)
[2018-10-18] MEDS: Vancomycin 1gm in NS 250ml 1 GM/250 ML BAG IVPB SCH (10:31)
--- NOTE | 2018-10-18 11:46 | CP.PCM.PCO ---
Additional Comments - Additional Comments Additional Comments: Pt seen and examined at bedside. In no acute distress. D/W Podiatry, pt is for possible R 5th toe amputation next week. He is currently on Merrem IV and Vanco IV per ID recs. Will continue to follow.
--- NOTE | 2018-10-18 12:18 | CP.PCM.PN ---
<Seth Grimaldo - Last Filed: 10/18/18 12:16> Subjective - Date & Time of Evaluation Date of Evaluation: 10/18/18 Time of Evaluation: 12:16 - Subjective Subjective: Podiatry progress note - Drs. Carballo/Clif 58M see and evaluated at bedside with Dr. Menezes for L foot ulceration and fracture. Patient resting comfortably in bed. Has knee roller at bedside as well as crutches. Denies pain to the LE. Denies n/v/f/c today and has no other acute complaints. Drainage noted at the wound site through dressing. Objective - Vital Signs/Intake and Output Vital Signs (last 24 hours): Temp Pulse Resp BP Pulse Ox 98.3 F 91 H 20 152/85 H 96 10/18/18 06:00 10/18/18 06:00 10/18/18 06:00 10/18/18 10:30 10/18/18 06:00 Intake and Output: 10/18/18 10/18/18 06:59 18:59 Intake Total 900 Balance 900 - Medications Medications: Current Medications Acetaminophen (Tylenol 325mg Tab) 650 mg PO Q6H PRN PRN Reason: Headache Last Admin: 10/16/18 18:38 Dose: 650 mg Albuterol/Ipratropium (Duoneb 3 Mg/0.5 Mg (3 Ml) Ud) 3 ml IH [id number] [facility] Last Admin: 10/18/18 08:01 Dose: 3 ml Alprazolam (Xanax) 0.5 mg PO HS [facility]EEK; Protocol Last Admin: 10/17/18 21:36 Dose: 0.5 mg Amlodipine Besylate (Norvasc) 10 mg PO DAILY [facility] Last Admin: 10/18/18 10:30 Dose: 10 mg Apixaban (Eliquis) 5 mg PO BID [facility]; Protocol Last Admin: 10/18/18 10:31 Dose: 5 mg Atorvastatin Calcium (Lipitor) 20 mg PO DAILY [facility] Last Admin: 10/18/18 10:30 Dose: 20 mg Docusate Sodium (Colace) 100 mg PO BID [facility] Last Admin: 10/18/18 10:30 Dose: 100 mg Meropenem (Merrem Iv 1 Gm Premix) 1 gm in 50 mls @ 100 mls/hr IVPB Q8 [facility]; Protocol Stop: 10/24/18 20:19 Last Admin: 10/18/18 06:45 Dose: 100 mls/hr Vancomycin HCl (Vancomycin 1gm) 1 gm in 250 mls @ 167 mls/hr IVPB Q12H [facility]; Protocol Stop: 10/24/18 20:31 Last Admin: 10/18/18 10:31 Dose: 167 mls/hr Insulin Detemir (Levemir) 60 unit SC AMHS [facility] Last Admin: 10/18/18 10:30 Dose: 60 units Insulin Human Lispro (Humalog) 20 units SC AC [facility] Last Admin: 10/18/18 12:14 Dose: 20 units Insulin Human Regular (Humulin R High) 0 units SC ACHS [facility]; Protocol Last Admin: 10/18/18 12:14 Dose: 4 units Lisinopril (Zestril) 40 mg PO DAILY [facility] Last Admin: 10/18/18 10:30 Dose: 40 mg Metformin HCl (Glucophage) 1,000 mg PO BID [facility] Last Admin: 10/18/18 10:30 Dose: 1,000 mg - Labs Labs: 10/18/18 06:45 10/18/18 06:45 PT 24.2 SECONDS (9.4-12.5) H 10/15/18 12:11 INR 2.14 10/15/18 12:11 APTT 42.6 Seconds (26.9-38.3) H 10/15/18 12:11 - Constitutional Appears: Non-toxic - Head Exam Head Exam: ATRAUMATIC - Extremities Exam Additional comments: LLE focused VASC: DP pulse faintly palpable, nonpalpable PT pulse; cap refill <3 seconds to digits; erythema and edema present to the foot globally; temp gradient warm to warm DERM: wound at the lateral aspect of the fifth MPJ noted with mixed fibrous and granular base and surrounding erythema, no depth, no tunneling, no malodor, no streaking; fracture blisters present at the fifth digit with purple discoloration to the digit; maceration in the fourth interspace 2/2 to fracture blistering ORTHO: no pain or tenderness on palpation of midfoot or digits NEURO: diminished - Neurological Exam Neurological Exam: Alert, Awake, Oriented x3 - Psychiatric Exam Psychiatric exam: Normal Affect Assessment and Plan - Assessment and Plan (Free Text) Assessment: 58M with 1) L foot chronic lisfranc fracture 2) L foot chronic healing wound 3) L fifth digit gangrenous changes vs fracture blister Plan: Patient seen and evaluated with Dr. Haris SERVIN, WBC 12.6 ID on board, continue IV medication L foot x-ray - lisfranc fracture present, fractures at bases of 2,3,4 metatarsals, no evidence of OM L foot CT - displaced transverse fracture through the base of the 2nd met; lisfranc dilocation at mets 3,4,5 relative to 3rd cuneiform and cuboid, lateral shift of metatarsals L foot MRI (10/02) - no evidence of OM Last LIYA/PVR reveals single vessel runoff Discussed with Dr. Saravia - no plan for further vascular intervention Patient refuses surgery for fractures/dislocation in L foot, will have fitting for bracing for left foot and ankle upon d/c PT eval ordered for ambulation quality using rollator and crutches Local wound care - xeroform in 4th interspace, gauze, light kerlix, splint Posterior splint applied, QOD dressing change, can leave splint intact and roll back dressing and change the site Will continue to follow <Liseth Menezes - Last Filed: 10/19/18 11:33> Objective - Vital Signs/Intake and Output Vital Signs (last 24 hours): Temp Pulse Resp BP Pulse Ox 99.7 F H 100 H 20 137/77 96 10/18/18 14:00 10/18/18 14:00 10/18/18 14:00 10/18/18 14:00 10/18/18 14:00 - Labs Labs: 10/18/18 06:45 10/18/18 06:45 PT 24.2 SECONDS (9.4-12.5) H 10/15/18 12:11 INR 2.14 10/15/18 12:11 APTT 42.6 Seconds (26.9-38.3) H 10/15/18 12:11 Attending/Attestation - Attestation I have personally seen and examined this patient.: Yes I have fully participated in the care of the patient.: Yes I have reviewed all pertinent clinical information, including history, physical exam and plan: Yes Notes (Text): 10/19/18 11:31 pt seen for Lis Franc fracture dislocaation of left foot; pt does not want surgery; pt with one vessel run-off and no by-pass options; discussion with p atient that the surgery may not heal and he could lose the limb; pt opted for conservative treatment with casting and followed by bracing; 5th toe is denuded - no necrosis as of yet - discuss with patient that he may lose the 5th toe; wound is unchanged fibrotic but not necrotic
[2018-10-18 15:12] VITALS: BP 137/77; PULSE 100; TEMP 99.7
--- NOTE | 2018-10-18 21:51 | PN ---
DATE: 10/18/2018 SUBJECTIVE: Patient is seen in room 570. His foot is much improved although still significant infection he says. PHYSICAL EXAMINATION: VITAL SIGNS: Temperature is 99.7, blood pressure is 137/77, respiratory rate of 20, heart rate of 91. HEENT: Unremarkable. NECK: Supple. LUNGS: Decreased breath sounds. HEART: Normal S1 and S2, ABDOMEN: Soft and nontender. LABORATORY DATA: Reveals a white count of 12.6, BUN of 22, creatinine of 1. Urinalysis is noted. Microbiology reveals Corynebacterium species with heavy growth. ASSESSMENT AND PLAN: A 58-year-old male with diabetes, hypertension, high cholesterol, arthritis, admitted with leukocytosis, and fevers. 1. Sepsis with a left foot cellulitis with Corynebacterium. Patient had an MRI, which was negative as outpatient. Currently, on vancomycin and meropenem. Patient's foot is improving although it is of concern. We will order a vancomycin trough level. Patient gets vancomycin at 08.30 in the morning. We will order a vancomycin trough level at 7.30 tomorrow morning, an hour before the next dose at 8.30. We will follow with you. Renato Cote MD
== END 2018-10-18 18:55 | DRG 872 ==
LOC: ED 11:00 → ERH 13:24 → 5RSO 15:40
PROVIDERS: ADMIT Student in an Organized Health Care Education/Training Program; ATTEND Student in an Organized Health Care Education/Training Program
DX: A41.9 Sepsis, unspecified organism (principal); L03.116 Cellulitis of left lower limb; Z68.41 Body mass index [BMI] 40.0-44.9, adult; E11.621 Type 2 diabetes mellitus with foot ulcer; M19.90 Unspecified osteoarthritis, unspecified site; J44.9 Chronic obstructive pulmonary disease, unspecified; E78.00 Pure hypercholesterolemia, unspecified; E11.40 Type 2 diabetes mellitus with diabetic neuropathy, unspecified; L08.9 Local infection of the skin and subcutaneous tissue, unspecified; E66.01 Morbid (severe) obesity due to excess calories; Z79.84 Long term (current) use of oral hypoglycemic drugs; Z79.01 Long term (current) use of anticoagulants; Z79.899 Other long term (current) drug therapy; Z79.4 Long term (current) use of insulin; M84.375A Stress fracture, left foot, initial encounter for fracture; Z86.718 Personal history of other venous thrombosis and embolism; I25.10 Atherosclerotic heart disease of native coronary artery without angina pectoris; F41.9 Anxiety disorder, unspecified; R50.9 Fever, unspecified; R00.0 Tachycardia, unspecified; D72.829 Elevated white blood cell count, unspecified; I12.9 Hypertensive chronic kidney disease with stage 1 through stage 4 chronic kidney disease, or unspecified chronic kidney disease; E11.51 Type 2 diabetes mellitus with diabetic peripheral angiopathy without gangrene; E78.5 Hyperlipidemia, unspecified; L97.529 Non-pressure chronic ulcer of other part of left foot with unspecified severity; E11.22 Type 2 diabetes mellitus with diabetic chronic kidney disease; N18.1 Chronic kidney disease, stage 1; Z88.0 Allergy status to penicillin; Z88.1 Allergy status to other antibiotic agents; Z98.1 Arthrodesis status; Z88.9 Allergy status to unspecified drugs, medicaments and biological substances

== ENCOUNTER 2018-10-18 18:58 | Inpatient (IN) | payer MEDICARE, OTHER ==
[2018-10-18] MEDS ORDERED: Vancomycin 1gm in NS 250ml 1 GM/250 ML BAG IVPB SCH (21:15)
[2018-10-18] MEDS: Albuterol-Ipratrop 3 mg / 0.5 (3 ml) UD IH SCH (21:30)
[2018-10-18] MEDS: Meropenem IV 1 gm in NS 1 GM/50 ML BAG IVPB SCH (22:00)
[2018-10-18] MEDS: Insulin Detemir 100 units/ml Vial (Levemir) SC SCH (22:04)
[2018-10-18] MEDS: Insulin Reg-HIGH-Coverage SC SCH (22:06)
[2018-10-19] MEDS: Albuterol-Ipratrop 3 mg / 0.5 (3 ml) UD IH SCH ×5 (04:00→20:22)
[2018-10-19] MEDS: Insulin Reg-HIGH-Coverage SC SCH ×4 (06:47→21:55)
[2018-10-19] MEDS: Meropenem IV 1 gm in NS 1 GM/50 ML BAG IVPB SCH (06:48)
[2018-10-19] MEDS: Insulin Lispro 1 UNITS/0.01 ML SC SCH ×3 (08:30→17:19)
[2018-10-19] MEDS: Vancomycin 1gm in NS 250ml 1 GM/250 ML BAG IVPB SCH ×2 (09:06→21:56)
[2018-10-19] MEDS: Insulin Detemir 100 units/ml Vial (Levemir) SC SCH ×2 (09:07→21:57)
--- NOTE | 2018-10-19 17:30 | PN ---
DATE: 10/19/2018 SUBJECTIVE: A 58-year-old diabetic male seen at bedside for continued evaluation and management of severe multi metatarsal fractures on his left foot as well as a increasingly gangrene left fifth digit. The patient is resting comfortably. He has been afebrile. He denies any fever, chills, nausea or vomiting. He states he has no pain. There is noted to be considerable drainage through the bandage. PHYSICAL EXAMINATION: VITAL SIGNS: Temperature 98.4, pulse rate of 103, blood pressure 144/77 and respiratory rate of 18. Most recent culture on the left foot reveals no organisms preliminarily. LABORATORY DATA: Reviewed. White count of 12.6, hemoglobin of 9.9, hematocrit of 30.6 and platelet count of 223. ESR is 97. MRI reveals no radiographic evidence of cortical destruction at the fifth metatarsophalangeal joint region to suggest any active osteomyelitis. CT scan of the left foot reveals displaced transverse fracture to be base of the second metatarsal and Lisfranc dislocation of the third, fourth, and fifth metatarsals relative to the third cuneiform and cuboid with the accompanying lateral shift of the metatarsals. OBJECTIVE: Nonpalpable posterior tibial pulse is noted bilaterally weekly palpable dorsalis pedis pulse is noted bilaterally, left foot presents with edema and erythema in the entire forefoot. Temperature greater than . There is noted to be an ulceration at the base of the lateral fifth metatarsophalangeal joint which has a mixture of fibrotic and granular base, there is noted to be surrounding edema. There is no malodor. There is no purulence. However, there is moderate amount of clear serous drainage. Fifth digit presents with darkish purple discoloration to the entire digit. There is noted to be severe maceration in the fourth interspace secondary to the foot fracture . There is no clinical signs of underlying abscess formation at this time. No signs of ascending cellulitis. ASSESSMENT: A 58-year-old diabetic male with left foot chronic Lisfranc fractures, chronic diabetic left foot ulceration in a now clinically gangrenous left fifth digit. PLAN: The patient was seen and evaluated, Dr. Cote's note was read and appreciated. The wound was cleansed with normal sterile saline and application of Xeroform, calcium alginate with silver and dry sterile dressing was applied. We will hold his Eliquis as he will need at least 5 days, discontinuation before surgical intervention can be attempted. At this point, the left fifth toe continues to become increasingly ischemic and gangrenous in nature. The ischemic and gangrenous changes have not demarcated. Dr. Saravia seen and evaluated with no plan for vascular intervention. We will continue to change his wound daily and keep him in the posterior splint. PT can be performed using rollator and crutches as tolerated. We will continue to monitor daily and await demarcation of the fifth digit for possible surgical intervention for amputation next week. Rolf Carballo DPM MTDD
--- NOTE | 2018-10-19 18:55 | CON ---
DATE: 10/19/2018 LOCATION: The patient was seen earlier this morning in room 304. CHIEF COMPLAINT: Left foot infection times several days. HISTORY OF PRESENT ILLNESS: A 58-year-old male with diabetes mellitus, hypertension, high cholesterol, arthritis, who was admitted with left foot infection for several days. The patient is seen by Dr. Menezes as outpatient and was admitted in acute care. The patient is now transferred to [facility]itional [facility]. REVIEW OF SYSTEMS: A 12-point review of systems is performed. PAST MEDICAL HISTORY: Significant for diabetes mellitus, hypertension, high cholesterol, arthritis, obesity, coronary artery disease and neuropathy. PAST SURGICAL HISTORY: Significant for right TMA, right foot surgery, tonsillectomy and back surgery. ALLERGIES: THE PATIENT IS ALLERGIC TO PENICILLIN AND TETRACYCLINE. MEDICATIONS: Reviewed. PHYSICAL EXAMINATION: GENERAL: The patient is in bed. VITAL SIGNS: Temperature of 98, blood pressure is 120/70 and respiratory rate 16. HEENT: Unremarkable. NECK: Supple. LUNGS: Decreased breath sounds. HEART: Normal, S1 and S2. ABDOMEN: Soft and nontender. EXTREMITIES: Examination of the foot reveals the patient's foot is much improved, although still significant amount of infection is present. LABORATORY DATA: Reveals the white count is from 18,000 to 12,000, hemoglobin of 9. Chemistry reveals the BUN of 22 and creatinine of 1.1. Urinalysis is noted. Microbiology reveals the patient's left foot cultures Corynebacterium from the 6th. The second one of gram-positive cocci is pending identification and sensitivity. ASSESSMENT: A 58-year-old male with diabetes mellitus, hypertension, high cholesterol and admitted with leukocytosis and fevers, sepsis, with a left foot cellulitis, organism is pending. The patient had an MRI as an outpatient, which was negative for osteomyelitis and currently on vancomycin. The patient had a vancomycin level, which was not drawn and was ordered and was supposed to be drawn this morning. REVIEW OF ORDERS: Reveals the patient to be on vancomycin. We will make another attempt of one ordering a vancomycin trough . The patient is supposed to have vancomycin at 10 a.m. We will order one for tomorrow at 9 a.m. We will follow closely with you. Renato Cote MD [facility] # [id number]
[2018-10-19] MEDS ORDERED: Vancomycin 1gm in NS 250ml 1 GM/250 ML BAG IVPB SCH (21:15)
--- NOTE | 2018-10-20 00:05 | HP ---
DATE OF EXAM: 10/19/2018 HISTORY OF PRESENT ILLNESS: The patient was initially admitted to the acute care facility for cellulitis on his left foot as well as gangrene on fifth toe. Currently, he has no complaints. There have been no acute events overnight and he was seen today by Dr. Cote of Infectious Disease. PHYSICAL EXAMINATION: HEENT: Negative. NECK: Supple. LUNGS: Clear bilaterally. HEART: Regular rate and rhythm. ABDOMEN: Benign. NEUROLOGIC: Intact. EXTREMITIES: This is cellulitis present on the foot. IMPRESSION: At this time: 1. Cellulitis of the foot. 2. Diabetes mellitus. PLAN: Continue current IV antibiotics as well as physical therapy. Deng Garzon MD
[2018-10-20] MEDS: Albuterol-Ipratrop 3 mg / 0.5 (3 ml) UD IH SCH ×6 (00:23→22:42)
[2018-10-20] MEDS: Insulin Reg-HIGH-Coverage SC SCH ×4 (07:01→21:54)
[2018-10-20] MEDS: Meropenem IV 1 gm in NS 1 GM/50 ML BAG IVPB SCH ×3 (08:07→21:58)
[2018-10-20] MEDS: Insulin Lispro 1 UNITS/0.01 ML SC SCH ×3 (08:33→17:44)
--- NOTE | 2018-10-20 09:19 | CP.PCM.PN ---
<Cyn Mcgill - Last Filed: 10/20/18 09:17> Subjective - Date & Time of Evaluation Date of Evaluation: 10/20/18 Time of Evaluation: 09:17 - Subjective Subjective: Podiatry progress note - Drs. Carballo/Clif 58M see and evaluated at bedside with Dr. Wolf for L foot ulceration and fracture. Patient resting comfortably in bed. Has knee roller at bedside as well as crutches. Denies pain to the LE. Denies n/v/f/c today and has no other acute complaints. Drainage noted at the wound site through dressing. Objective - Vital Signs/Intake and Output Vital Signs (last 24 hours): Temp Pulse Resp BP Pulse Ox 97.6 F 108 H 18 131/78 96 10/19/18 10:00 10/19/18 10:00 10/19/18 10:00 10/19/18 10:00 10/19/18 10:00 - Medications Medications: Current Medications Acetaminophen (Tylenol 325mg Tab) 650 mg PO Q6H PRN PRN Reason: Headache Last Admin: 10/20/18 07:15 Dose: 650 mg Albuterol/Ipratropium (Duoneb 3 Mg/0.5 Mg (3 Ml) Ud) 3 ml IH [id number] MEEK; Protocol Last Admin: 10/20/18 07:26 Dose: 3 ml Alprazolam (Xanax) 0.5 mg PO HS [facility]EEK; Protocol Last Admin: 10/19/18 22:01 Dose: Not Given Amlodipine Besylate (Norvasc) 10 mg PO DAILY [facility]; Protocol Last Admin: 10/19/18 09:07 Dose: 10 mg Atorvastatin Calcium (Lipitor) 20 mg PO DAILY [facility]; Protocol Last Admin: 10/19/18 09:07 Dose: 20 mg Vancomycin HCl (Vancomycin 1gm) 1 gm in 250 mls @ 167 mls/hr IVPB Q12 [facility]; Protocol Stop: 10/24/18 22:30 Last Admin: 10/19/18 21:56 Dose: 167 mls/hr Meropenem (Merrem Iv 1 Gm Premix) 1 gm in 50 mls @ 100 mls/hr IVPB Q8 [facility]EEK; Protocol Stop: 10/20/18 14:29 Last Admin: 10/20/18 08:07 Dose: 100 mls/hr Insulin Detemir (Levemir) 60 unit SC [facility]; Protocol Last Admin: 10/19/18 21:57 Dose: 60 u Insulin Human Lispro (Humalog) 20 units SC AC [facility]; Protocol Last Admin: 10/20/18 08:33 Dose: 20 units Insulin Human Regular (Humulin R High) 0 units SC ACHS [facility]; Protocol Last Admin: 10/20/18 07:01 Dose: Not Given Lisinopril (Zestril) 40 mg PO DAILY [facility]; Protocol Last Admin: 10/19/18 09:07 Dose: 40 mg Metformin HCl (Glucophage) 1,000 mg PO ACBD [facility]EEK; Protocol Last Admin: 10/20/18 07:00 Dose: 1,000 mg - Constitutional Appears: Well, Non-toxic, No Acute Distress - Head Exam Head Exam: ATRAUMATIC, NORMOCEPHALIC - Extremities Exam Additional comments: LLE focused VASC: DP pulse faintly palpable, nonpalpable PT pulse; cap refill <3 seconds to digits; erythema and edema present to the foot globally; temp gradient warm to warm DERM: wound at the lateral aspect of the fifth MPJ noted with mixed fibrous and granular base and surrounding erythema, no depth, no tunneling, no malodor, no streaking; fracture blisters present at the fifth digit with purple discolorati on to the digit; maceration in the fourth interspace 2/2 to fracture blistering ORTHO: no pain or tenderness on palpation of midfoot or digits NEURO: diminished - Neurological Exam Neurological Exam: Alert, Awake, Oriented x3 - Psychiatric Exam Psychiatric exam: Normal Affect, Normal Mood Assessment and Plan - Assessment and Plan (Free Text) Assessment: 58M with 1) L foot chronic lisfranc fracture 2) L foot chronic healing wound 3) L fifth digit gangrenous changes vs fracture blister Plan: Patient seen and evaluated with Dr. Haris SERVIN, WBC 12.6 (10/18) ID on board, continue IV medication L foot x-ray - lisfranc fracture present, fractures at bases of 2,3,4 metatarsals, no evidence of OM L foot CT - displaced transverse fracture through the base of the 2nd met; lisfranc dilocation at mets 3,4,5 relative to 3rd cuneiform and cuboid, lateral shift of metatarsals L foot MRI (10/02) - no evidence of OM Last LIYA/PVR reveals single vessel runoff Discussed with Dr. Saravia - no plan for further vascular intervention Patient refuses surgery for fractures/dislocation in L foot, will have fitting for bracing for left foot and ankle upon d/c Continue physical therapy Local wound care - Calcium Alginate in 4th interspace, gauze, light kerlix, splint Will continue to follow <Rolf Carballo - Last Filed: 10/22/18 10:48> Objective - Vital Signs/Intake and Output Vital Signs (last 24 hours): Temp Pulse Resp BP Pulse Ox 98.2 F 96 H 18 135/66 95 10/22/18 10:00 10/22/18 10:00 10/22/18 10:00 10/22/18 10:00 10/22/18 10:00 - Medications Medications: Current Medications Acetaminophen (Tylenol 325mg Tab) 650 mg PO Q6H PRN PRN Reason: Headache Last Admin: 10/21/18 21:43 Dose: 650 mg Albuterol/Ipratropium (Duoneb 3 Mg/0.5 Mg (3 Ml) Ud) 3 ml IH [id number] MEEK; Protocol Last Admin: 10/22/18 07:52 Dose: 3 ml Alprazolam (Xanax) 0.5 mg PO HS MEEK; Protocol Last Admin: 10/21/18 21:48 Dose: 0.5 mg Amlodipine Besylate (Norvasc) 10 mg PO DAILY [facility]; Protocol Last Admin: 10/21/18 10:35 Dose: 10 mg Atorvastatin Calcium (Lipitor) 20 mg PO DIN [facility]EEK; Protocol Last Admin: 10/21/18 17:50 Dose: 20 mg Vancomycin HCl (Vancomycin 1gm) 1 gm in 250 mls @ 167 mls/hr IVPB 0600,1800 [facility]; Protocol Stop: 10/24/18 22:30 Last Admin: 10/22/18 05:06 Dose: 167 mls/hr Meropenem (Merrem Iv 1 Gm Premix) 1 gm in 50 mls @ 100 mls/hr IVPB Q8 MEEK; Pro tocol Stop: 10/28/18 22:01 Last Admin: 10/22/18 05:06 Dose: 100 mls/hr Insulin Detemir (Levemir) 60 unit SC [facility]; Protocol Last Admin: 10/21/18 21:45 Dose: 60 u Insulin Human Lispro (Humalog) 20 units SC AC [facility]; Protocol Last Admin: 10/22/18 08:21 Dose: 20 units Insulin Human Regular (Humulin R High) 0 units SC [facility]; Protocol Last Admin: 10/22/18 06:36 Dose: Not Given Lisinopril (Zestril) 40 mg PO DAILY [facility]; Protocol Last Admin: 10/21/18 10:34 Dose: 40 mg Metformin HCl (Glucophage) 1,000 mg PO [facility]; Protocol Last Admin: 10/22/18 08:20 Dose: 1,000 mg - Labs Labs: 10/22/18 10:15 10/22/18 10:15 Attending/Attestation - Attestation I have personally seen and examined this patient.: Yes I have fully participated in the care of the patient.: Yes I have reviewed all pertinent clinical information, including history, physical exam and plan: Yes
--- NOTE | 2018-10-20 10:49 | PN ---
SUBJECTIVE: The patient was seen and examined at bedside on the TCU. No acute events overnight. He remains afebrile and hemodynamically stable. OBJECTIVE: VITAL SIGNS: Temperature 97.6, pulse 100, blood pressure 131/78, respiratory rate 18, oxygen saturation 96% on room air. GENERAL: Obese, nontoxic appearing man, sitting up in bed, in no apparent distress. HEENT: PERRL, EOMI. No scleral icterus. No conjunctival pallor. NECK: No JVD. LUNGS: Clear to auscultation. CARDIOVASCULAR: Regular rate and rhythm. Normal S1, S2. No murmurs. ABDOMEN: Obese, normoactive bowel sounds, soft, nontender, nondistended. EXTREMITIES: No edema. Najel wrapping in place to left lower extremity. NEUROLOGIC: Awake, alert and oriented x 3. No focal motor deficits. LABORATORY DATA: No new labs. Blood cultures with no growth to date. Wound culture with Corynebacterium. ASSESSMENT: The patient is a 58-year-old man with multiple medical comorbidities including insulin-dependent diabetes mellitus and severe PVD s/p right TMA who was admitted for management of sepsis secondary to left foot cellulitis. PLAN: 1. Sepsis secondary to left foot cellulitis. Continue with local care as per Dr. Menezes. Input from Dr. Cote noted and the patient remains on Meropenem 1 g IV q. 8 hours and Vancomycin 1 g IV q. 12 hours. We will continue to monitor for fever and leukocytosis. 2. Insulin-dependent diabetes mellitus. Continue Levemir 120 units sc qhs, Humalog 20 units sc t.i.d. with meals, Metformin 1000 mg p.o. b.i.d. and high dose insulin sliding scale for coverage. 3. Hypertension. Continue Amlodipine 10 mg p.o. daily and Lisinopril 40 mg p.o. daily. 4. Severe PVD s/p right TMA. Eliquis remains on hold in anticipation of possible OR. Continue Lipitor 20 mg p.o. daily. 5. Hyperlipidemia. Continue Lipitor 20 mg p.o. daily. 6. Anxiety disorder. Continue Xanax 0.5 mg p.o. at bedtime. 7. COPD. Continue supplemental oxygen and bronchodilators as needed. 8. Prophylaxis. GI prophylaxis not indicated as the patient is eating. DVT prophylaxis not indicated as he remains ambulatory. CODE STATUS: Full code. Rojelio Garzon MD [facility]
[2018-10-20] MEDS: Vancomycin 1gm in NS 250ml 1 GM/250 ML BAG IVPB SCH ×2 (11:39→18:25)
[2018-10-20] MEDS: Insulin Detemir 100 units/ml Vial (Levemir) SC SCH ×2 (11:40→21:59)
[2018-10-20] MEDS ORDERED: Meropenem IV 1 gm in NS 1 GM/50 ML BAG IVPB SCH (14:00)
[2018-10-20 19:01] VITALS: BMI 43.0
--- NOTE | 2018-10-20 23:48 | PN ---
DATE: 10/20/2018 SUBJECTIVE: The patient is in bed, no acute distress. PHYSICAL EXAMINATION VITAL SIGNS: Temperature is 97, blood pressure is 120/70, respiratory rate of 16. HEENT: Unremarkable. NECK: Supple. LUNGS: Decreased breath sounds. HEART: Normal S1, S2. ABDOMEN: Soft. LABORATORY EXAMINATION: Reveals the patient's creatinine of 1.0. ASSESSMENT AND PLAN: A 58-year-old male with diabetes, hypertension, high cholesterol, admitted with leukocytosis, fever, sepsis, and left foot cellulitis. MRI as an outpatient was negative for osteomyelitis and currently on meropenem. Will follow closely with you. The patient's vancomycin level 14.7 from this morning is noted. The vancomycin dosing is 1 g every 12 hours. Will follow closely with you. Renato Cote MD
[2018-10-21] MEDS: Albuterol-Ipratrop 3 mg / 0.5 (3 ml) UD IH SCH ×7 (00:30→23:08)
[2018-10-21] MEDS: Vancomycin 1gm in NS 250ml 1 GM/250 ML BAG IVPB SCH ×2 (05:04→17:50)
[2018-10-21] MEDS: Meropenem IV 1 gm in NS 1 GM/50 ML BAG IVPB SCH ×3 (05:05→21:44)
[2018-10-21] MEDS: Insulin Reg-HIGH-Coverage SC SCH ×4 (06:36→21:49)
[2018-10-21] MEDS: Insulin Lispro 1 UNITS/0.01 ML SC SCH ×3 (07:00→17:51)
[2018-10-21] MEDS: Insulin Detemir 100 units/ml Vial (Levemir) SC SCH ×2 (10:35→21:45)
--- NOTE | 2018-10-21 11:16 | CP.PCM.PN ---
<Cyn Mcgill - Last Filed: 10/21/18 11:14> Subjective - Date & Time of Evaluation Date of Evaluation: 10/21/18 Time of Evaluation: 11:14 - Subjective Subjective: Podiatry progress note - Drs. Carballo/Clif 58M see and evaluated at bedside for L foot ulceration and fracture. Patient resting comfortably in bed. Has knee roller at bedside as well as crutches. Denies pain to the LE. Denies n/v/f/c today and has no other acute complaints. Drainage noted at the wound site through dressing. Objective - Vital Signs/Intake and Output Vital Signs (last 24 hours): Temp Pulse Resp BP Pulse Ox 97.6 F 108 H 18 141/76 96 10/19/18 10:00 10/19/18 10:00 10/19/18 10:00 10/21/18 10:35 10/19/18 10:00 - Medications Medications: Current Medications Acetaminophen (Tylenol 325mg Tab) 650 mg PO Q6H PRN PRN Reason: Headache Last Admin: 10/20/18 22:47 Dose: 650 mg Albuterol/Ipratropium (Duoneb 3 Mg/0.5 Mg (3 Ml) Ud) 3 ml IH [id number] MEEK; Protocol Last Admin: 10/21/18 10:56 Dose: 3 ml Alprazolam (Xanax) 0.5 mg PO HS MEEK; Protocol Last Admin: 10/20/18 21:59 Dose: 0.5 mg Amlodipine Besylate (Norvasc) 10 mg PO DAILY [facility]; Protocol Last Admin: 10/21/18 10:35 Dose: 10 mg Atorvastatin Calcium (Lipitor) 20 mg PO DIN [facility]EEK; Protocol Vancomycin HCl (Vancomycin 1gm) 1 gm in 250 mls @ 167 mls/hr IVPB 0600,1800 [facility]; Protocol Stop: 10/24/18 22:30 Last Admin: 10/21/18 05:04 Dose: 167 mls/hr Meropenem (Merrem Iv 1 Gm Premix) 1 gm in 50 mls @ 100 mls/hr IVPB Q8 [facility]; Protocol Stop: 10/28/18 22:01 Last Admin: 10/21/18 05:05 Dose: 100 mls/hr Insulin Detemir (Levemir) 60 unit SC [facility]; Protocol Last Admin: 10/21/18 10:35 Dose: 60 u Insulin Human Lispro (Humalog) 20 units SC AC [facility]; Protocol Last Admin: 10/21/18 07:00 Dose: 20 units Insulin Human Regular (Humulin R High) 0 units SC ACHS [facility]; Protocol Last Admin: 10/21/18 06:36 Dose: Not Given Lisinopril (Zestril) 40 mg PO DAILY [facility]; Protocol Last Admin: 10/21/18 10:34 Dose: 40 mg Metformin HCl (Glucophage) 1,000 mg PO ACBD [facility]; Protocol Last Admin: 10/21/18 08:09 Dose: 1,000 mg - Constitutional Appears: Well, Non-toxic, No Acute Distress - Head Exam Head Exam: ATRAUMATIC, NORMOCEPHALIC - Extremities Exam Additional comments: LLE focused VASC: DP pulse faintly palpable, nonpalpable PT pulse; cap refill <3 seconds to digits; erythema and edema present to the foot globally; temp gradient warm to warm DERM: wound at the lateral aspect of the fifth MPJ noted with mixed fibrous and granular base and surrounding erythema, no depth, no tunneling, no malodor, no streaking; fracture blisters present at the fifth digit with dark gangrenous discoloration to the digit; maceration in the fourth interspace 2/2 to fracture blistering ORTHO: no pain or tenderness on palpation of midfoot or digits NEURO: diminished - Neurological Exam Neurological Exam: Alert, Awake, Oriented x3 - Psychiatric Exam Psychiatric exam: Normal Affect, Normal Mood Assessment and Plan - Assessment and Plan (Free Text) Assessment: 58M with 1) L foot chronic lisfranc fracture 2) L foot chronic healing wound 3) L fifth digit gangrenous changes vs fracture blister Plan: Patient seen and evaluated VSS, WBC 12.6 (/) ID on board, continue IV medication L foot x-ray - lisfranc fracture present, fractures at bases of 2,3,4 metatarsals, no evidence of OM L foot CT - displaced transverse fracture through the base of the 2nd met; lisfranc dilocation at mets 3,4,5 relative to 3rd cuneiform and cuboid, lateral shift of metatarsals L foot MRI (10/02) - no evidence of OM Last LIYA/PVR reveals single vessel runoff Discussed with Dr. Saravia - no plan for further vascular intervention Patient refuses surgery for fractures/dislocation in L foot, will have fitting for bracing for left foot and ankle upon d/c Continue physical therapy Local wound care - Calcium Alginate in 4th interspace, gauze, light kerlix, posterior splint Will continue to follow <Rolf Carballo - Last Filed: 10/22/18 10:45> Objective - Vital Signs/Intake and Output Vital Signs (last 24 hours): Temp Pulse Resp BP Pulse Ox 98.6 F 101 H 20 126/79 18 L 10/21/18 16:00 10/21/18 16:00 10/21/18 16:00 10/21/18 16:00 10/21/18 16:00 - Medications Medications: Current Medications Acetaminophen (Tylenol 325mg Tab) 650 mg PO Q6H PRN PRN Reason: Headache Last Admin: 10/21/18 21:43 Dose: 650 mg Albuterol/Ipratropium (Duoneb 3 Mg/0.5 Mg (3 Ml) Ud) 3 ml IH [id number] MEEK; Protocol Last Admin: 10/22/18 07:52 Dose: 3 ml Alprazolam (Xanax) 0.5 mg PO HS MEEK; Protocol Last Admin: 10/21/18 21:48 Dose: 0.5 mg Amlodipine Besylate (Norvasc) 10 mg PO DAILY [facility]; Protocol Last Admin: 10/21/18 10:35 Dose: 10 mg Atorvastatin Calcium (Lipitor) 20 mg PO DIN [facility]; Protocol Last Admin: 10/21/18 17:50 Dose: 20 mg Vancomycin HCl (Vancomycin 1gm) 1 gm in 250 mls @ 167 mls/hr IVPB 0600,1800 [facility]; Protocol Stop: 10/24/18 22:30 Last Admin: 10/22/18 05:06 Dose: 167 mls/hr Meropenem (Merrem Iv 1 Gm Premix) 1 gm in 50 mls @ 100 mls/hr IVPB Q8 [facility]; Protocol Stop: 10/28/18 22:01 Last Admin: 10/22/18 05:06 Dose: 100 mls/hr Insulin Detemir (Levemir) 60 unit SC [facility]; Protocol Last Admin: 10/21/18 21:45 Dose: 60 u Insulin Human Lispro (Humalog) 20 units SC [facility]; Protocol Last Admin: 10/22/18 08:21 Dose: 20 units Insulin Human Regular (Humulin R High) 0 units SC [facility]; Protocol Last Admin: 10/22/18 06:36 Dose: Not Given Lisinopril (Zestril) 40 mg PO DAILY [facility]; Protocol Last Admin: 10/21/18 10:34 Dose: 40 mg Metformin HCl (Glucophage) 1,000 mg PO [facility]; Protocol Last Admin: 10/22/18 08:20 Dose: 1,000 mg - Labs Labs: 10/22/18 10:15 Attending/Attestation - Attestation I have personally seen and examined this patient.: Yes I have fully participated in the care of the patient.: Yes I have reviewed all pertinent clinical information, including history, physical exam and plan: Yes
--- NOTE | 2018-10-21 11:39 | PN ---
DATE: 10/21/2018 SUBJECTIVE: The patient is in bed awake, alert. No fevers, no chills, tolerating the antibiotics well. PHYSICAL EXAMINATION: VITAL SIGNS: Temperature is 98, blood pressure is 150/90, respiratory rate of 18. HEENT: Unremarkable. NECK: Supple. LUNGS: Have decreased breath sounds. HEART: Normal S1, S2. ABDOMEN: Soft. LABORATORY EXAMINATION: Reviewed. ASSESSMENT AND PLAN: This is a 58-year-old male with diabetes, hypertension, high cholesterol, admitted with leukocytosis, fevers, sepsis with left foot cellulitis and he had an MRI as outpatient and is negative. Currently on vancomycin and meropenem. Vancomycin level of 14.7 from this morning. We will continue to follow with you. Renato Cote MD
[2018-10-22] MEDS: Albuterol-Ipratrop 3 mg / 0.5 (3 ml) UD IH SCH ×5 (00:09→20:06)
[2018-10-22] MEDS ORDERED: DiphenhydrAMINE 50 mg/ml Inj IVP STA ×2 (00:43→21:35)
[2018-10-22] MEDS: Meropenem IV 1 gm in NS 1 GM/50 ML BAG IVPB SCH ×3 (05:06→22:17)
[2018-10-22] MEDS: Vancomycin 1gm in NS 250ml 1 GM/250 ML BAG IVPB SCH ×2 (05:06→18:06)
[2018-10-22] MEDS: Insulin Reg-HIGH-Coverage SC SCH ×4 (06:36→22:47)
--- NOTE | 2018-10-22 08:04 | CP.PCM.PN ---
<Seth Grimaldo - Last Filed: 10/22/18 10:41> Subjective - Date & Time of Evaluation Date of Evaluation: 10/22/18 Time of Evaluation: 08:02 - Subjective Subjective: Podiatry progress note - Drs. Carballo/Clif 58M see and evaluated at bedside with Dr. Carballo for L foot ulceration and fracture. Patient resting comfortably in bed and denies any pain to the LE. Denies n/v/f/c today and has no other acute complaints. Drainage through dressing decreased. Objective - Vital Signs/Intake and Output Vital Signs (last 24 hours): Temp Pulse Resp BP Pulse Ox 98.6 F 101 H 20 126/79 18 L 10/21/18 16:00 10/21/18 16:00 10/21/18 16:00 10/21/18 16:00 10/21/18 16:00 - Medications Medications: Current Medications Acetaminophen (Tylenol 325mg Tab) 650 mg PO Q6H PRN PRN Reason: Headache Last Admin: 10/21/18 21:43 Dose: 650 mg Albuterol/Ipratropium (Duoneb 3 Mg/0.5 Mg (3 Ml) Ud) 3 ml IH [id number] MEEK; Protocol Last Admin: 10/22/18 07:52 Dose: 3 ml Alprazolam (Xanax) 0.5 mg PO HS [facility]; Protocol Last Admin: 10/21/18 21:48 Dose: 0.5 mg Amlodipine Besylate (Norvasc) 10 mg PO DAILY [facility]; Protocol Last Admin: 10/21/18 10:35 Dose: 10 mg Atorvastatin Calcium (Lipitor) 20 mg PO DIN [facility]; Protocol Last Admin: 10/21/18 17:50 Dose: 20 mg Vancomycin HCl (Vancomycin 1gm) 1 gm in 250 mls @ 167 mls/hr IVPB 0600,1800 [facility]; Protocol Stop: 10/24/18 22:30 Last Admin: 10/22/18 05:06 Dose: 167 mls/hr Meropenem (Merrem Iv 1 Gm Premix) 1 gm in 50 mls @ 100 mls/hr IVPB Q8 [facility]; Protocol Stop: 10/28/18 22:01 Last Admin: 10/22/18 05:06 Dose: 100 mls/hr Insulin Detemir (Levemir) 60 unit SC [facility]; Protocol Last Admin: 10/21/18 21:45 Dose: 60 u Insulin Human Lispro (Humalog) 20 units SC AC [facility]; Protocol Last Admin: 10/21/18 17:51 Dose: 20 units Insulin Human Regular (Humulin R High) 0 units SC ACHS [facility]; Protocol Last Admin: 10/22/18 06:36 Dose: Not Given Lisinopril (Zestril) 40 mg PO DAILY [facility]; Protocol Last Admin: 10/21/18 10:34 Dose: 40 mg Metformin HCl (Glucophage) 1,000 mg PO ACBD [facility]; Protocol Last Admin: 10/21/18 17:50 Dose: 1,000 mg - Constitutional Appears: Non-toxic - Head Exam Head Exam: ATRAUMATIC - Extremities Exam Additional comments: LLE focused VASC: DP pulse faintly palpable, nonpalpable PT pulse; cap refill <3 seconds to digits; erythema and edema present to the foot globally; temp gradient warm to warm DERM: wound at the lateral aspect of the fifth MPJ noted with mixed fibrous and granular base and surrounding erythema, no depth, no tunneling, no malodor, no streaking; fracture blisters present at the fifth digit with dark gangrenous discoloration to the digit; maceration in the fourth interspace 2/2 to fracture blistering ORTHO: no pain or tenderness on palpation of midfoot or digits NEURO: diminished - Neurological Exam Neurological Exam: Alert, Awake, Oriented x3 - Psychiatric Exam Psychiatric exam: Normal Affect Assessment and Plan - Assessment and Plan (Free Text) Assessment: 58M with 1) L foot chronic lisfranc fracture 2) L foot chronic healing wound 3) L fifth digit gangrenous changes vs fracture blister Plan: Patient seen and evaluated VSS, WBC 12.6 (5/) ID on board, continue IV medication L foot x-ray - lisfranc fracture present, fractures at bases of 2,3,4 metatarsals, no evidence of OM L foot CT - displaced transverse fracture through the base of the 2nd met; lisfranc dilocation at mets 3,4,5 relative to 3rd cuneiform and cuboid, lateral shift of metatarsals L foot MRI (10/02) - no evidence of OM Last LIYA/PVR reveals single vessel runoff Discussed with Dr. Saravia - no plan for further vascular intervention Patient refuses surgery for fractures/dislocation in L foot, will have fitting for bracing for left foot and ankle upon d/c Continue physical therapy Local wound care - Calcium Alginate in 4th interspace, gauze, light kerlix, posterior splint Possible plan for amputation of left fifth digit as color to digit is getting darker Will continue to follow <Rolf Carballo - Last Filed: 10/22/18 10:47> Objective - Vital Signs/Intake and Output Vital Signs (last 24 hours): Temp Pulse Resp BP Pulse Ox 98.6 F 101 H 20 126/79 18 L 10/21/18 16:00 10/21/18 16:00 10/21/18 16:00 10/21/18 16:00 10/21/18 16:00 - Medications Medications: Current Medications Acetaminophen (Tylenol 325mg Tab) 650 mg PO Q6H PRN PRN Reason: Headache Last Admin: 10/21/18 21:43 Dose: 650 mg Albuterol/Ipratropium (Duoneb 3 Mg/0.5 Mg (3 Ml) Ud) 3 ml IH [id number] MEEK; Protocol Last Admin: 10/22/18 07:52 Dose: 3 ml Alprazolam (Xanax) 0.5 mg PO HS [facility]EEK; Protocol Last Admin: 10/21/18 21:48 Dose: 0.5 mg Amlodipine Besylate (Norvasc) 10 mg PO DAILY [facility]; Protocol Last Admin: 10/21/18 10:35 Dose: 10 mg Atorvastatin Calcium (Lipitor) 20 mg PO DIN [facility]; Protocol Last Admin: 10/21/18 17:50 Dose: 20 mg Vancomycin HCl (Vancomycin 1gm) 1 gm in 250 mls @ 167 mls/hr IVPB 0600,1800 [facility]; Protocol Stop: 10/24/18 22:30 Last Admin: 10/22/18 05:06 Dose: 167 mls/hr Meropenem (Merrem Iv 1 Gm Premix) 1 gm in 50 mls @ 100 mls/hr IVPB Q8 [facility]; Protocol Stop: 10/28/18 22:01 Last Admin: 10/22/18 05:06 Dose: 100 mls/hr Insulin Detemir (Levemir) 60 unit SC [facility]; Protocol Last Admin: 10/21/18 21:45 Dose: 60 u Insulin Human Lispro (Humalog) 20 units SC [facility]; Protocol Last Admin: 10/22/18 08:21 Dose: 20 units Insulin Human Regular (Humulin R High) 0 units SC [facility]; Protocol Last Admin: 10/22/18 06:36 Dose: Not Given Lisinopril (Zestril) 40 mg PO DAILY [facility]; Protocol Last Admin: 10/21/18 10:34 Dose: 40 mg Metformin HCl (Glucophage) 1,000 mg PO [facility]; Protocol Last Admin: 10/22/18 08:20 Dose: 1,000 mg - Labs Labs: 10/22/18 10:15 Attending/Attestation - Attestation I have personally seen and examined this patient.: Yes I have fully participated in the care of the patient.: Yes I have reviewed all pertinent clinical information, including history, physical exam and plan: Yes
[2018-10-22] MEDS: Insulin Lispro 1 UNITS/0.01 ML SC SCH ×3 (08:21→18:06)
--- NOTE | 2018-10-22 09:06 | PN ---
SUBJECTIVE: The patient was seen and examined at bedside on the TCU. No acute events overnight. He remains afebrile and hemodynamically stable. He complains of a rash but denies dyspnea or stridor. OBJECTIVE: VITAL SIGNS: Temperature 98.6, pulse 100, blood pressure 126/79, respiratory rate 20, oxygen saturation 98% on room air. GENERAL: Obese, nontoxic appearing man, sitting up in bed, in no apparent distress. HEENT: PERRL, EOMI. No scleral icterus. No conjunctival pallor. NECK: No JVD. LUNGS: Clear to auscultation. CARDIOVASCULAR: Regular rate and rhythm. Normal S1, S2. No murmurs. ABDOMEN: Obese, normoactive bowel sounds, soft, nontender, nondistended. EXTREMITIES: No edema. Anjel wrapping in place to left lower extremity. NEUROLOGIC: Awake, alert and oriented x 3. No focal motor deficits. LABORATORY DATA: No new labs. ASSESSMENT: The patient is a 58-year-old man with multiple medical comorbidities including insulin-dependent diabetes mellitus and severe PVD s/p right TMA who was admitted for management of sepsis secondary to left foot cellulitis. PLAN: 1. Sepsis secondary to left foot cellulitis. Continue local wound care as per Dr. Menezes. Input from Dr. Cote noted and the patient remains on Vancomycin and Meropenem. 2. Insulin-dependent diabetes mellitus. Continue Levemir 120 units sc qhs, Humalog 20 units sc tid, Metformin 1000 mg p.o. bid and high dose insulin sliding scale for coverage. 3. Hypertension. Continue Amlodipine 10 mg p.o. daily and Lisinopril 40 mg p.o. daily. 4. Severe PVD s/p right TMA. Eliquis remains on hold in anticipation of OR. Continue Lipitor 20 mg p.o. daily. 5. Hyperlipidemia. Continue Lipitor 20 mg p.o. daily. 6. Anxiety disorder. Continue Xanax 0.5 mg p.o. at bedtime. 7. COPD. Continue supplemental oxygen and bronchodilators as needed. 8. Prophylaxis. GI prophylaxis not indicated as the patient is eating. DVT prophylaxis not indicated as he remains ambulatory. CODE STATUS: Full code. Rojelio Garzon MD [facility] # [id number] KELSIE
[2018-10-22 10:41] LABS: BASO # 0.05 K/mm3 (0.0-2.0); BASO % 0.4 % (0.0-3.0); EOS # 0.4 (0.0-0.7); HEMOGLOBIN 10.9 g/dL (14.0-18.0); LYMPH # 1.9 (1.2-3.4); LYMPH % 13.6 % (22.0-35.0); MEAN CELL VOLUME 89.7 fl (80.0-105.0); MEAN CORPUSCULAR HEMOGLOBIN 28.7 pg (25.0-35.0); MEAN PLATELET VOLUME 10.1 fl (7.0-11.0); MONO # 1.1 (0.1-0.6); MONO % 8.1 % (1.0-6.0); RBC 3.8 10^6/uL (3.5-6.1); RED CELL DISTRIBUTION WIDTH 13.6 % (11.5-14.5); WHITE BLOOD COUNT 14.1 10^3/uL (4.5-11.0)
[2018-10-22 10:47] LABS: BLOOD UREA NITROGEN 22 mg/dL (7-21); CALCIUM 9.5 mg/dL (8.4-10.5); GFR NON-AFRICAN AMERICAN > 60
[2018-10-22] MEDS: Insulin Detemir 100 units/ml Vial (Levemir) SC SCH ×2 (10:57→22:49)
--- NOTE | 2018-10-22 20:08 | PN ---
DATE: 10/22/2018 SUBJECTIVE: The patient is in bed in no acute distress, nontoxic. PHYSICAL EXAMINATION VITAL SIGNS: Temperature is 98, blood pressure is 135/60, respiratory of 18, heart rate of 101. HEENT: Unremarkable. NECK: Supple. LUNGS: Have decreased breath sounds. HEART: Normal S1, S2. ABDOMEN: Soft. LABORATORY EXAMINATION: Reveals a white count of 14,100, hemoglobin of 10, platelets of 326. BUN of 22, creatinine of 1.1. Toxicology is noted with a vancomycin trough of 14.7. REVIEW OF ORDERS: Reveals the vancomycin and meropenem to be active. ASSESSMENT AND PLAN: A 58-year-old male with diabetes and hypertension, high cholesterol, admitted with leukocytosis, fevers, sepsis with a left foot cellulitis and an MRI as outpatient is negative. On vancomycin, meropenem with a vancomycin level of 14.7. We will continue with the present course. Renato Cote MD
--- NOTE | 2018-10-22 21:37 | CP.PCM.PCO ---
<Angelica Malave - Last Filed: 10/23/18 03:41> Addendum Addendum: 10/22/18 21:36 OVERNIGHT RESIDENT NOTE ANGELICA MALAVE PGY1 I was paged by nursing staff in regards to this patient who has been having flushing, itchiness after receiving vancomycin treatments. I had placed a benadryl IVP order. <Michela Arrington - Last Filed: 10/23/18 06:13> Attending/Attestation - Attestation I have personally seen and examined this patient.: No I have fully participated in the care of the patient.: No I have reviewed all pertinent clinical information: No
[2018-10-23] MEDS: Albuterol-Ipratrop 3 mg / 0.5 (3 ml) UD IH SCH ×7 (04:39→23:11)
[2018-10-23] MEDS: Meropenem IV 1 gm in NS 1 GM/50 ML BAG IVPB SCH ×2 (05:05→13:29)
[2018-10-23] MEDS: Insulin Lispro 1 UNITS/0.01 ML SC SCH ×3 (06:35→17:43)
[2018-10-23] MEDS: Insulin Reg-HIGH-Coverage SC SCH ×4 (06:35→21:34)
[2018-10-23] MEDS: Vancomycin 1gm in NS 250ml 1 GM/250 ML BAG IVPB SCH ×2 (07:04→17:42)
[2018-10-23] MEDS: Insulin Detemir 100 units/ml Vial (Levemir) SC SCH ×2 (10:21→21:34)
--- NOTE | 2018-10-23 10:51 | PN ---
SUBJECTIVE: The patient was seen and examined at bedside on the TCU. No acute events overnight. He remains afebrile and hemodynamically stable. This morning he feels okay and offers no complaints. OBJECTIVE: VITAL SIGNS: Temperature 98.2, pulse 96, blood pressure 135/66, respiratory rate 18, oxygen saturation 95% on room air. GENERAL: Obese, nontoxic appearing man, sitting up in bed, in no apparent distress. HEENT: PERRL, EOMI. No scleral icterus. No conjunctival pallor. NECK: No JVD. LUNGS: Clear to auscultation. CARDIOVASCULAR: Regular rate and rhythm. S1 and S2. No murmurs. ABDOMEN: Obese. Normoactive bowel sounds. Soft, nontender, nondistended. EXTREMITIES: No edema. Anjel wrapping in place to left lower extremity. NEUROLOGIC: Awake, alert, and oriented x 3. No focal motor deficits. LABORATORY DATA: WBC 14 with 75% neutrophils, hemoglobin 11, hematocrit 34, platelets 326. Sodium 138, potassium 4.5, chloride 102, bicarb 29, BUN 22, creatinine 1.1, glucose 255. ASSESSMENT: The patient is a 58-year-old man with multiple medical comorbidities including insulin-dependent diabetes mellitus and severe PVD s/p right TMA who was admitted for management of sepsis secondary to left foot cellulitis. PLAN: 1. Sepsis secondary to left foot cellulitis. Continue with local care as per Dr. Menezes. Input from Dr. Cote noted and the patient remains on Vancomycin and Meropenem. 2. Insulin-dependent diabetes mellitus. Continue Levemir 120 units sc qhs, Humalog 20 units sc t.i.d., Metformin 1000 mg p.o. b.i.d. and high dose insulin sliding scale for coverage. 3. Hypertension. Continue Amlodipine 10 mg p.o. daily and Lisinopril 40 mg p.o. daily. 4. Severe PVD s/p right TMA. Eliquis remains on hold in anticipation of possible OR. Continue Lipitor 20 mg p.o. daily 5. Hyperlipidemia. Continue Lipitor 20 mg p.o. daily. 6. Anxiety disorder. Continue Xanax 0.5 mg p.o. at bedtime. 7. COPD. Continue supplemental oxygen and bronchodilators as needed. 8. Prophylaxis. GI prophylaxis not indicated as the patient is eating. DVT prophylaxis not indicated as he is ambulatory. CODE STATUS: Full Code. Rojelio Garzon MD [facility]
--- NOTE | 2018-10-23 11:12 | CP.PCM.PN ---
<Seth Grimaldo - Last Filed: 10/23/18 11:09> Subjective - Date & Time of Evaluation Date of Evaluation: 10/23/18 Time of Evaluation: 11:10 - Subjective Subjective: Podiatry progress note - Drs. Carballo/Clif 58M see and evaluated at bedside with Dr. Menezes for L foot ulceration and fracture. Patient resting comfortably in bed and denies any pain to the LE. Denies n/v/f/c today and has no other acute complaints. Drainage through dressing decreased. Objective - Vital Signs/Intake and Output Vital Signs (last 24 hours): Temp Pulse Resp BP Pulse Ox 98.2 F 96 H 18 146/84 95 10/22/18 10:00 10/22/18 10:00 10/22/18 10:00 10/23/18 10:20 10/22/18 10:00 - Medications Medications: Current Medications Acetaminophen (Tylenol 325mg Tab) 650 mg PO Q6H PRN PRN Reason: Headache Last Admin: 10/21/18 21:43 Dose: 650 mg Albuterol/Ipratropium (Duoneb 3 Mg/0.5 Mg (3 Ml) Ud) 3 ml IH [id number] MEEK; P rotocol Last Admin: 10/23/18 07:06 Dose: 3 ml Alprazolam (Xanax) 0.5 mg PO HS [facility]; Protocol Last Admin: 10/22/18 22:17 Dose: 0.5 mg Amlodipine Besylate (Norvasc) 10 mg PO DAILY [facility]; Protocol Last Admin: 10/23/18 10:20 Dose: 10 mg Atorvastatin Calcium (Lipitor) 20 mg PO DIN [facility]; Protocol Last Admin: 10/22/18 18:07 Dose: 20 mg Docusate Sodium (Colace) 100 mg PO BID [facility]EEK Last Admin: 10/23/18 10:21 Dose: 100 mg Vancomycin HCl (Vancomycin 1gm) 1 gm in 250 mls @ 167 mls/hr IVPB 0600,1800 [facility]; Protocol Stop: 10/24/18 22:30 Last Admin: 10/23/18 07:04 Dose: Not Given Meropenem (Merrem Iv 1 Gm Premix) 1 gm in 50 mls @ 100 mls/hr IVPB Q8 [facility]; Protocol Stop: 10/28/18 22:01 Last Admin: 10/23/18 05:05 Dose: 100 mls/hr Insulin Detemir (Levemir) 60 unit SC [facility]; Protocol Last Admin: 10/23/18 10:21 Dose: 60 u Insulin Human Lispro (Humalog) 20 units SC AC [facility]; Protocol Last Admin: 10/23/18 06:35 Dose: Not Given Insulin Human Regular (Humulin R High) 0 units SC ACHS [facility]; Protocol Last Admin: 10/23/18 06:35 Dose: Not Given Lisinopril (Zestril) 40 mg PO DAILY [facility]; Protocol Last Admin: 10/23/18 10:21 Dose: 40 mg Metformin HCl (Glucophage) 1,000 mg PO ACBD [facility]; Protocol Last Admin: 10/23/18 08:03 Dose: 1,000 mg - Labs Labs: 10/22/18 10:15 10/22/18 10:15 - Constitutional Appears: Non-toxic - Head Exam Head Exam: ATRAUMATIC - Extremities Exam Additional comments: LLE focused VASC: DP pulse faintly palpable, nonpalpable PT pulse; cap refill <3 seconds to digits; erythema and edema present to the foot globally; temp gradient warm to warm DERM: wound at the lateral aspect of the fifth MPJ noted with mixed fibrous and granular base and surrounding erythema, no depth, no tunneling, no malodor, no streaking; fracture blisters present at the fifth digit with dark gangrenous discoloration to the digit; maceration in the fourth interspace 2/2 to fracture blistering ORTHO: no pain or tenderness on palpation of midfoot or digits NEURO: diminished - Neurological Exam Neurological Exam: Alert, Awake, Oriented x3 - Psychiatric Exam Psychiatric exam: Normal Affect, Normal Mood Assessment and Plan - Assessment and Plan (Free Text) Assessment: 58M with 1) L foot chronic lisfranc fracture 2) L foot chronic healing wound 3) L fifth digit gangrenous changes vs fracture blister Plan: Patient seen and evaluated VSS, WBC 14.1 (10/22) ID on board, continue IV medication L foot x-ray - lisfranc fracture present, fractures at bases of 2,3,4 metatarsals, no evidence of OM L foot CT - displaced transverse fracture through the base of the 2nd met; lisfranc dilocation at mets 3,4,5 relative to 3rd cuneiform and cuboid, lateral shift of metatarsals L foot MRI (10/02) - no evidence of OM Last LIYA/PVR reveals single vessel runoff New LIYA/PVR for left foot ordered today Patient refuses surgery for fractures/dislocation in L foot, will have fitting for bracing for left foot and ankle upon d/c Continue physical therapy Local wound care - Calcium Alginate in 4th interspace, gauze, light kerlix, posterior splint Patient for left fifth digit amputation and possible metatarsal head resection tomorrow at 1:30PM NPO order placed Will continue to follow <Liseth Menezes - Last Filed: 10/28/18 17:54> Objective - Vital Signs/Intake and Output Vital Signs (last 24 hours): Temp Pulse Resp BP Pulse Ox 98.3 F 95 H 18 135/81 93 L 10/25/18 16:00 10/25/18 16:00 10/25/18 16:00 10/25/18 16:00 10/25/18 16:00 - Labs Labs: 10/25/18 06:40 10/22/18 10:15 Attending/Attestation - Attestation I have personally seen and examined this patient.: Yes I have fully participated in the care of the patient.: Yes I have reviewed all pertinent clinical information, including history, physical exam and plan: Yes
--- NOTE | 2018-10-23 15:32 | US ---
PROCEDURE: Lower extremity LIYA exam HISTORY: Peripheral vascular disease. Diabetes. Previous right toe amputations. PHYSICIAN(S): Lonnie Saravia MD. FINDINGS: The resting LIYA's are likely inaccurate due to calcified vessels: Right, 1.13 and left, 1.01 The brachial systolic pressures are symmetric. The high thigh pressures are noncompressible. The high thigh PVR waveforms are normal and symmetric. The right calf PVR waveform is relatively normal. The left calf PVR waveform is slightly decreased in amplitude compared to the right. This could represent subtle left SFA occlusive disease. The ankle and metatarsal waveforms are moderately blunted, greater on the left than the right. This is consistent with bilateral popliteal, trifurcation, and/or tibial disease. IMPRESSION: 1. Limited study due to calcified vessels. 2. Bilateral popliteal, trifurcation, and/or tibial disease. 3. Possible left SFA occlusive disease
--- NOTE | 2018-10-23 20:47 | CARD ---
APPROVED REPORT Date of service: 10/23/2018 EKG Measurement Heart [id number] <Conclusion> Sinus tachycardia Nonspecific T wave abnormality Abnormal ECG
--- NOTE | 2018-10-23 20:49 | PN ---
DATE: 10/23/2018 SUBJECTIVE: The patient is in bed, in no acute distress. He complained of itching and he is not sure which antibiotic caused the itching. PHYSICAL EXAMINATION: VITAL SIGNS: Temperature is 98, blood pressure is 104/70, respirations 16. HEENT: Unremarkable. NECK: Supple. LUNGS: Have decreased breath sounds. HEART: Normal S1 and S2. ABDOMEN: Soft. LABORATORY DATA: Laboratory examination reveals a white count of 14,000. Chemistries are noted. Review of cultures reveals left leg culture with Enterococcus faecalis. THE PATIENT IS ALLERGIC TO PENICILLIN, TETRACYCLINES. Review of the patient's medications reveals the patient is not on SSRIs and the patient's medications at home also were reviewed. ASSESSMENT AND PLAN: A 58-year-old male with diabetes, hypertension, high cholesterol, admitted with leukocytosis, fevers, sepsis, left foot cellulitis and an MRI as outpatient negative. Questionable itching pruritus with vancomycin and meropenem, etiology of which is not clear. THE PATIENT IS ALLERGIC TO PENICILLIN AND TETRACYCLINE. We discontinued both vancomycin and meropenem and use Zyvox 600 mg p.o. b.i.d. Renato Cote MD
[2018-10-24] MEDS: Albuterol-Ipratrop 3 mg / 0.5 (3 ml) UD IH SCH ×6 (00:23→20:10)
[2018-10-24] MEDS: Insulin Reg-HIGH-Coverage SC SCH ×4 (06:30→22:12)
[2018-10-24] MEDS: Insulin Lispro 1 UNITS/0.01 ML SC SCH ×3 (06:30→17:00)
--- NOTE | 2018-10-24 09:53 | PN ---
DATE: 10/24/2018 SUBJECTIVE: The patient is seen in bed, in no acute distress, nontoxic. He states his itching has stopped. He is doing much better this morning, tolerating the antibiotics. PHYSICAL EXAMINATION: VITAL SIGNS: Temperature is 98, blood pressure is 135/66, respiratory rate 20 and heart rate of 82. HEENT: Unremarkable. NECK: Supple. LUNGS: Have decreased breath sounds. HEART: Normal, S1 and S2. ABDOMEN: Soft and nontender. LABORATORY DATA: Reveals a white count of 14,100, hemoglobin of 10 and platelets of 326. Chemistries are noted. Creatinine is 1.1. ASSESSMENT AND PLAN: This is a 58-year-old male with diabetes mellitus, hypertension, high cholesterol admitted with leukocytosis, fevers and sepsis with a left foot cellulitis. He had an MRI as an outpatient which was negative. HE IS ALLERGIC TO PENICILLIN AND TETRACYCLINE. Currently on Zyvox, tolerating the medications well. The cultures on the left leg with the enterococcus and left foot from Corynebacterium. We will follow with you. Renato Cote MD
--- NOTE | 2018-10-24 09:57 | CP.PCM.PN ---
Subjective - Date & Time of Evaluation Date of Evaluation: 10/24/18 Time of Evaluation: 09:52 - Subjective Subjective: Podiatry progress note - Drs. Carballo/Clif 58M see and evaluated at bedside with Dr. Menezes for L foot ulceration and fracture. Patient resting comfortably in bed and denies any pain to the LE. Denies n/v/f/c today and has no other acute complaints. Patient had been on for surgery today however Dr. Saravia reported patient needs angio for blood flow, patient understanding, agrees. Diet restarted this morning. Objective - Vital Signs/Intake and Output Vital Signs (last 24 hours): Temp Pulse Resp BP Pulse Ox 98 F 105 H 20 146/84 93 L 10/23/18 10:00 10/23/18 10:00 10/23/18 10:00 10/23/18 10:20 10/23/18 10:00 - Medications Medications: Current Medications Acetaminophen (Tylenol 325mg Tab) 650 mg PO Q6H PRN PRN Reason: Headache Last Admin: 10/23/18 21:10 Dose: 650 mg Albuterol/Ipratropium (Duoneb 3 Mg/0.5 Mg (3 Ml) Ud) 3 ml IH [id number] MEEK; Protocol Last Admin: 10/24/18 07:07 Dose: 3 ml Alprazolam (Xanax) 0.5 mg PO HS [facility]; Protocol Last Admin: 10/23/18 21:11 Dose: 0.5 mg Amlodipine Besylate (Norvasc) 10 mg PO DAILY [facility]; Protocol Last Admin: 10/23/18 10:20 Dose: 10 mg Atorvastatin Calcium (Lipitor) 20 mg PO DIN [facility]; Protocol Last Admin: 10/23/18 17:43 Dose: 20 mg Docusate Sodium (Colace) 100 mg PO BID [facility]EEK Last Admin: 10/23/18 17:43 Dose: 100 mg Insulin Detemir (Levemir) 60 unit SC [facility]; Protocol Last Admin: 10/23/18 21:34 Dose: Not Given Insulin Human Lispro (Humalog) 20 units SC AC [facility]; Protocol Last Admin: 10/24/18 06:30 Dose: Not Given Insulin Human Regular (Humulin R High) 0 units SC ACHS [facility]; Protocol Last Admin: 10/24/18 06:30 Dose: Not Given Linezolid (Zyvox) 600 mg PO BID [facility]; Protocol Stop: 11/01/18 18:01 Last Admin: 10/24/18 00:29 Dose: 600 mg Lisinopril (Zestril) 40 mg PO DAILY [facility]; Protocol Last Admin: 10/23/18 10:21 Dose: 40 mg Metformin HCl (Glucophage) 1,000 mg PO ACBD [facility]; Protocol Last Admin: 10/23/18 17:43 Dose: 1,000 mg - Labs Labs: 10/22/18 10:15 10/22/18 10:15 - Constitutional Appears: Non-toxic - Head Exam Head Exam: ATRAUMATIC - Extremities Exam Additional comments: LLE focused VASC: DP pulse faintly palpable, nonpalpable PT pulse; cap refill <3 seconds to digits; erythema and edema present to the foot globally; temp gradient warm to warm DERM: wound at the lateral aspect of the fifth MPJ noted with mixed fibrous and granular base and surrounding erythema, no depth, no tunneling, no malodor, no streaking; fracture blisters present at the fifth digit with dark gangrenous di scoloration to the digit; maceration in the fourth interspace 2/2 to fracture blistering ORTHO: no pain or tenderness on palpation of midfoot or digits NEURO: diminished - Neurological Exam Neurological Exam: Alert, Awake, Oriented x3 - Psychiatric Exam Psychiatric exam: Normal Affect Assessment and Plan - Assessment and Plan (Free Text) Assessment: 58M with 1) L foot chronic lisfranc fracture 2) L foot chronic healing wound 3) L fifth digit gangrenous changes vs fracture blister Plan: Patient seen and evaluated with Dr. Menezes VSS, WBC 14.1 (10/22) ID on board, continue IV medication L foot x-ray - lisfranc fracture present, fractures at bases of 2,3,4 metatarsals, no evidence of OM L foot CT - displaced transverse fracture through the base of the 2nd met; lisfranc dilocation at mets 3,4,5 relative to 3rd cuneiform and cuboid, lateral shift of metatarsals L foot MRI (10/02) - no evidence of OM LIYA/PVR - calcified vessels, b/l popliteal, trifurcation, tibial disease, possible left SFA occlusive disease Patient refuses surgery for fractures/dislocation in L foot, will have fitting for bracing for left foot and ankle upon d/c Continue physical therapy Local wound care - betadine to fifth digit and surrounding maceration, DSD, posterior splint Patients surgery cancelled for today, to go for vascular intervention with Dr. Saravia this week, will reschedule surgery pending Dr. Saravia recs Will continue to follow
[2018-10-24] MEDS: Insulin Detemir 100 units/ml Vial (Levemir) SC SCH ×2 (10:03→22:16)
[2018-10-24 12:58] LABS: BASO # 0.05 K/mm3 (0.0-2.0); BASO % 0.4 % (0.0-3.0); EOS # 0.4 (0.0-0.7); HEMOGLOBIN 10.3 g/dL (14.0-18.0); LYMPH # 1.7 (1.2-3.4); LYMPH % 14.8 % (22.0-35.0); MEAN CELL VOLUME 90.1 fl (80.0-105.0); MEAN CORPUSCULAR HEMOGLOBIN 28.4 pg (25.0-35.0); MEAN CORPUSCULAR HGB CONC 31.5 g/dl (31.0-37.0); MEAN PLATELET VOLUME 9.9 fl (7.0-11.0); MONO # 0.6 (0.1-0.6); MONO % 5.2 % (1.0-6.0); RBC 3.63 10^6/uL (3.5-6.1); RED CELL DISTRIBUTION WIDTH 13.5 % (11.5-14.5); WHITE BLOOD COUNT 11.6 10^3/uL (4.5-11.0)
--- NOTE | 2018-10-24 12:59 | PN ---
SUBJECTIVE: The patient was seen and examined at bedside on the TCU. No acute events overnight. He remains afebrile and hemodynamically stable. OBJECTIVE: VITAL SIGNS: Temperature 98, pulse 100, blood pressure 140/84, respiratory rate 20, oxygen saturation 95% on room air. GENERAL: Obese, nontoxic appearing man, sitting up in bed in no apparent distress. HEENT: PERRL, EOMI. No scleral icterus. No conjunctival pallor. NECK: No JVD. LUNGS: Clear to auscultation. CARDIOVASCULAR: Regular rate and rhythm. Normal S1, S2. No murmurs. ABDOMEN: Obese, normoactive bowel sounds, soft, nontender, nondistended. EXTREMITIES: No edema. Anjel wrapping in place to left lower extremity. NEUROLOGIC: Awake, alert and oriented x 3. No focal motor deficits. LABORATORY DATA: No new labs. ASSESSMENT: The patient is a 58-year-old man with multiple medical comorbidities including insulin-dependent diabetes mellitus and severe PVD s/p right TMA who was admitted for management of sepsis secondary to left foot cellulitis. PLAN: 1. Sepsis secondary to left foot cellulitis, resolving. Continue with local care as per Dr. Menezes. Input from Dr. Cote noted and the patient remains on Linezolid 600 mg p.o. b.i.d. 2. Insulin-dependent diabetes mellitus. Continue Levemir 120 units sc qhs, Humalog 20 units sc t.i.d., Metformin 1000 mg p.o. b.i.d. and high dose insulin sliding scale for coverage. 3. Hypertension. Continue Amlodipine 10 mg p.o. daily and Lisinopril 40 mg p.o. daily. 4. Severe PVD s/p right TMA. Eliquis remains on hold in anticipation of possible OR. Continue Lipitor 20 mg p.o. daily. 5. Hyperlipidemia. Continue Lipitor 20 mg p.o. daily. 6. Anxiety disorder. Continue Xanax 0.5 mg p.o. at bedtime. 7. COPD. Continue supplemental oxygen and bronchodilators as needed. 8. Prophylaxis. GI prophylaxis not indicated as the patient is eating. DVT prophylaxis not indicated as the patient is ambulatory. CODE STATUS: Full code. Rojelio Garzon MD [facility]
[2018-10-25] MEDS: Albuterol-Ipratrop 3 mg / 0.5 (3 ml) UD IH SCH ×7 (01:07→22:53)
[2018-10-25] MEDS: Insulin Reg-HIGH-Coverage SC SCH ×4 (06:30→22:03)
[2018-10-25 07:03] LABS: BASO # 0.07 K/mm3 (0.0-2.0); BASO % 0.5 % (0.0-3.0); EOS # 0.8 (0.0-0.7); EOS % 5.4 % (1.5-5.0); LYMPH # 2.7 (1.2-3.4); LYMPH % 19.6 % (22.0-35.0); MEAN CELL VOLUME 90.1 fl (80.0-105.0); MEAN CORPUSCULAR HEMOGLOBIN 28.1 pg (25.0-35.0); MEAN CORPUSCULAR HGB CONC 31.2 g/dl (31.0-37.0); MEAN PLATELET VOLUME 10.1 fl (7.0-11.0); MONO % 6.8 % (1.0-6.0); RBC 3.92 10^6/uL (3.5-6.1); RED CELL DISTRIBUTION WIDTH 13.7 % (11.5-14.5); WHITE BLOOD COUNT 13.9 10^3/uL (4.5-11.0)
[2018-10-25] MEDS: Insulin Lispro 1 UNITS/0.01 ML SC SCH ×3 (08:21→17:31)
[2018-10-25] MEDS: Insulin Detemir 100 units/ml Vial (Levemir) SC SCH ×2 (09:40→22:03)
--- NOTE | 2018-10-25 10:13 | CP.PCM.PN ---
Subjective - Date & Time of Evaluation Date of Evaluation: 10/25/18 Time of Evaluation: 10:10 - Subjective Subjective: Podiatry Progress Note: Dr. Menezes 58M patient seen and examined at bedside with Dr. Menezes for L 5th digit gangrenous changes. Patient resting comfortably and in NAD. He continues to remain NWB to the L foot at this time in posterior splint. Denies nausea/vomiting fever. Patient aware of plan for OR Monday. Objective - Vital Signs/Intake and Output Vital Signs (last 24 hours): Temp Pulse Resp BP Pulse Ox 98.2 F 103 H 20 139/81 97 10/24/18 16:00 10/24/18 16:00 10/24/18 16:00 10/25/18 09:40 10/24/18 16:00 - Medications Medications: Current Medications Acetaminophen (Tylenol 325mg Tab) 650 mg PO Q6H PRN PRN Reason: Headache Last Admin: 10/23/18 21:10 Dose: 650 mg Albuterol/Ipratropium (Duoneb 3 Mg/0.5 Mg (3 Ml) Ud) 3 ml IH [id number] [facility]; Protocol Last Admin: 10/25/18 07:27 Dose: 3 ml Alprazolam (Xanax) 0.5 mg PO HS [facility]; Protocol Last Admin: 10/24/18 22:19 Dose: Not Given Amlodipine Besylate (Norvasc) 10 mg PO DAILY [facility]; Protocol Last Admin: 10/25/18 09:40 Dose: 10 mg Atorvastatin Calcium (Lipitor) 20 mg PO DIN [facility]; Protocol Last Admin: 10/24/18 17:39 Dose: 20 mg Docusate Sodium (Colace) 100 mg PO BID [facility] Last Admin: 10/25/18 09:40 Dose: 100 mg Insulin Detemir (Levemir) 60 unit SC AMHS [facility]; Protocol Last Admin: 10/25/18 09:40 Dose: 60 u Insulin Human Lispro (Humalog) 20 units SC AC [facility]; Protocol Last Admin: 10/25/18 08:21 Dose: 20 units Insulin Human Regular (Humulin R High) 0 units SC ACHS [facility]; Protocol Last Admin: 10/25/18 06:30 Dose: Not Given Linezolid (Zyvox) 600 mg PO BID [facility]; Protocol Stop: 11/01/18 18:01 Last Admin: 10/25/18 09:39 Dose: 600 mg Lisinopril (Zestril) 40 mg PO DAILY [facility]; Protocol Last Admin: 10/25/18 09:39 Dose: 40 mg Metformin HCl (Glucophage) 1,000 mg PO ACBD [facility]; Protocol Last Admin: 10/25/18 06:32 Dose: 1,000 mg - Labs Labs: 10/25/18 06:40 10/22/18 10:15 - Constitutional Appears: Non-toxic, No Acute Distress - Head Exam Head Exam: ATRAUMATIC, NORMOCEPHALIC - Eye Exam Eye Exam: Normal appearance - Extremities Exam Additional comments: LLE focused VASC: DP pulse faintly palpable, nonpalpable PT pulse; cap refill <3 seconds to digits; erythema and edema present to the foot globally; temp gradient warm to warm DERM: wound at the lateral aspect of the fifth MPJ noted with mixed fibrous and granular base and surrounding erythema, no depth, no tunneling, no malodor, no streaking; fracture blisters present at the fifth digit with dark gangrenous discoloration to the digit; maceration in the fourth interspace 2/2 to fracture blistering. Dry gangrene appreciated to 5th digit with extension proximally into interspace. ORTHO: no pain or tenderness on palpation of midfoot or digits NEURO: diminished - Neurological Exam Neurological Exam: Alert, Awake, Oriented x3 - Psychiatric Exam Psychiatric exam: Normal Affect, Normal Mood - Skin Skin Exam: Warm Assessment and Plan - Assessment and Plan (Free Text) Assessment: 58M with 1) L foot chronic lisfranc fracture 2) L foot chronic healing wound 3) L fifth digit gangrenous changes vs fracture blister; plan for OR Monday with Dr Menezes Plan: Patient seen and evaluated with Dr. Menezes VSS, WBC 13.9 C/w IV abx per ID recs L foot x-ray - lisfranc fracture present, fractures at bases of 2,3,4 metatarsals, no evidence of OM L foot CT - displaced transverse fracture through the base of the 2nd met; lisfranc dilocation at mets 3,4,5 relative to 3rd cuneiform and cuboid, lateral shift of metatarsals L foot MRI (10/02) - no evidence of OM LIYA/PVR - calcified vessels, b/l popliteal, trifurcation, tibial disease, possible left SFA occlusive disease C/w PT Further recs per Dr. Saravia Local wound care: betadine to fifth digit and surrounding maceration, DSD, posterior splint Patient refuses surgery for fractures/dislocation in L foot, will have fitting for bracing for left foot and ankle upon d/c Plan for OR Monday for L 5th digit amputation with Dr. Menezes Please medically optimize patient and provide cardiac risk assessment
[2018-10-25 11:47] VITALS: BP 135/81; RESP 18; O2SAT 93
--- NOTE | 2018-10-25 11:50 | PN ---
SUBJECTIVE: The patient was seen and examined at the bedside on the TCU. No acute events overnight. He remains afebrile and hemodynamically stable. OBJECTIVE: VITAL SIGNS: Temperature 98.2, pulse 100, blood pressure 126/83, respiratory rate 20, oxygen saturation 97% on room air. GENERAL: Obese, nontoxic appearing man, sitting up in bed in no apparent distress. HEENT: PERRL, EOMI. No scleral icterus. No conjunctival pallor. NECK: No JVD. No bruits. LUNGS: Clear to auscultation. CARDIOVASCULAR: Regular rate and rhythm. Normal S1, S2. No murmurs. ABDOMEN: Obese, normoactive bowel sounds, soft, nontender, nondistended. EXTREMITIES: No edema. NEUROLOGIC: Awake, alert and oriented x 3. No focal motor deficits. LABORATORY DATA: Morning labs are pending. ASSESSMENT The patient is a 58-year-old man with multiple medical comorbidities including insulin-dependent diabetes mellitus and severe PVD s/p right TMA who was admitted for sepsis secondary to left foot cellulitis. PLAN: 1. Sepsis secondary to left foot cellulitis, resolving. Continue with local care as per Dr. Menezes. Input from Dr. Cote noted. The patient remains on Linezolid 600 mg p.o. b.i.d. The patient is pending possible OR with the podiatric team and he has an intermediate risk candidate for an intermediate risk procedure and may proceed to the OR without further cardiopulmonary workup. 2. Insulin-dependent diabetes mellitus. Continue Levemir 120 units sc qhs, Humalog 20 units sc t.i.d. with meals, Metformin 1000 mg p.o. b.i.d. and high dose insulin sliding scale for coverage. 3. Hypertension. Blood pressure controlled. Continue Amlodipine 10 mg p.o. daily and Lisinopril 40 mg p.o. daily. 4. Severe PVD s/p right TMA. Eliquis remains on hold in anticipation of possible OR. Continue Lipitor 20 mg p.o. daily. Evaluation with Dr. Lonnie Saravia pending prior to planned podiatric procedure. 5. Hyperlipidemia. Continue Lipitor 20 mg p.o. daily. 6. Anxiety disorder. Continue Xanax 0.5 mg p.o. at bedtime. 7. COPD. Continue supplemental oxygen and bronchodilators as needed. 8. Prophylaxis. GI prophylaxis not indicated as the patient is eating. DVT prophylaxis is not indicated as the patient is ambulatory. CODE STATUS: Full code. Rojelio Garzon MD [facility]
--- NOTE | 2018-10-25 13:20 | PN ---
DATE: 10/25/2018 SUBJECTIVE: The patient seen earlier today in no acute distress, nontoxic. PHYSICAL EXAMINATION: VITAL SIGNS: Temperature is 98, blood pressure is 160/80, respiratory rate 20, heart rate of 103. HEENT: Unremarkable. NECK: Supple. LUNGS: Have decreased breath sounds. HEART: Normal S1, S2. ABDOMEN: Soft. LABORATORY EXAMINATION: Reveals a white count of 13,900, hemoglobin of 11. The patient's creatinine is 1.1. Microbiology is reviewed. Review of orders reveals the patient to be on p.o. Zyvox. Dr. Janet Camp's note is reviewed. ASSESSMENT AND PLAN: This is a 58-year-old male with diabetes mellitus and hypertension, high cholesterol, admitted with leukocytosis and fever and sepsis with left foot cellulitis and MRA negative for osteomyelitis. Currently on Zyvox. We will follow with you. Renato Cote MD
[2018-10-25 17:13] VITALS: PULSE 95; TEMP 98.3
[2018-10-25] MEDS ORDERED: Albuterol-Ipratrop 3 mg / 0.5 (3 ml) UD ONE (22:56)
[2018-10-26] MEDS: Albuterol-Ipratrop 3 mg / 0.5 (3 ml) UD IH SCH ×3 (05:17→11:00)
[2018-10-26] MEDS: Insulin Reg-HIGH-Coverage SC SCH ×2 (06:34→12:25)
[2018-10-26] MEDS: Insulin Lispro 1 UNITS/0.01 ML SC SCH ×2 (06:34→12:25)
--- NOTE | 2018-10-26 08:56 | CP.PCM.PN ---
Subjective - Date & Time of Evaluation Date of Evaluation: 10/26/18 Time of Evaluation: 08:56 Objective - Vital Signs/Intake and Output Vital Signs (last 24 hours): Temp Pulse Resp BP Pulse Ox 98.3 F 95 H 18 135/81 93 L 10/25/18 16:00 10/25/18 16:00 10/25/18 16:00 10/25/18 16:00 10/25/18 16:00 - Medications Medications: Current Medications Acetaminophen (Tylenol 325mg Tab) 650 mg PO Q6H PRN PRN Reason: Headache Last Admin: 10/23/18 21:10 Dose: 650 mg Albuterol/Ipratropium (Duoneb 3 Mg/0.5 Mg (3 Ml) Ud) 3 ml IH [id number] [facility]; Protocol Last Admin: 10/26/18 07:03 Dose: 3 ml Alprazolam (Xanax) 0.5 mg PO HS [facility]; Protocol Last Admin: 10/25/18 22:04 Dose: 0.5 mg Amlodipine Besylate (Norvasc) 10 mg PO DAILY [facility]; Protocol Last Admin: 10/25/18 09:40 Dose: 10 mg Atorvastatin Calcium (Lipitor) 20 mg PO DIN [facility]; Protocol Last Admin: 10/25/18 17:35 Dose: 20 mg Docusate Sodium (Colace) 100 mg PO BID [facility] Last Admin: 10/25/18 17:31 Dose: 100 mg Insulin Detemir (Levemir) 60 unit SC AMHS [facility]; Protocol Last Admin: 10/25/18 22:03 Dose: Not Given Insulin Human Lispro (Humalog) 20 units SC AC [facility]; Protocol Last Admin: 10/26/18 06:34 Dose: Not Given Insulin Human Regular (Humulin R High) 0 units SC ACHS [facility]; Protocol Last Admin: 10/26/18 06:34 Dose: Not Given Linezolid (Zyvox) 600 mg PO BID [facility]; Protocol Stop: 11/01/18 18:01 Last Admin: 10/25/18 17:35 Dose: 600 mg Lisinopril (Zestril) 40 mg PO DAILY [facility]; Protocol Last Admin: 10/25/18 09:39 Dose: 40 mg Metformin HCl (Glucophage) 1,000 mg PO ACBD [facility]; Protocol Last Admin: 10/26/18 07:56 Dose: Not Given - Labs Labs: 10/25/18 06:40 10/22/18 10:15
[2018-10-26] MEDS: Insulin Detemir 100 units/ml Vial (Levemir) SC SCH (09:43)
--- NOTE | 2018-10-26 11:54 | PN ---
DATE: 10/26/2018 SUBJECTIVE: The patient is doing well. No itching. No fevers. No chills. He had an uneventful night. PHYSICAL EXAMINATION: VITAL SIGNS: Temperature 98, blood pressure 130/80, respiratory rate 18, heart rate 95. HEENT: Examination of HEENT is unremarkable. NECK: Supple. LUNGS: Decreased breath sounds. HEART: Normal S1, S2. ABDOMEN: Soft, nontender. LABORATORY DATA: Laboratory examination reveals a white count of 13,900. ANCA level of 14.7 is noted. Currently, the patient's review of medication confirms the patient to be on oral Zyvox. ASSESSMENT AND PLAN: The patient is a 58-year-old male who has diabetes mellitus and has high cholesterol, hypertension and has morbid obesity with a body mass index of 43 who was ALLERGIC TO PENICILLIN AND TETRACYCLINE and admitted with sepsis with left foot cellulitis and had an magnetic resonance imaging as outpatient which was negative for osteomyelitis. Currently on oral Zyvox. The patient is scheduled for vascular procedure, Dr. Lonnie Saravia. The patient does have possible left superficial femoral artery occlusive disease. We will follow with you. Renato Cote MD
--- NOTE | 2018-10-26 19:04 | PN ---
DATE: 10/26/2018 SUBJECTIVE: The patient is seen in the vascular labeling strategist. He has no complaints. There have been no acute events overnight. PHYSICAL EXAMINATION: VITAL SIGNS: Afebrile. HEENT: PERRLA, EOMI. No icterus. NECK: Supple with full range of motion. LUNGS: Clear bilaterally. HEART: Regular rate and rhythm. ABDOMEN: Benign. NEUROLOGIC: The patient is intact. LABORATORY DATA: WBCs of 13.9, these are yesterday's values and a glucose of 157 which was at 04:55 this morning. ASSESSMENT AND PLAN: The patient will be cathed shortly by Dr. Lonnie Saravia. Further management as per results of cath at the extremities. Deng Garzon MD
--- NOTE | 2018-10-28 02:11 | DS ---
ADMISSION DIAGNOSES: Sepsis secondary to left foot cellulitis and PVD. DISCHARGE DIAGNOSES: Sepsis secondary to left foot cellulitis and PVD. SECONDARY DIAGNOSES: Insulin-dependent diabetes mellitus, hypertension, hyperlipidemia, anxiety disorder, COPD and obesity. CONSULTATIONS: Dr. Cote (Infectious Disease), Dr. Menezes (Podiatry) and Dr. Saravia (Interventional Radiology). IMAGING STUDIES: None. DIAGNOSTIC STUDIES: None. PROCEDURES: 1. Bilateral lower extremity LIYA exam which demonstrated left SFA of occlusive disease and bilateral popliteal and/or tibial disease. HISTORY OF PRESENT ILLNESS: The patient is a 58-year-old man with multiple medical comorbidities who [facility] for evaluation of a nonhealing left foot ulcer. The patient was admitted to the general medical velez for management of sepsis secondary to left foot cellulitis and was subsequently transferred to the TCU for continued physical therapy and IV antibiotics. HOSPITAL COURSE: The patient's TCU stay was unremarkable and he was followed daily by the Podiatric team. He was tolerating his antimicrobial regimen without difficulty. He was evaluated by Dr. Lonnie Saravia to undergo a vascular study prior to the planned podiatric surgical intervention. Due to his abnormal LIYA study he was taken to the IR suite where he underwent successful revascularization with Dr. Lonnie Saravia. He was subsequently readmitted to the general medical velez for continued postprocedure care. CONDITION: Fair, improved. DISPOSITION: The patient readmitted to general medical velez s/p IR revascularization. Rojelio Garzon MD [facility]
--- NOTE | 2018-10-29 07:16 | PN ---
DATE: 10/27/2018 SUBJECTIVE: A 58-year-old diabetic male seen at bedside for continued evaluation and management of a gangrenous left fifth digit. The patient is resting comfortably and presents with no complaints at this time. He continues to remain nonweightbearing with his posterior splint intact. He is scheduled for fifth digit amputation on Monday 07:30 a.m. PHYSICAL EXAMINATION: VITAL SIGNS: Temperature of 98.2, pulse rate of 97, blood pressure of 158/86, respiratory rate of 18. LABORATORY FINDINGS: Reveal a white count of 12.3, hemoglobin of 10.1, hematocrit of 31.7, and platelet count of 293. OBJECTIVE: Nonpalpable posterior tibial pulses noted bilaterally and weakly palpable dorsalis pedis pulse noted bilaterally. Capillary filling time is slightly delayed on the digits and absent on the left fifth. There is overall decreasing edema and erythema of the left lower leg and foot. Temperature gradient is warm to warm. There is a gangrenous ulcerated left fifth digit that has demarcated at the first metatarsophalangeal joint. The periphery of the wound shows no signs of ischemic changes at this time. There is no purulence emanating from the base of the gangrenous fifth digit, but there is some extension into the proximal interspace. No signs of underlying abscess formation noted clinically at this time. ASSESSMENT: A 58-year-old male with left chronic Lisfranc fractures and dislocations as well as a gangrenous left fifth digit, which is planned for amputation on Monday 07:[address] Menezes. He is status post vascular intervention yesterday with no complications noted. PLAN: The patient was seen, his wound was cleansed with normal sterile saline and application of Betadine solution and a dry sterile dressing was applied. We will keep the posterior splint on and keep him off weightbearing until further notice. The patient is not anticoagulated at this time. We will keep him n.p.o. tomorrow night and he will undergo left fifth digit amputation at 07:[address] Menezes. Rolf Carballo DPM [facility] # [id number]
== END 2018-10-26 07:30 | disposition short-term general hospital (02) | DRG 872 ==
LOC: TRCU 18:58
PROVIDERS: ADMIT Student in an Organized Health Care Education/Training Program; ATTEND Student in an Organized Health Care Education/Training Program
PROC: F07Z9FZ Gait Training/Functional Ambulation Treatment using Assistive, Adaptive, Supportive or Protective Equipment (ICD-10-PCS; principal; 2018-10-19)
PROC: F08Z4ZZ Home Management Treatment (ICD-10-PCS; 2018-10-19)
PROC: 3E0F7GC Introduction of Other Therapeutic Substance into Respiratory Tract, Via Natural or Artificial Opening (ICD-10-PCS; 2018-10-19)
DX: A41.9 Sepsis, unspecified organism (principal); L03.116 Cellulitis of left lower limb; E11.52 Type 2 diabetes mellitus with diabetic peripheral angiopathy with gangrene; Z68.41 Body mass index [BMI] 40.0-44.9, adult; M84.475A Pathological fracture, left foot, initial encounter for fracture; J44.9 Chronic obstructive pulmonary disease, unspecified; E11.621 Type 2 diabetes mellitus with foot ulcer; L97.529 Non-pressure chronic ulcer of other part of left foot with unspecified severity; E11.40 Type 2 diabetes mellitus with diabetic neuropathy, unspecified; I25.10 Atherosclerotic heart disease of native coronary artery without angina pectoris; I10 Essential (primary) hypertension; E78.5 Hyperlipidemia, unspecified; E66.01 Morbid (severe) obesity due to excess calories; E78.00 Pure hypercholesterolemia, unspecified; F41.9 Anxiety disorder, unspecified; Z79.2 Long term (current) use of antibiotics; Z79.4 Long term (current) use of insulin; Z88.0 Allergy status to penicillin

== ENCOUNTER 2018-10-26 08:05 | Inpatient (IN) | payer MEDICARE, OTHER ==
[2018-10-25 17:22] VITALS: BMI 42.9
[2018-10-26 09:17] LABS: BASO # 0.05 K/mm3 (0.0-2.0); BASO % 0.4 % (0.0-3.0); EOS # 0.5 (0.0-0.7); EOS % 4.1 % (1.5-5.0); HEMOGLOBIN 10.1 g/dL (14.0-18.0); LYMPH # 1.9 (1.2-3.4); LYMPH % 15.4 % (22.0-35.0); MEAN CELL VOLUME 88.5 fl (80.0-105.0); MEAN CORPUSCULAR HEMOGLOBIN 28.2 pg (25.0-35.0); MEAN CORPUSCULAR HGB CONC 31.9 g/dl (31.0-37.0); MEAN PLATELET VOLUME 9.8 fl (7.0-11.0); MONO # 0.6 (0.1-0.6); RBC 3.58 10^6/uL (3.5-6.1); RED CELL DISTRIBUTION WIDTH 13.5 % (11.5-14.5); WHITE BLOOD COUNT 12.3 10^3/uL (4.5-11.0)
[2018-10-26] MEDS ORDERED: Lidocaine PF 2% (5 ml) Inj (For Cardiac Arrhy) ONE (09:19)
[2018-10-26] MEDS ORDERED: Nitroglycerin 50mg in D5W 50 MG/250 ML BOTTLE IV ONE (09:20)
[2018-10-26] MEDS ORDERED: Iodixanol 320 MG/ML 200 ML BOTTLE IV ONE (09:20)
[2018-10-26] MEDS ORDERED: Iodixanol 320 MG/ML 100 ML BOTTLE IV ONE (09:20)
[2018-10-26] MEDS ORDERED: Iodixanol 320 mg/ml 150 ml Bottle IV ONE (09:20)
[2018-10-26 09:25] LABS: INR 1.38; PARTIAL THROMBOPLASTIN TIME 39.9 Seconds (26.9-38.3); PROTHROMBIN TIME 15.6 SECONDS (9.4-12.5)
[2018-10-26 09:28] LABS: BLOOD UREA NITROGEN 18 mg/dL (7-21); CALCIUM 9.4 mg/dL (8.4-10.5); GFR NON-AFRICAN AMERICAN > 60
[2018-10-26] MEDS ORDERED: Eptifibatide 0.75 mg/ml 75 MG/100 ML BAG IV ONE (09:47)
[2018-10-26] MEDS ORDERED: Eptifibatide 20 mg/10mL Inj IVP ONE (09:47)
[2018-10-26] MEDS ORDERED: Midazolam 2 MG/2 ML VIAL ONE ×2 (10:39→10:57)
--- NOTE | 2018-10-26 13:01 | VASCULAR ---
Date of service: 10/26/2018 PROCEDURE: 1. Abdominal aortogram and bilateral lower extremity runoff with left selective views. 2. Left SFA silver Hawk atherectomy and balloon angioplasty 3. Long segment left anterior tibial artery angioplasty 4. Proximal left posterior tibial artery angioplasty HISTORY: Severe peripheral vascular disease. Diabetes. Left mid foot fracture with ischemic left 5th digit. PHYSICIAN(S): Lonnie Saravia M.D. TECHNIQUE: The relative risks and indications of the procedure were explained to the patient and consent obtained. The patient was hydrated prior to the procedure and the appropriate labs drawn. The patient was placed supine on the arteriogram table and the right groin prepped and draped in the usual sterile fashion. Conscious sedation and monitoring were provided throughout the procedure by a nurse. Under ultrasound guidance, the right common femoral artery is punctured with a micropuncture set. A 5 Sudanese sheath was placed. Through the sheath over guidewire a 5 Sudanese flush catheter was placed the abdominal aorta at the level renal arteries and a PA DSA abdominal pelvic arteriogram performed. The catheter was pulled down to the aortic bifurcation and bilateral oblique DSA pelvic arteriograms performed. Overlapping bilateral lower extremity DSA arteriograms were obtained from the inguinal ligaments to the ankles. A 7 Sudanese 45 cm sheath was advanced over the bifurcation and placed in the left external iliac artery. The occlusive disease in the distal left SFA and throughout the left anterior tibial artery was crossed with a 5 Sudanese catheter and angled Glidewire. Exchange is made for a 0.014 support wire. Integrilin was given. Angioplasty of the terminal left anterior tibial artery was performed with a 2.5 mm balloon. The left anterior tibial artery diffusely was dilated with a 3.5/3 0.0 x 210 mm tapered balloon. An excellent angiographic result was obtained and no stent was required. The 0.014 guidewire was redirected across the proximal left posterior tibial artery disease. The proximal left posterior tibial artery was dilated with a 3.5 x 4 cm balloon. An excellent angiographic result was obtained. Silver Hawk atherectomy of the left SFA in the adductor canal was performed with and LS catheter. Eight passes were obtained. The distal left SFA was then dilated with a 6 mm by 120 balloon. An excellent angiographic result was obtained. No stent was required. The proximal left SFA was dilated with a 7 mm balloon. No stent was placed. Completion angiograms were performed. The sheath was removed hemostasis obtained with a Perclose device. The patient tolerated the procedure well. FINDINGS: There are single renal arteries bilaterally which are widely patent and normal in appearance. The nephrograms are symmetric in appearance. The infrarenal abdominal aorta is widely patent without a radiographically significant stenosis. The aortic bifurcation is widely patent. The common and external iliac arteries are normal in appearance without a significant stenosis. The internal iliac arteries are patent bilaterally. Right lower extremity: The right common femoral artery is patent. The right profunda femoral artery is patent. The right superficial femoral artery is smoothly diseased with a mild stenosis distally. The right popliteal artery is patent and continuous. The right popliteal artery stent is patent. There is severe right trifurcation and tibial occlusive disease. There is 1 vessel runoff via the right anterior tibial artery. Multiple severe stenoses in the mid right anterior tibial artery is seen. The right posterior tibial and peroneal arteries are occluded. Left lower extremity: Left common femoral artery is patent. The left profunda femoral artery is patent. The left superficial femoral artery is as several moderate stenoses in its proximal segment. There is moderate to severe stenoses in the left SFA in the adductor canal. The left popliteal artery is patent and continuous. There is 2 vessel runoff via the dominant left anterior tibial artery in the smaller left posterior tibial artery. There are multifocal stenoses throughout the left anterior tibial artery. There is a critical stenosis in the distal left anterior tibial artery extending into the dorsalis pedis artery. There is moderate to severe pedal occlusive disease. The plantar arch is atretic. IMPRESSION: 1.Successful left SFA silver Hawk atherectomy and balloon angioplasty as described above. 2. Successful long segment left anterior tibial artery angioplasty. 3. Successful left proximal posterior tibial artery angioplasty. 4. 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
[2018-10-26] MEDS ORDERED: Oxycodone/Acetaminophen 5/325 mg Tab PO PRN (13:29)
[2018-10-26] MEDS ORDERED: Sodium Chloride 0.45% 1,000 ML IV SCH (13:30)
[2018-10-26] MEDS: Albuterol-Ipratrop 3 mg / 0.5 (3 ml) UD IH SCH ×2 (15:31→20:22)
[2018-10-26] MEDS ORDERED: Insulin Lispro 1 UNITS/0.01 ML SC SCH (16:30)
[2018-10-26] MEDS ORDERED: Pneumococcal 23-Valent Vaccine IM ONE (17:29)
[2018-10-26] MEDS: Insulin Reg-HIGH-Coverage SC SCH ×2 (18:10→22:02)
[2018-10-26] MEDS: Insulin Lispro 1 UNITS/0.01 ML SC SCH (18:28)
[2018-10-26] MEDS ORDERED: Albuterol-Ipratrop 3 mg / 0.5 (3 ml) UD ONE (20:25)
[2018-10-26] MEDS ORDERED: Insulin Detemir 100 units/ml Vial (Levemir) SC SCH (22:00)
[2018-10-26] MEDS: Insulin Detemir 100 units/ml Vial (Levemir) SC SCH (23:58)
[2018-10-27] MEDS: Albuterol-Ipratrop 3 mg / 0.5 (3 ml) UD IH SCH ×7 (04:00→23:42)
[2018-10-27] MEDS: Insulin Lispro 1 UNITS/0.01 ML SC SCH ×3 (09:39→16:44)
[2018-10-27] MEDS: Insulin Detemir 100 units/ml Vial (Levemir) SC SCH ×2 (09:40→22:16)
[2018-10-27 09:59] LABS: ALB/GLOB RATIO 1.2 (1.1-1.8); ALBUMIN 3.6 g/dL (3.0-4.8); ALT/SGPT 43 U/L (7-56); AST/SGOT 30 U/L (17-59); BLOOD UREA NITROGEN 14 mg/dL (7-21); CALCIUM 8.9 mg/dL (8.4-10.5); GFR NON-AFRICAN AMERICAN > 60
[2018-10-27] MEDS ORDERED: Oxycodone/Acetaminophen 5/325 mg Tab PO PRN (10:03)
[2018-10-27] MEDS: Insulin Reg-HIGH-Coverage SC SCH ×4 (10:30→22:15)
--- NOTE | 2018-10-27 11:15 | HP ---
HISTORY OF PRESENT ILLNESS: The patient is a 58-year-old man with a past medical history of insulin- dependent diabetes mellitus and severe PVD s/p right TMA who was sent to [facility] by Dr. Menezes for management of sepsis secondary to left foot cellulitis. After initial medical medical management on the general medical velez, the patient was transferred to the TCU for continued physical therapy and IV antibiotics. While on the TCU he underwent an LIYA examination of his left lower extremity prior to planned podiatric surgical intervention. His LIYA study was markedly abnormal and suggestive of SFA occlusive disease and thus plans were made for IR revascularization with Dr. Lonnie Saravia. The patient underwent successful left SFA atherectomy and balloon angioplasty as well as successful angioplasty of the left anterior tibial artery and posterior tibial arteries. He was subsequently transferred to the general medical velez for continued postprocedure care. This morning he feels well and offers no complaints. PAST MEDICAL HISTORY: As per HPI, also hypertension, hyperlipidemia, COPD, anxiety disorder and morbid obesity. PAST SURGICAL HISTORY: As per HPI, also tonsillectomy, right knee arthroscopy and spinal surgery with fusion of L4/L5. ALLERGIES: Penicillin, Tetracycline and Heparin. MEDICATIONS: Eliquis 5 mg p.o. b.i.d., Amlodipine 10 mg p.o. daily, Lisinopril 40 mg p.o. daily, Lipitor 20 mg p.o. daily, Metformin 1000 mg p.o. b.i.d., Humalog 20 units subcutaneously t.i.d., Lantus 120 units sc at bedtime, Xanax 0.5 mg p.o. at bedtime and Xyzal 5 mg p.o. daily. FAMILY HISTORY: Significant for hypertension and diabetes. SOCIAL HISTORY: The patient denies any toxic habits. REVIEW OF SYSTEMS: A 12-point review of systems is negative except as per HPI. PHYSICAL EXAMINATION: VITAL SIGNS: Temperature 98.2, pulse 97, blood pressure 150/80, respiratory rate 20, oxygen saturation 98% on room air. GENERAL: Obese, nontoxic-appearing man, sitting up in bed, in no apparent distress. HEENT: PERRL, EOMI. No scleral icterus. No conjunctival pallor. NECK: No JVD. No bruits. LUNGS: Clear to auscultation. CARDIOVASCULAR: Regular rate and rhythm. Normal S1 and S2. No murmurs. ABDOMEN: Obese, normoactive bowel sounds, soft, nontender, nondistended. EXTREMITIES: No edema. NEUROLOGIC: Awake, alert and oriented x 3. No focal motor deficits. LABORATORY DATA: Morning labs are pending. ASSESSMENT: The patient is a 58-year-old man with multiple medical comorbidities including insulin-dependent diabetes mellitus and severe PVD s/p right TMA who was admitted for sepsis secondary to left foot cellulitis. PLAN: 1. Sepsis secondary to left foot cellulitis, resolving. Continue with local care as per Dr. Menezes. Input from Dr. Cote noted. Continue with current antimicrobials as per Dr. Cote. 2. Severe PVD s/p TMA s/p IR revascularization. Input from Dr. Saravia noted. Continue with postprocedure care as per Dr. Saravia. 3. Insulin-dependent diabetes mellitus. Continue Levemir 120 units sc qhs, Humalog 20 units sc t.i.d. with meals, Metformin 1000 mg p.o. b.i.d. and high dose insulin sliding scale for coverage. 4. Hypertension. Continue Amlodipine 10 mg p.o. daily and Lisinopril 40 mg p.o. daily. 5. Hyperlipidemia. Continue Lipitor 20 mg p.o. daily. 6. Anxiety disorder. Continue Xanax 0.5 mg p.o. at bedtime. 7. COPD. Continue supplemental oxygen and bronchodilators as needed. 8. Prophylaxis. GI prophylaxis not indicated as the patient is eating. DVT prophylaxis not indicated as the patient is ambulatory. CODE STATUS: Full code. Rojelio Garzon MD MTDD
[2018-10-28] MEDS: Albuterol-Ipratrop 3 mg / 0.5 (3 ml) UD IH SCH ×4 (07:07→19:45)
[2018-10-28 07:49] LABS: BASO # 0.05 K/mm3 (0.0-2.0); BASO % 0.4 % (0.0-3.0); EOS # 0.4 (0.0-0.7); EOS % 3.7 % (1.5-5.0); HEMOGLOBIN 9.9 g/dL (14.0-18.0); LYMPH # 2.3 (1.2-3.4); LYMPH % 19.5 % (22.0-35.0); MEAN CELL VOLUME 88.7 fl (80.0-105.0); MEAN CORPUSCULAR HGB CONC 31.5 g/dl (31.0-37.0); MEAN PLATELET VOLUME 10.2 fl (7.0-11.0); MONO # 1.1 (0.1-0.6); MONO % 8.8 % (1.0-6.0); RBC 3.54 10^6/uL (3.5-6.1); RED CELL DISTRIBUTION WIDTH 13.6 % (11.5-14.5); WHITE BLOOD COUNT 11.9 10^3/uL (4.5-11.0)
[2018-10-28 08:12] LABS: ALB/GLOB RATIO 1.2 (1.1-1.8); ALBUMIN 3.6 g/dL (3.0-4.8); ALT/SGPT 33 U/L (7-56); AST/SGOT 31 U/L (17-59); BLOOD UREA NITROGEN 18 mg/dL (7-21); CALCIUM 9.1 mg/dL (8.4-10.5); GFR NON-AFRICAN AMERICAN > 60
[2018-10-28] MEDS: Insulin Reg-HIGH-Coverage SC SCH ×4 (08:45→22:13)
[2018-10-28] MEDS: Insulin Lispro 1 UNITS/0.01 ML SC SCH ×3 (08:51→17:13)
[2018-10-28] MEDS: Insulin Detemir 100 units/ml Vial (Levemir) SC SCH ×2 (10:17→22:13)
--- NOTE | 2018-10-28 10:35 | CP.PCM.PN ---
<Janet Arcos - Last Filed: 10/28/18 10:36> Subjective - Date & Time of Evaluation Date of Evaluation: 10/28/18 Time of Evaluation: 10:35 - Subjective Subjective: Podiatry Progress Note: Dr. Menezes/Haris 58M patient seen and examined this AM at bedside for L 5th digit gangrenous changes. Patient resting comfortably and in NAD. He denies any pain to his L foot at this time. Plan for OR tomorrow morning at 7:30 am for L 5th digit amputation. Denies nausea/vomiting/chills/fever. Objective - Vital Signs/Intake and Output Vital Signs (last 24 hours): Temp Pulse Resp BP Pulse Ox 98.7 F 75 18 137/76 95 10/27/18 22:36 10/27/18 22:36 10/27/18 22:36 10/28/18 09:46 10/27/18 22:36 Intake and Output: 10/28/18 10/28/18 06:59 18:59 Intake Total 120 Output Total 0 Balance 120 - Medications Medications: Current Medications Albuterol/Ipratropium (Duoneb 3 Mg/0.5 Mg (3 Ml) Ud) 3 ml IH [id number] [facility] Last Admin: 10/28/18 07:07 Dose: 3 ml Alprazolam (Xanax) 0.5 mg PO HS [facility]; Protocol Last Admin: 10/27/18 22:16 Dose: 0.5 mg Amlodipine Besylate (Norvasc) 10 mg PO DAILY [facility] Last Admin: 10/28/18 09:46 Dose: 10 mg Atorvastatin Calcium (Lipitor) 20 mg PO DAILY [facility] Last Admin: 10/28/18 09:48 Dose: 20 mg Docusate Sodium (Colace) 100 mg PO BID [facility] Last Admin: 10/28/18 09:47 Dose: 100 mg Insulin Detemir (Levemir) 60 unit SC AMHS [facility] Last Admin: 10/28/18 10:17 Dose: 60 units Insulin Human Lispro (Humalog) 20 units SC AC [facility] Last Admin: 10/28/18 08:51 Dose: 20 unit Insulin Human Regular (Humulin R High) [address] SC [facility]; Protocol Last Admin: 10/28/18 08:45 Dose: Not Given Lisinopril (Zestril) 40 mg PO DAILY [facility] Last Admin: 10/28/18 09:46 Dose: 40 mg Metformin HCl (Glucophage) 1,000 mg PO BID [facility] Last Admin: 10/28/18 09:47 Dose: 1,000 mg Ondansetron HCl (Zofran Inj) 4 mg IVP ONCE PRN PRN Reason: Nausea/Vomiting Oxycodone/Acetaminophen (Percocet 5/325 Mg Tab) 1 tab PO Q4H PRN PRN Reason: Pain, moderate (4-7) Stop: 10/29/18 10:04 - Labs Labs: 10/28/18 07:00 10/28/18 07:00 PT 15.6 SECONDS (9.4-12.5) H 10/26/18 08:20 INR 1.38 10/26/18 08:20 APTT 39.9 Seconds (26.9-38.3) H 10/26/18 08:20 - Constitutional Appears: Non-toxic, No Acute Distress - Head Exam Head Exam: ATRAUMATIC, NORMOCEPHALIC - Extremities Exam Additional comments: Left posterior splint left C/D/I No strikethrough appreciated - Neurological Exam Neurological Exam: Alert, Awake, Oriented x3 - Psychiatric Exam Psychiatric exam: Normal Affect, Normal Mood - Skin Skin Exam: Warm Assessment and Plan - Assessment and Plan (Free Text) Assessment: 58M with 1) L foot chronic lisfranc fracture 2) L foot chronic healing wound 3) L fifth digit gangrenous changes vs fracture blister; plan for OR Monday at 7:30am with Dr Menezes Plan: Patient seen and evaluated Discussed patient with Dr. Carballo WBC 11.9 C/w IV abx per ID recs L foot x-ray - lisfranc fracture present, fractures at bases of 2,3,4 metatarsals, no evidence of OM L foot CT - displaced transverse fracture through the base of the 2nd met; lisfranc dilocation at mets 3,4,5 relative to 3rd cuneiform and cuboid, lateral shift of metatarsals L foot MRI (10/02) - no evidence of OM LIYA/PVR - calcified vessels, b/l popliteal, trifurcation, tibial disease, possible left SFA occlusive disease Patient refuses surgery for fractures/dislocation in L foot, will have fitting for bracing for left foot and ankle upon d/c Plan for OR Monday at 7:30am for L 5th digit amputation with Dr. Menezes Please medically optimize patient/cardiac risk assessment <Liseth Menezes - Last Filed: 10/28/18 17:48> Objective - Vital Signs/Intake and Output Vital Signs (last 24 hours): Temp Pulse Resp BP Pulse Ox 99.0 F 102 H 20 122/69 95 10/28/18 14:00 10/28/18 14:00 10/28/18 14:00 10/28/18 14:00 10/28/18 14:00 Intake and Output: 10/28/18 10/28/18 06:59 18:59 Intake Total 120 Output Total 0 Balance 120 - Medications Medications: Current Medications Albuterol/Ipratropium (Duoneb 3 Mg/0.5 Mg (3 Ml) Ud) 3 ml IH [id number] [facility] Last Admin: 10/28/18 16:00 Dose: Not Given Alprazolam (Xanax) 0.5 mg PO HS [facility]; Protocol Last Admin: 10/27/18 22:16 Dose: 0.5 mg Amlodipine Besylate (Norvasc) 10 mg PO DAILY [facility] Last Admin: 10/28/18 09:46 Dose: 10 mg Atorvastatin Calcium (Lipitor) 20 mg PO DAILY [facility] Last Admin: 10/28/18 09:48 Dose: 20 mg Docusate Sodium (Colace) 100 mg PO BID [facility] Last Admin: 10/28/18 17:13 Dose: 100 mg Insulin Detemir (Levemir) 60 unit SC AMHS [facility] Last Admin: 10/28/18 10:17 Dose: 60 units Insulin Human Lispro (Humalog) 20 units SC AC [facility] Last Admin: 10/28/18 17:13 Dose: 20 unit Insulin Human Regular (Humulin R High) 0 units SC ACHS [facility]; Protocol Last Admin: 10/28/18 16:47 Dose: Not Given Lisinopril (Zestril) 40 mg PO DAILY [facility] Last Admin: 10/28/18 09:46 Dose: 40 mg Metformin HCl (Glucophage) 1,000 mg PO BID [facility] Last Admin: 10/28/18 17:13 Dose: 1,000 mg Ondansetron HCl (Zofran Inj) 4 mg IVP ONCE PRN PRN Reason: Nausea/Vomiting Oxycodone/Acetaminophen (Percocet 5/325 Mg Tab) 1 tab PO Q4H PRN PRN Reason: Pain, moderate (4-7) Stop: 10/29/18 10:04 - Labs Labs: 10/28/18 07:00 10/28/18 07:00 PT 15.6 SECONDS (9.4-12.5) H 10/26/18 08:20 INR 1.38 10/26/18 08:20 APTT 39.9 Seconds (26.9-38.3) H 10/26/18 08:20 Attending/Attestation - Attestation I have personally seen and examined this patient.: Yes I have fully participated in the care of the patient.: Yes I have reviewed all pertinent clinical information, including history, physical exam and plan: Yes
[2018-10-29] MEDS: Albuterol-Ipratrop 3 mg / 0.5 (3 ml) UD IH SCH ×7 (00:47→19:19)
[2018-10-29 07:07] LABS: BASO # 0.05 K/mm3 (0.0-2.0); BASO % 0.4 % (0.0-3.0); EOS # 0.4 (0.0-0.7); HEMOGLOBIN 9.9 g/dL (14.0-18.0); LYMPH % 16.8 % (22.0-35.0); MEAN CELL VOLUME 88.2 fl (80.0-105.0); MEAN CORPUSCULAR HEMOGLOBIN 27.9 pg (25.0-35.0); MEAN CORPUSCULAR HGB CONC 31.6 g/dl (31.0-37.0); MEAN PLATELET VOLUME 10.1 fl (7.0-11.0); MONO # 1.2 (0.1-0.6); MONO % 10.5 % (1.0-6.0); RBC 3.55 10^6/uL (3.5-6.1); RED CELL DISTRIBUTION WIDTH 13.8 % (11.5-14.5); WHITE BLOOD COUNT 11.8 10^3/uL (4.5-11.0)
[2018-10-29 07:19] LABS: ALB/GLOB RATIO 1.2 (1.1-1.8); ALBUMIN 3.7 g/dL (3.0-4.8); ALT/SGPT 34 U/L (7-56); AST/SGOT 27 U/L (17-59); BLOOD UREA NITROGEN 21 mg/dL (7-21); CALCIUM 9.1 mg/dL (8.4-10.5); GFR NON-AFRICAN AMERICAN > 60
[2018-10-29] MEDS ORDERED: Lidocaine 1% Inj (20ml) ONE (07:23)
[2018-10-29] MEDS ORDERED: Lidocaine 2% Inj (20ml) ONE (07:23)
[2018-10-29] MEDS: Insulin Reg-HIGH-Coverage SC SCH ×5 (07:48→22:30)
[2018-10-29] MEDS: Insulin Lispro 1 UNITS/0.01 ML SC SCH ×3 (08:04→17:11)
[2018-10-29] MEDS ORDERED: Propofol 10 mg/ml Inj (20 ML) ONE (08:13)
[2018-10-29] MEDS ORDERED: Midazolam 2 MG/2 ML VIAL ONE (08:14)
[2018-10-29] MEDS ORDERED: HYDROmorphone 0.5 mg/0.5 ml ISec IVP PRN (09:19)
[2018-10-29] MEDS ORDERED: Oxycodone/Acetaminophen 5/325 mg Tab PO PRN ×2 (09:19)
--- NOTE | 2018-10-29 09:19 | PCM.SURG1 ---
Surgeon's Initial Post Op Note - Surgeon's Notes Surgeon: Dr. Menezes Stevedore Dock: Dr. Janet Arcos, PGY1, Dr. Cyn Mcgill, PGY1 Type of Anesthesia: IV Sedation, Local Anesthesia Administered By: Dr. Velasquez Pre-Operative Diagnosis: Left foot 5th digit gangrene Operative Findings: see dictation. I: pre-operative 10 cc of 1% Lidocaine and 0.5% Marcaine plain. M: 2-0 Vicryl, 2-0 Nylon Post-Operative Diagnosis: same as above Operation Performed: Left foot 5th digit amputation Specimen/Specimens Removed: 1) Left 5th digit Estimated Blood Loss: EBL {In ML}: 5 Blood Products Given: N/A Drains Used: No Drains Post-Op Condition: Good Date of Surgery/Procedure: 10/29/18 Time of Surgery/Procedure: 09:19
[2018-10-29] MEDS ORDERED: Lactated Ringer's 1,000 ML IV SCH (09:30)
[2018-10-29] MEDS: Insulin Detemir 100 units/ml Vial (Levemir) SC SCH ×2 (10:32→22:04)
--- NOTE | 2018-10-29 10:35 | CP.PCM.PCO ---
Addendum Addendum: 10/29/18 10:31 Patient POD#0 Left 5th digit amputation. Patient tolerated procedure well. Patient to remain NWB to the left lower extremity at this time in CAM boot. Patient started on Eliquis for DVT propylaxis. Patient stable for discharge tomorrow morning from podiatry standpoint. Patient to follow up with Dr. Menezes in 1 week in office for continued care. VNS services for home dressing changes recommended; xeroform, DSD, ABD, Maddy.
--- NOTE | 2018-10-29 10:41 | PN ---
SUBJECTIVE: The patient was seen and examined at bedside on the general medical velez. No acute events overnight. He remains afebrile and hemodynamically stable. This morning he is scheduled for amputation of the left foot fifth digit with Dr. Menezes. OBJECTIVE: VITAL SIGNS: Temperature 99.9, pulse 79, blood pressure 143/74, respiratory rate 80, oxygen saturation 98% on room air. GENERAL: Obese, nontoxic appearing man, sitting up in bed in no apparent distress. HEENT: PERRL, EOMI. No scleral icterus. No conjunctival pallor. NECK: No JVD. No bruits. LUNGS: Clear to auscultation. CARDIOVASCULAR: Regular rate and rhythm. Normal S1, S2. No murmurs. ABDOMEN: Obese, normoactive bowel sounds, soft, nontender, nondistended. EXTREMITIES: No edema. NEUROLOGIC: Awake, alert and oriented x 3. No focal motor deficits. LABORATORY DATA: WBC 11.8 with 69% neutrophils, hemoglobin 9.9, hematocrit 31, platelets 263. Chemistry reviewed and unremarkable. ASSESSMENT: The patient is 58-year-old man with multiple medical comorbidities including insulin-dependent diabetes mellitus and severe PVD s/p right TMA s/p IR revascularization who was admitted for sepsis secondary to left foot cellulitis. PLAN: 1. Sepsis secondary to left foot cellulitis, resolving. Input from Dr. Menezes noted. The patient is scheduled for amputation of the left foot fifth digit today and is an intermediate risk candidate for an intermediate risk procedure and may proceed to the OR without further cardiopulmonary workup. The patient remains off antimicrobials. 2. Severe PVD s/p right TMA s/p IR revascularization. Input from Dr. Saravia noted. Continue Lipitor 20 mg p.o. daily. Eliquis will be resumed when okay from the surgical standpoint. 3. Insulin-dependent diabetes mellitus. Continue Levemir 120 units sc qhs, Humalog 20 units sc tid with meals, Metformin 1000 mg p.o. bid and high dose insulin sliding scale for coverage. 4. Hypertension. Continue Amlodipine 10 mg p.o. daily and Lisinopril 40 mg p.o. daily. 5. Hyperlipidemia. Continue Lipitor 20 mg p.o. daily. 6. Anxiety disorder. Continue Xanax 0.5 mg p.o. at bedtime. 7. COPD. Continue supplemental oxygen and bronchodilators as needed. 8. Prophylaxis. GI prophylaxis not indicated as the patient is eating. DVT prophylaxis not indicated as the patient is ambulatory. CODE STATUS: Full code. Rojelio Garzon MD [facility]
--- NOTE | 2018-10-29 13:55 | CP.PCM.PCO ---
Additional Comments - Additional Comments Additional Comments: Pt seen and examined at bedside. He is s/p L 5th digit amputation by Dr. Menezes this morning. Dressing is c/d/i. Pt denies any pain. Will continue to follow.
[2018-10-29] MEDS: Insulin Detemir 100 units/ml Vial (Levemir) SC STA ×2 (22:15→22:30)
--- NOTE | 2018-10-29 22:26 | CP.PCM.PN ---
Subjective - Date & Time of Evaluation Date of Evaluation: 10/29/18 Time of Evaluation: 22:26 - Subjective Subjective: Patient was seen at bedside. Nurse Dejan had asked for clarification of Levemir order. He told me that FSBS is 108 mg % and if he should hold the order for Levemir 60 Units SC. Later on , I was asked to co-sign order for Benadryl 25 mg PO x 1. He had no complaints when I saw him. States that he had been on Lantus 60 Units at home. Denies sweating , palpitation, stomach pain, blurry vision, increased frequency. Medical record was reviewed. This 58 year old white male was admitted with cellulitis of left foot. Has PMH of obesity,IDDM, severe PVD,HTN,HLD,COPD,S/P right TMA. Objective - Vital Signs/Intake and Output Vital Signs (last 24 hours): Temp Pulse Resp BP Pulse Ox 98.8 F 99 H 18 135/82 94 L 10/29/18 21:58 10/29/18 21:58 10/29/18 21:58 10/29/18 21:58 10/29/18 21:58 Intake and Output: 10/29/18 10/30/18 18:59 06:59 Intake Total 0 620 Balance 0 620 - Medications Medications: Current Medications Acetaminophen (Tylenol 325mg Tab) 650 mg PO Q4H PRN PRN Reason: Pain, Mild (1-3) Albuterol/Ipratropium (Duoneb 3 Mg/0.5 Mg (3 Ml) Ud) 3 ml IH [id number] [facility] BEDS [facility] Last Admin: 10/29/18 19:19 Dose: 3 ml Alprazolam (Xanax) 0.5 mg PO HS [facility]; Protocol Last Admin: 10/28/18 21:40 Dose: 0.5 mg Amlodipine Besylate (Norvasc) 10 mg PO DAILY [facility] Last Admin: 10/29/18 10:31 Dose: 10 mg Apixaban (Eliquis) 2.5 mg PO BID [facility] 234 B[facility]S [facility]; Protocol Last Admin: 10/29/18 17:10 Dose: 2.5 mg Atorvastatin Calcium (Lipitor) 20 mg PO DAILY [facility] 234 [facility]S [facility] Last Admin: 10/29/18 10:31 Dose: 20 mg Docusate Sodium (Colace) 100 mg PO BID [facility]S [facility] Last Admin: 10/29/18 17:10 Dose: 100 mg Insulin Detemir (Levemir) 60 unit SC [facility] 234 [facility]S [facility] Last Admin: 10/29/18 22:04 Dose: Not Given Insulin Human Lispro (Humalog) 20 units SC [facility] Last Admin: 10/29/18 17:11 Dose: 20 unit Insulin Human Regular (Humulin R High) 0 units SC ACHS [facility] 234 [facility]S [facility]; Protocol Last Admin: 10/29/18 21:34 Dose: Not Given Lisinopril (Zestril) 40 mg PO DAILY [facility] Last Admin: 10/29/18 10:31 Dose: 40 mg Metformin HCl (Glucophage) 1,000 mg PO BID [facility] Last Admin: 10/29/18 17:10 Dose: 1,000 mg Ondansetron HCl (Zofran Inj) 4 mg IVP ONCE PRN PRN Reason: Nausea/Vomiting Oxycodone/Acetaminophen (Percocet 5/325 Mg Tab) 1 tab PO Q6H PRN PRN Reason: Pain, moderate (4-7) Stop: 11/01/18 09:20 Last Admin: 10/29/18 21:54 Dose: 1 tab Oxycodone/Acetaminophen (Percocet 5/325 Mg Tab) 2 tab PO Q6H PRN PRN Reason: Pain, severe (8-10) Stop: 11/01/18 09:20 - Labs Labs: 10/29/18 06:40 10/29/18 06:40 PT 15.6 SECONDS (9.4-12.5) H 10/26/18 08:20 INR 1.38 10/26/18 08:20 APTT 39.9 Seconds (26.9-38.3) H 10/26/18 08:20 - Constitutional Appears: Well, No Acute Distress - Head Exam Head Exam: ATRAUMATIC, NORMAL INSPECTION, NORMOCEPHALIC - Eye Exam Eye Exam: Normal appearance - ENT Exam ENT Exam: Normal External Ear Exam - Neck Exam Neck Exam: Normal Inspection - Respiratory Exam Respiratory Exam: NORMAL BREATHING PATTERN - Cardiovascular Exam Cardiovascular Exam: absent: JVD - GI/Abdominal Exam GI & Abdominal Exam: absent: Distended - Rectal Exam Rectal Exam: Deferred - Exam Additional comments: Deferred. - Extremities Exam Additional comments: Left foot exam not performed. - Back Exam Back Exam: NORMAL INSPECTION - Neurological Exam Neurological Exam: Alert, Awake, Oriented x3 - Psychiatric Exam Psychiatric exam: Normal Affect, Normal Mood - Skin Skin Exam: Normal Color Assessment and Plan - Assessment and Plan (Free Text) Assessment: Euglycemic. Itching of face. Left foot cellulitis. IDDM. PVD. HTN. HLD. COPD. Obeisity. S/P right TMA. Allergy to Heparin, Penicillin, Tetracycline. Plan: Patient agreed to take 30 Units of Levemir. After I saw patient , Benadryl 25 mg PO x 1 was ordered by resident physician. Continue present management.
[2018-10-30] MEDS: Albuterol-Ipratrop 3 mg / 0.5 (3 ml) UD IH SCH ×4 (05:06→10:55)
--- NOTE | 2018-10-30 07:17 | OP ---
PROCEDURE DATE: 10/29/2018 SURGEON: Liseth Menezes DPM [employer] OPERATOR: Dr. Janet Camp, PGY-1 ANESTHESIA: IV sedation with local. PREOPERATIVE DIAGNOSIS: Left foot dry gangrenous fifth digit. POSTOPERATIVE DIAGNOSIS: Left foot dry gangrenous fifth digit. NAME OF PROCEDURE: Left foot fifth digit amputation. INDICATION: The patient is a 38-year-old male with the above diagnosis. The patient has exhausted all conservative treatments at this time and now required surgical intervention. The patient signed the consent after careful explanation of risks, benefits, complications, and alternatives to the surgical procedure. No guarantees were given nor implied. N.p.o. status was confirmed prior to taking the patient to the operating room. PREPARATION: The patient was brought to the operating room and placed on the operating room table in a supine position. Time-out was performed for correct identification of the patient and procedure. After induction of IV sedation, the left foot was then injected with 10 mL of 1:1 mixture of 0.5% Marcaine plain and 1% lidocaine plain in a reverse Imller fashion to the left foot. The foot was then prepped and draped in a normal sterile manner. No tourniquet was used. DESCRIPTION OF PROCEDURE: Attention was drawn to the distal tip of the fifth digit where a circumferential racquet-type incision was made using a #15 blade at the level of the metatarsophalangeal joint. Attention was directed to the fifth digit where the incision was extended down to the subcutaneous layers down to the level of bone metatarsophalangeal joint. Using a bone clamp to stabilize the fifth digit, the proximal phalanx was then disarticulated from the foot to the level of the MTP joint and sent to Pathology. Next, utilizing a bone cutter, the cartilage of the fifth metatarsal head was then resected and passed off from the operating field and sent to Pathology with a clear margin. At this time, the site was then copiously irrigated with normal sterile saline, and a wound culture was taken. Next, a bone rasp was used to smooth the rough edges of the resected metatarsal head. Using a fresh #15 blade, all necrotic and nonviable tissues were then excisionally debrided from the surgical site with additional soft tissue removed to help allow for adequate wound closure. Again, the wound was copiously flushed with sterile saline with bulb syringe. Next, the surgical site was then suture closed using 2-0 Vicryl, and the skin was sutured with 3-0 nylon in a retention like fashion. Next, using 1/4-inch iodoform packing, the surgical site was then packed. Finally, the surgical site was then dressed with 1/4-inch iodoform packing, DSD, ABD, and Kerlix. POSTOPERATIVE CONDITION: The patient tolerated the anesthesia and procedure well and was escorted to the recovery room with vital signs stable and neurovascular status intact to the left foot. The patient is to remain nonweightbearing to the left lower extremity as tolerated with the use of crutches. The patient will return to the floor and Podiatry will continue to follow. Upon discharge, the patient will follow up with Dr. Menezes in office. JANET CAMP Liseth Menezes DPM
[2018-10-30 07:19] LABS: BASO # 0.05 K/mm3 (0.0-2.0); BASO % 0.4 % (0.0-3.0); EOS # 0.4 (0.0-0.7); EOS % 3.2 % (1.5-5.0); HEMOGLOBIN 9.7 g/dL (14.0-18.0); LYMPH # 2.1 (1.2-3.4); LYMPH % 18.5 % (22.0-35.0); MEAN CELL VOLUME 88.8 fl (80.0-105.0); MEAN CORPUSCULAR HGB CONC 31.5 g/dl (31.0-37.0); MEAN PLATELET VOLUME 9.7 fl (7.0-11.0); MONO % 8.2 % (1.0-6.0); RBC 3.47 10^6/uL (3.5-6.1); RED CELL DISTRIBUTION WIDTH 13.8 % (11.5-14.5); WHITE BLOOD COUNT 11.6 10^3/uL (4.5-11.0)
[2018-10-30 07:50] VITALS: BP 114/72; PULSE 88; RESP 20; TEMP 98.4; O2SAT 95
[2018-10-30 07:57] LABS: ALB/GLOB RATIO 1.2 (1.1-1.8); ALBUMIN 3.8 g/dL (3.0-4.8); ALT/SGPT 40 U/L (7-56); AST/SGOT 28 U/L (17-59); BLOOD UREA NITROGEN 24 mg/dL (7-21); CALCIUM 9.1 mg/dL (8.4-10.5); GFR NON-AFRICAN AMERICAN 57
--- NOTE | 2018-10-30 09:33 | CP.PCM.PN ---
Subjective - Date & Time of Evaluation Date of Evaluation: 10/30/18 Time of Evaluation: 09:31 - Subjective Subjective: Podiatry Progress Note: Dr. Menezes 58M patient seen and examined this AM POD#1 left 5th digit amputation. Patient states that he is feeling well today and in no pain to his L lower extremity. Patient denies any nausea/vomiting/fever/shortness of breath/chills. Objective - Vital Signs/Intake and Output Vital Signs (last 24 hours): Temp Pulse Resp BP Pulse Ox 98.4 F 88 20 114/72 95 10/30/18 06:00 10/30/18 06:00 10/30/18 06:00 10/30/18 06:00 10/30/18 06:00 Intake and Output: 10/30/18 10/30/18 06:59 18:59 Intake Total 620 Balance 620 - Medications Medications: Current Medications Acetaminophen (Tylenol 325mg Tab) 650 mg PO Q4H PRN PRN Reason: Pain, Mild (1-3) Albuterol/Ipratropium (Duoneb 3 Mg/0.5 Mg (3 Ml) Ud) 3 ml IH [id number] [facility] Last Admin: 10/30/18 07:19 Dose: Not Given Alprazolam (Xanax) 0.5 mg PO HS [facility]; Protocol Last Admin: 10/30/18 07:17 Dose: Not Given Amlodipine Besylate (Norvasc) 10 mg PO DAILY [facility] Last Admin: 10/29/18 10:31 Dose: 10 mg Apixaban (Eliquis) 2.5 mg PO BID [facility]; Protocol Last Admin: 10/29/18 17:10 Dose: 2.5 mg Atorvastatin Calcium (Lipitor) 20 mg PO DAILY [facility] Last Admin: 10/29/18 10:31 Dose: 20 mg Docusate Sodium (Colace) 100 mg PO BID [facility] Last Admin: 10/29/18 17:10 Dose: 100 mg Insulin Detemir (Levemir) 60 unit SC [facility] Last Admin: 10/29/18 22:04 Dose: Not Given Insulin Human Lispro (Humalog) 20 units SC AC [facility] Last Admin: 10/29/18 17:11 Dose: 20 unit Insulin Human Regular (Humulin R High) 0 units SC [facility]; Protocol Last Admin: 10/29/18 21:34 Dose: Not Given Lisinopril (Zestril) 40 mg PO DAILY [facility] Last Admin: 10/29/18 10:31 Dose: 40 mg Metformin HCl (Glucophage) 1,000 mg PO BID [facility] Last Admin: 10/29/18 17:10 Dose: 1,000 mg Ondansetron HCl (Zofran Inj) 4 mg IVP ONCE PRN PRN Reason: Nausea/Vomiting Oxycodone/Acetaminophen (Percocet 5/325 Mg Tab) 1 tab PO Q6H PRN PRN Reason: Pain, moderate (4-7) Stop: 11/01/18 09:20 Last Admin: 10/29/18 21:54 Dose: 1 tab Oxycodone/Acetaminophen (Percocet 5/325 Mg Tab) 2 tab PO Q6H PRN PRN Reason: Pain, severe (8-10) Stop: 11/01/18 09:20 - Labs Labs: 10/30/18 07:00 10/30/18 07:00 PT 15.6 SECONDS (9.4-12.5) H 10/26/18 08:20 INR 1.38 10/26/18 08:20 APTT 39.9 Seconds (26.9-38.3) H 10/26/18 08:20 - Constitutional Appears: Non-toxic, No Acute Distress - Extremities Exam Additional comments: LLE focused, R TMA VASC: DP pulse faintly palpable, nonpalpable PT pulse; cap refill delayed to digits 1-4 DERM: Surgical site sutures intact with no dehiscence, opening to central aspect of surgical site secondary to lack of skin closure, no purulence, no drainage, no clinical signs of infection appreciated ORTHO: no pain or tenderness on palpation of midfoot or digits, 5th digit amputation NEURO: diminished - Neurological Exam Neurological Exam: Alert, Awake, Oriented x3 - Psychiatric Exam Psychiatric exam: Normal Mood - Skin Skin Exam: Warm Assessment and Plan - Assessment and Plan (Free Text) Assessment: 58M with 1) L foot chronic lisfranc fracture 2) Left foot dry gangrene of 5th digit s/p L 5th digit amp Plan: Patient seen and evaluated with Dr. Menezes WBC 11.6, afebrile L foot x-ray - lisfranc fracture present, fractures at bases of 2,3,4 metatarsals, no evidence of OM L foot CT - displaced transverse fracture through the base of the 2nd met; lisfranc dilocation at mets 3,4,5 relative to 3rd cuneiform and cuboid, lateral shift of metatarsals L foot MRI (10/02) - no evidence of OM LIYA/PVR - calcified vessels, b/l popliteal, trifurcation, tibial disease, possible left SFA occlusive disease NWB in CAM boot Patient stable for d/c from podiatry standpoint VNS dressing changes every other day; calcium alginate, DSD, ABD, Kerlix F/U with Dr. Menezes in office next November 08
--- NOTE | 2018-10-30 09:50 | PN ---
SUBJECTIVE: The patient was seen and examined at bedside on the general medical velez. No acute events overnight. He remains afebrile, hemodynamically stable and is doing well s/p amputation of his left fifth toe. This morning he feels well and is pending possible discharge to home. OBJECTIVE: VITAL SIGNS: Temperature 98.4, pulse 88, blood pressure 114/72, respiratory rate 20, oxygen saturation 95% on room air. GENERAL: Obese, nontoxic appearing man, sitting up in bed in no apparent distress. HEENT: PERRL, EOMI. No scleral icterus. No conjunctival pallor. NECK: No JVD. No bruits. LUNGS: Clear to auscultation. CARDIOVASCULAR: Regular rate and rhythm. Normal S1, S2. No murmurs. ABDOMEN: Obese, normoactive bowel sounds, soft, nontender, nondistended. EXTREMITIES: No edema. Left foot with Anjel wrapping in place. NEUROLOGIC: Awake, alert and oriented x 3. No focal motor deficits. LABORATORY DATA: WBC 11.6 with 69% neutrophils, hemoglobin 9.7, hematocrit 31, platelets 277. Chemistry reviewed and unremarkable. ASSESSMENT: The patient is a 58-year-old man with multiple medical comorbidities including insulin-dependent diabetes mellitus and severe PVD s/p right TMA s/p IR revascularization who was admitted for management of sepsis secondary to left foot cellulitis and is now s/p amputation of the left foot fifth digit POD #1. PLAN: 1. Sepsis secondary left foot cellulitis, resolved. Input from Dr. Menezes noted. The patient has completed a course of antimicrobials as per Dr. Cote and remains afebrile and hemodynamically stable. 2. Severe PVD s/p right TMA s/p IR revascularization s/p amputation of the left foot fifth digit POD #1. Continue with postoperative care as per Dr. Menezes. Continue Lipitor 20 mg p.o. daily and Eliquis 5 mg p.o. b.i.d. 3. Insulin-dependent diabetes mellitus. Continue Levemir 120 units sc qhs, Humalog 20 units sc tid, Metformin 1000 mg p.o. b.i.d. and high dose insulin sliding scale for coverage. 4. Hypertension. Continue Amlodipine 10 mg p.o. daily and Lisinopril 40 mg p.o. daily. 5. Hyperlipidemia. Continue Lipitor 20 mg p.o. daily. 6. Anxiety disorder. Continue Xanax 0.5 mg p.o. at bedtime. 7. COPD. Continue supplemental oxygen and bronchodilators as needed. 8. Prophylaxis. GI prophylaxis not indicated as the patient is eating. DVT prophylaxis not indicated as he remains on Eliquis. CODE STATUS: Full code. Rojelio Garzon MD MTDD
[2018-10-30] MEDS: Insulin Reg-HIGH-Coverage SC SCH ×2 (10:33→12:04)
[2018-10-30] MEDS: Insulin Detemir 100 units/ml Vial (Levemir) SC SCH (10:33)
[2018-10-30] MEDS: Insulin Lispro 1 UNITS/0.01 ML SC SCH ×2 (10:36→12:05)
== END 2018-10-30 13:47 | disposition home health service (06) | DRG 854 ==
LOC: SDSVAS 08:05 → SDAVASINP 13:29 → 2RSO 13:29 → SDSVAS 13:29 → 2RSO 13:29 → UNDOADMIN 13:29 → 2RSO 15:10 → 5RNO 21:05
PROVIDERS: ADMIT Internal Medicine; ATTEND Internal Medicine
PROC: 04CL3ZZ Extirpation of Matter from Left Femoral Artery, Percutaneous Approach (ICD-10-PCS; 2018-10-26)
PROC: 047Q3ZZ Dilation of Left Anterior Tibial Artery, Percutaneous Approach (ICD-10-PCS; 2018-10-26)
PROC: 047S3ZZ Dilation of Left Posterior Tibial Artery, Percutaneous Approach (ICD-10-PCS; 2018-10-26)
PROC: 047L3ZZ Dilation of Left Femoral Artery, Percutaneous Approach (ICD-10-PCS; 2018-10-26)
PROC: B41D1ZZ Fluoroscopy of Aorta and Bilateral Lower Extremity Arteries using Low Osmolar Contrast (ICD-10-PCS; 2018-10-26)
PROC: 3E033PZ Introduction of Platelet Inhibitor into Peripheral Vein, Percutaneous Approach (ICD-10-PCS; 2018-10-26)
PROC: 0Y6N0ZF Detachment at Left Foot, Partial 5th Ray, Open Approach (ICD-10-PCS; principal; 2018-10-29 07:30)
DX: A41.9 Sepsis, unspecified organism (principal); E11.52 Type 2 diabetes mellitus with diabetic peripheral angiopathy with gangrene; L03.116 Cellulitis of left lower limb; Z68.41 Body mass index [BMI] 40.0-44.9, adult; M84.475A Pathological fracture, left foot, initial encounter for fracture; E11.9 Type 2 diabetes mellitus without complications; J44.9 Chronic obstructive pulmonary disease, unspecified; I10 Essential (primary) hypertension; F41.9 Anxiety disorder, unspecified; E66.01 Morbid (severe) obesity due to excess calories; E78.5 Hyperlipidemia, unspecified; Z79.4 Long term (current) use of insulin; Z88.8 Allergy status to other drugs, medicaments and biological substances; Z88.1 Allergy status to other antibiotic agents; Z88.0 Allergy status to penicillin; L29.9 Pruritus, unspecified